=== PATIENT | female | born 1965 | race Caucasian/White ===

== ENCOUNTER 2024-10-17 13:40 | Outpatient (CLI) | payer MEDICARE, SELFPAY ==
--- OUTSIDE RECORDS SUMMARY | 2024-10-17 14:04 | XMS_ITS | Patient Health Record ---
Author Organization [facility] Address [address] [address] [place] [address] Care Team Providers Care Shipping Room Supervisor Name Role Phone Carlos Osborn Unavailable [phone] Reason For Referral No Information Medications Medication SIG (Take, Route, Frequency, Duration) Notes Start Date End Date Status Escitalopram Oxalate 10 mg TAKE ONE TABL ET BY MOUTH DAILY AT 9 AM; Duration: 90 Active Calcitriol 0.25 MCG 1 capsule Orally Onc e a day; Duration: 90 days 11/25/2023 01/14/2025 Active Vitamin D (Ergocalciferol) 1.25 MG (32245 UT) TAKE 1 CAPSULE BY MOUTH EVERY TUESDAY AT 9AM ONE TIME A WEEK; Duration: 88 Active Allopurinol 200 MG 1 tablet Orally Once a day; Duration: 90 days 11/25/2023 01/14/2025 Active Losartan Potassium 25 MG 1 tablet Orally Once a day; Duration: 90 days 06/16/2022 Active Problems Problem Type SNOMED Code ICD Code Onset Dates Problem Status W/U Status Risk Notes Problem Hyperglycemia due to type 2 diabetes mellitus (819760833048574) Type 2 diabetes mellitus with hyperglycemia (E11.65) Active confirmed Problem Vitamin D deficiency (35842816) Vitamin D deficiency, unspecified (E55.9) Active confirmed Problem Essential hypertension (83728361) Essential (primary) hypertension (I10) Active confirmed Problem Heart failure (62818901) Heart failure, unspecified (I50.9) Active confirmed Problem Chronic kidney disease stage 2 (345689316) Chronic kidney disease, stage 2 (mild) (N18.2) Active confirmed Problem Chronic kidney disease stage 3 (disorder) (804724814) Chronic kidney disease, stage 3 unspecified (N18.30) Active confirmed Problem Chronic kidney disease, stage 3b (N18.32) Active confirmed Encounters Encounter Location Date Provider Diagnosis [place] [facility] [address] [facility] [address] [place] [address] 10/21/2023 Carlos Osborn Chronic kidney disease, stage 3b N18.32 ; Essential (primary) hypertension I10 ; Type 2 diabetes mellitus with hyperglycemia E11.65 ; Heart failure, unspecified I50.9 and Vitamin D deficiency, unspecified E55.9 [facility] [address] [place] [address] 11/25/2023 Carlos sOborn Chronic kidney disease, stage 3 unspecified N18.30 ; Type 2 diabetes mellitus with hyperglycemia E11.65 ; Essential (primary) hypertension I10 ; Proteinuria, unspecified R80.9 ; Heart failure, unspecified I50.9 and Vitamin D deficiency, unspecified E55.9 [facility] [address] [place] [address] 01/20/2024 Carlos Osborn Essential (primary) hypertension I10 ; Chronic kidney disease, stage 3b N18.32 ; Heart failure, unspecified I50.9 ; Type 2 diabetes mellitus with hyperglycemia E11.65 ; Vitamin D deficiency, unspecified E55.9 ; Chronic kidney disease, stage 3 unspecified N18.30 and Chronic kidney disease, stage 2 (mild) N18.2 [facility] [address] [place] [address] 07/31/2024 Carlos Osborn [facility] [place] [facility] [address] [place] [address] 07/31/2024 Carlos Osborn [facility] [address] [place] [address] 11/25/2023 Carlos Osborn [facility] [address] [facility] [address] [place] [address] 01/20/2024 Carlos Osborn Assessments Encounter Date Diagnosis (ICD Code) Assessment Notes Treatment Notes Treatment Clinical Notes Section Notes 10/21/2023 Chronic kidney disease, stage 3b (ICD-10 - N18.32) 11/25/2023 Chronic kidney disease, stage 3 unspecified (ICD-10 - N18.30) 01/20/2024 Essential (primary) hypertension (ICD-10 - I10) 01/20/2024 Chronic kidney disease, stage 3b (ICD-10 - N18.32) 01/20/2024 Heart failure, unspecified (ICD-10 - I50.9) 11/25/2023 Type 2 diabetes mellitus with hyperglycemia (ICD-10 - E11.65) 10/21/2023 Essential (primary) hypertension (ICD-10 - I10) 10/21/2023 Type 2 diabetes mellitus with hyperglycemia (ICD-10 - E11.65) 11/25/2023 Essential (primary) hypertension (ICD-10 - I10) 01/20/2024 Type 2 diabetes mellitus with hyperglycemia (ICD-10 - E11.65) 01/20/2024 Vitamin D deficiency, unspecified (ICD-10 - E55.9) 11/25/2023 Proteinuria, unspecified (ICD-10 - R80.9) 10/21/2023 Heart failure, unspecified (ICD-10 - I50.9) 10/21/2023 Vitamin D deficiency, unspecified (ICD-10 - E55.9) 11/25/2023 Heart failure, unspecified (ICD-10 - I50.9) 01/20/2024 Chronic kidney disease, stage 3 unspecified (ICD-10 - N18.30) 01/20/2024 Chronic kidney disease, stage 2 (mild) (ICD-10 - N18.2) 11/25/2023 Vitamin D deficiency, unspecified (ICD-10 - E55.9) Plan Of Treatment No Information
--- OUTSIDE RECORDS SUMMARY | 2024-10-17 14:04 | XMS_ITS | Clinical Summary ---
Author Organization [facility] Address [address] [place] [address] Care Team Providers Care Utility Sales Representative Name Role Phone Ronnell Smith MD Primary Care Provider + [phone] Allergies No known active allergies Medications albuterol HFA (PROVENTIL HFA,VENTOLIN HFA,PROAIR HFA) 90 mcg/actuation inhaler albuterol sulfate HFA 90 mcg/actuation aerosol inhaler INHALE 2 PUFFS BY MOUTH EVERY 4 HOURS Active atorvastatin (LIPITOR) 20 mg tablet Take 20 mg by mouth daily with dinner 0 Active OneTouch Verio test strips strip USE TO TEST BS BID 0 Active blood-glucose meter (OneTouch Verio Meter) [facility] OneTouch Verio Meter USE TO TEST BS ONCE DAILY Active lancets 33 gauge [facility] OneTouch Delica Plus Lancet 33 gauge USE TO TEST BS BID Active aspirin 81 mg enteric coated tablet Take 81 mg by mouth daily with dinner Active dapagliflozin (FARXIGA) 10 mg tabletIndication s:type 2 diabetes mellitus and heart failure with reduced ejection fraction Take 1 tablet (10 mg total) by mouth daily before dinner 30 tablet 1 Active carvediloL (COREG) 6.25 mg tablet Take 6.25 mg by mouth daily with dinner 1 Active clopidogreL (PLAVIX) 75 mg tablet Take 75 mg by mouth daily with dinner 1 Active cholecalciferol (VITAMIN D-3) 25 mcg (1,000 unit) tablet Take 1,000 Units by mouth daily 0 Active ferrous gluconate (FERGON) 240 mg (27 mg of elemental iron) tablet Take 1 tablet by mouth daily 0 Active glucosamine-meghan droitin 500-400 mg tablet Take 1 tablet by mouth daily 0 Active TURMERIC ORAL Take 500 mg by mouth daily Active Lactobacillus acidophilus (PROBIOTIC ACIDOPHILUS ORAL) Take 1 capsule by mouth daily Active amiodarone (PACERONE) 200 mg tabletIndication s:Prevention of Recurrent Atrial Fibrillation Take 1 tablet (200 mg total) by mouth daily 30 tablet 1 Active meclizine (ANTIVERT) 25 mg tabletIndication s:Vertigo [The details of the medication are not available because there are pending changes by a home health clinician.] 30 tablet 1 Active Additional Information Patient taking differently:25 mg oral4 times daily PRN, dizziness, nausea, Indications: Vertigo, Reported on 06/11/2020 furosemide (LASIX) 40 mg tablet [The details of the medication are not available because there are pending changes by a home health clinician.] 30 tablet 1 Active Additional Information Patient taking differently: 20 mgoral Daily,Indications: Edema, Reported on 06/24/2020 Active Problems Problem Noted Date Diagnosed Date Coronary artery disease invo lving [place] heart without angina pectoris 05/26/2020 Overview (05/26/2020): Added automatically from request for surgery [id number] Lightheadedness 01/10/2020 Assessment & Plan (02/11/2020 9:22 AM NUTRITION THERAPIST): Patient has undergone MRA brain which demonstrates no evidence of large vessel vertebral basilar insufficiency. As per my initial note, I had recommended that if the MRA was unrevealing of large vessel vertebral basilar insufficiency, then I would recommend she follow-up with her PCP for consideration of referral for tilt- table testing for further investigation of potential autonomic neuropathy as the etiology for her lightheadedness. Assessment & Plan (01/10/2020 9:12 AM CDT): Patient reports a several month history of recurrent lightheadedness. Diagnostic considerations would include vertebrobasilar insufficiency and possible autonomic neuropathy associated with her diabetes. I will obtain an MRI and MR angiogram of the brain to screen for vertebrobasilar insufficiency. If unrevealing she may wish to pursue a tilt-table evaluation to evaluate for a potential autonomic neuropathy. Episodic tension-type headache, not intractable 01/10/2020 Assessment & Plan (02/11/2020 9:21 AM NUTRITION THERAPIST): Patient describes continued episodic headaches with clear historical characterization consistent with muscle contraction type headaches. She does have an upcoming MRI brain scheduled for February 21 to exclude structural abnormalities accounting for her headaches. I have asked that to upon its completion that she contact this office for the results and any further recommendations. Follow-up with me will be based on the MRI results and follow-up recommendations. Assessment & Plan (01/10/2020 9:11 AM CDT): Patient provides a historical description of headache consistent with muscle contraction type head pains. She does have a noncontrast CT scan of the brain which is normal. As part of further evaluation I will obtain an MRI and MR angiogram of the brain. Idiopathic peripheral neuropathy 01/10/2020 Assessment & Plan (02/11/2020 9:21 AM NUTRITION THERAPIST): Patient has history of peripheral neuropathy in the examination consistent demonstrating a reflexia in her ankle jerks and a sensory loss in a stocking distribution symmetrically. Assessment & Plan (01/10/2020 9:13 AM CDT): Patient has clinical evidence of peripheral neuropathy manifest as a stocking distribution sensory loss in addition to a reflexia and her ankle jerks. She is not having any pain issues at this time. Dyslipidemia 07/06/2019 Diabetes mellitus 05/11/2019 Immunizations Immunization Administration Dates Next Due Influenza, Quadrivalent, Spl it, Preservative Free, Intramuscular 02/24/2020 Surgical History Surgery Date Site/Laterality Comments LUNG SURGERY Left empyema TUBAL LIGATION Medical History Medical History Date Comments Smoking High cholesterol PONV (postoperative nausea and vomiting) Coronary artery disease Mitral valve disorder Wound, open, foot left heel, isaiah betic wound Pleural effusion on right Type 2 diabetes mellitus (HCC) Anemia Arthritis Family History Medical History Relation Name Comments Alcohol abuse Father Atrial fibrillation Mother Diabetes Mother No Known Problems Sister 1 Diabetes Sister 2 Heart attack Sister 2 Relation Name Status Comments Father Mother Alive Sister 1 Alive Sister 2 Social History Tobacco Use Types Packs/Day Years Used Date Smoking Tobacco: Every Day Smokeless Tobacco: Never Tobacco Cessation:Ready to Q uit: Yes; Counseling Given: Yes Comments:3 cigarettes daily Social Connection and Isolat ion Panel [NHANES] Answer Date Recorded In a typical week, how many times do you talk on the phone with family, friends, or neighbors? More than three times a week 05/22/2020 How often do you get togethe r with friends or relatives? More than three times a week 05/22/2020 How often do you attend chur ch or yazdanism services? Never 05/22/2020 Do you belong to any clubs o r organizations such as sabianist groups, unions, fraternal or athletic groups, or school groups? No 05/22/2020 How often do you attend meet ings of the clubs or organizations you belong to? Never 05/22/2020 Marital Status Not on file 05/22/2020 AUDIT-C Answer Date Recorded Q1: How often do you have a drink containing alc ohol? Monthly or less 05/30/2020 Q2: How many drinks containi ng alcohol do you have on a typical day when you are drinking? 3 or 4 05/30/2020 Frequency of Binge Drinking Not on file 05/19 Overall Financial Resource Strain (CARDIA) Answe r Date Recorded How hard is it for you to pa y for the very basics like food, housing, medical care, and heating? Not hard at all 05/22/2020 PRAPARE - Transportation Answer Date Re corded In the past 12 months, has l ack of transportation kept you from medical appointments or from getting medications? No 06/2020 In the past 12 months, has l ack of transportation kept you from meetings, work, or from getting things needed for daily living? No 05/22/2020 Comments No Sex and Gender Information Value Date Recorded Sex Assigned at Not on file Legal Sex Female 1:13 AM NUTRITION THERAPIST Gender Identity Not on file Sexual Orientation Not on file Obstetrics History Para Term AB IAB SAB Ectopic Multiple Livin g Live Births 2 2 2 Date Outcome GA Total Labor Labor/2nd/3rd Weight Sex Type Anes PTL Lissett A1 A5 Name Clin Term Term Last Filed Vital Signs Vital Sign Reading Time Taken Comments Blood Pressure 112/82 07/09/2020 1:41 PM CDT Pulse 82 07/09/2020 1:41 PM CDT Temperature 36.7 C (98 F) 07/09/2020 1:41 PM CDT Respiratory Rate 14 07/09/2020 1:41 PM CDT Oxygen Saturation 99% 07/09/2020 1:41 PM CDT Inhaled Oxygen Concentration - - Weight 69.9 kg (154 lb) 07/09/2020 1:41 PM CDT Height 157.5 cm (5' 2) 07/09/2020 1:41 PM CDT Body Mass Index 28.17 07/09/2020 1:41 PM CDT Plan of Treatment Not on file Medical Devices Implanted Type Area Automatic Head Sawyer Device Identifier Shelf Expiration Date Model / Serial / Lot [employer] [id number] Solia S 53cm Steroid Elute Bipolar Active Fixation Endocardial - [id number] - [id number] Implanted:Qty: 1 on 06/06/2020 by Omero Osullivan MD at [facility] Lead [employer] [id number] 02/17/2022 [id number] / [id number] 90 / [employer] [id number] Solia S 45cm Bipolar Active Fixation Lead Pacing Steroid Eluting - [id number] - [id number] Implanted:Qty: 1 on 06/06/2020 by Omero Osullivan MD at [facility] Lead [employer] [id number] 02/17/2022 [id number] / [id number] 97 / [employer] [id number] Edora Promri 47b67t2.5mm Dual Chamber Rate Adaptive Unipolar Bipolar - [id number] - [id number] Implanted:Qty: 1 on 06/06/2020 by Omero Osullivan MD at [facility] Pacemaker [employer] [id number] 08/18/2021 [id number] / [id number] / [employer] [id number] Didier-Naza rtgalilea-Smith Imr Etlogix 28mm 3d Reduced Curvature - [id number] - [id number] Implanted:Qty: 1 on 06/02/2020 by Hosea Carreon MD at [facility] N/A: Heart [employer] 02/16/2025 [id number] / [id number] / Description:Mitral ring [employer] [id number] Ozzy [facility] Physio 28mm Tricuspid Ring Annuloplasty Heart - [id number] - [id number] Implanted:Qty: 1 on 06/02/2020 by Hosea Carreon MD at [facility] N/A: Heart [employer] 02/04/2025 [id number] / [id number] / Description:Tricuspid ring Insurance [facility] MEDICARE ADVANTAGE IDPA IDPA [facility] MEDICARE ADVANTAGE IDPA Advance Directives For more information, please contact: [phone] * Full Code (Latest Code Status on File) Date Activated Date Inactivated Comments 06/02/2020 4:51 PM 06/09/2020 10:02 PM * Full Code Date Activated Date Inactivated Comments 05/21/2020 3:35 PM 05/24/2020 6:03 PM Care Teams Utility Sales Representative Relationship Specialty Start Date End Date Ronnell Smith MD PCP - General Internal Medicine 02/11/20
--- OUTSIDE RECORDS SUMMARY | 2024-10-17 14:04 | XMS_ITS | Continuity of Care Document ---
Author Organization [facility] Address [address] [facility] [address] [place] [address] Phone Care Team Providers Care Intelligence Support Officer Name Role Phone Cynthia Vang Unavailable Unavailable Advance Directives Directive Yes / No Effective Date File Name No Information Encounters Encounter Description Practice Location Reason(s) For Visit Diagnoses Date Provider Providers Copied on Encounter [facility], [address], [place], [place], [address], [place] tel:[phone] [facility] [place] No Information Sep-0 4-200 1 Ciera Marie. [address] [facility] , [address], [place], [address], [place]. tel:[phone] Family History Family Member Type Diagnosis Age At Onset No Information Payers Payer name Insurance type Covered alliance party ID Authoriza tion(s) No Information Social History Type Description Quantity Date Captured Comments Sex Female Smoking Status No Information Chief Complaint And Reason For Visit No Information Reason For Referral Reason For Referral No Information History Of Present Illness Encounter Date Complaint History Of Prese nt Illness No Information Functional Status Date Functional Assessmen t No Information Instructions Date Instruction Additional Infor mation No Information Assessments Type Assessment Date No Information Patient Care Teams Name Effective Dates (start - stop) Status Members No Information
--- OUTSIDE RECORDS SUMMARY | 2024-10-17 14:04 | XMS_ITS | Referral Summary ---
Author Organization [facility] Address [address] [place] [address] Care Team Providers Care Electric Motorman Name Role Phone Ronnell Smith MD Primary Care Provider + [phone] Allergies No known active allergies Medications albuterol HFA (PROVENTIL HFA,VENTOLIN HFA,PROAIR HFA) 90 mcg/actuation inhaler albuterol sulfate HFA 90 mcg/actuation aerosol inhaler INHALE 2 PUFFS BY MOUTH EVERY 4 HOURS Active atorvastatin (LIPITOR) 20 mg tablet Take 20 mg by mouth daily with dinner 0 Active OneTouch Verio test strips strip USE TO TEST BS BID 0 Active blood-glucose meter (OneTouch Verio Meter) [facility] OneTouch Verio Meter USE TO TEST BS ONCE DAILY Active lancets 33 gauge [facility] OneTouch Delica Plus Lancet [...] Diagnosed Date Coronary artery disease invo lving [place] heart without angina pectoris 05/26/2020 Overview (05/26/2020): Added automatically from request for surgery [id number] Lightheadedness 01/10/2020 Assessment & Plan (02/11/2020 9:22 AM VIDEO PRODUCTION SPECIALIST): Patient has undergone MRA brain which demonstrates [...] 01/10/2020 Assessment & Plan (02/11/2020 9:21 AM VIDEO PRODUCTION SPECIALIST): Patient describes continued episodic headaches with clear [...] 01/10/2020 Assessment & Plan (02/11/2020 9:21 AM VIDEO PRODUCTION SPECIALIST): Patient has history of peripheral neuropathy in [...] Quadrivalent, Spl it, Preservative Free, Intramuscular 02/24/2020 Social History Tobacco Use Types Packs/Day Years [...] often do you attend chur ch or zoroastrianism services? Never 05/22/2020 Do you belong to any clubs o r organizations such as restorationist groups, unions, fraternal or athletic groups, or [...] on file Legal Sex Female 1:13 AM VIDEO PRODUCTION SPECIALIST Gender Identity Not on file Sexual Orientation Not on file Last Filed Vital Signs Vital Sign Reading [...] on file Medical Devices Implanted Type Area Office Support Associate Device Identifier Shelf Expiration Date Model / Serial / Lot Bi[employer]ik Inc [id number] Solia S 53cm Steroid Elute Bipolar Active Fixation Endocardial - [id number] - [id number] Implanted:Qty: 1 on 06/06/2020 by Omero Osullivan MD at [facility] Lead [employer] [id number] 02/17/2022 [id number] / [id number] 90 / [employer] [id number] Solia S 45cm Bipolar Active Fixation Lead Pacing Steroid Eluting - [id number] - [id number] Implanted:Qty: 1 on 06/06/2020 by Omero Osullivan MD at [facility] Lead [employer] [id number] 02/17/2022 [id number] / [id number] 97 / [employer] [id number] Edora Promri 01c98e6.5mm Dual Chamber Rate Adaptive Unipolar Bipolar - [id number] - [id number] Implanted:Qty: 1 on 06/06/2020 by Omero Osullivan MD at [facility] Pacemaker [employer] [id number] 08/18/2021 [id number] / [id number] / [employer] [id number] Sue west-Smith Imr Etlogix 28mm 3d Reduced Curvature - [id number] - [id number] Implanted:Qty: 1 on 06/02/2020 by Hosea Carreon MD at [facility] N/A: Heart [employer] 02/16/2025 [id number] / [id number] / Description:Mitral ring [employer] [id number] Ozzy rds Physio 28mm Tricuspid Ring Annuloplasty Heart - [id number] - [id number] Implanted:Qty: 1 on 06/02/2020 by Hoesa Carreon MD at [facility] N/A: Heart [employer] 02/04/2025 [id number] / [id number] / Description:Tricuspid ring Insurance [facility] MEDICARE ADVANTAGE [facility] Address: [address] [address] [place] [address] IDPA [facility] MEDICARE ADVANTAGE [facility] Address: [facility] [address] [place] [address] IDPA Advance Directives For more information, please contact: [phone] * Full Code (Latest Code Status on File) Date Activated Date Inactivated Comments 06/02/2020 4:51 PM 06/09/2020 10:02 PM * Full Code Date Activated Date Inactivated Comments 05/21/2020 3:35 PM 05/24/2020 6:03 PM Care Teams Electric Motorman Relationship Specialty Start Date End Date Ronnell Smith MD PCP - General Internal Medicine 02/11/20
--- OUTSIDE RECORDS SUMMARY | 2024-10-17 14:04 | XMS_ITS ---
Author Organization [facility] Address [address] [facility] [address] [facility] [address] [place] [address] Care Team Providers Care Lathe Mechanic Name Role Phone Anurag Carlos Unavailable [phone] Encounters Encounter Location Date Provider Diagnosis [place] [facility] [address] [facility] [address] [place] [address] 03/30/2024 Carlos Osborn Plan Of Treatment No Information Progress Notes * SANJAY GUERRAB:1965 (59 yo M)Acc No.[id number]:03/30/2024 Progress Notes Patient: NANDA GLORIA Provider: Tiny RUFF MD, Tad.Phu.C.P, F.A.S.N. :1965 A ge:59 Y S ex:Male Date:03/30/2024 Address:[address] [place] [address] Subjective: * Chief Complaints: * * Medical History: Objective: * Vitals: Assessment: Plan: * Treatment: * Billing Information: * Visit Code: * Procedure Codes: * Electronic signature of Anand Osborn MD on 10/17/2024 at 02:04 PM CDT Sign off status: Pending * Provider: Tiny RUFF MD, F.Phu.C.P, F.A.S.N. Date: 0 03/30/2024 Generated for Printing/Faxing/eTransmitting on: 10/17/2024 02:04 PM CDT
--- OUTSIDE RECORDS SUMMARY | 2024-10-17 14:04 | XMS_ITS ---
Author Organization [facility] Address [address] [address] [place] [address] Care Team Providers Care Dredge Pipeman Name Role Phone Anurag Carlos Unavailable [phone] Medications Medication SIG (Take, Route, Frequency, Duration) Notes Start Date End Date Status Escitalopram Oxalate 10 mg TAKE ONE TABL ET BY MOUTH DAILY AT 9 AM; Duration: 90 Active Vitamin D (Ergocalciferol) 1.25 MG (41683 UT) TAKE 1 CAPSULE BY MOUTH EVERY TUESDAY AT 9AM ONE TIME A WEEK; Duration: 88 Active Losartan Potassium 25 MG 1 tablet Orally Once a day; Duration: 90 day(s) 06/16/2022 Active Problems Problem Type SNOMED Code ICD Code Onset Dates Problem Status W/U Status Risk Notes Problem Chronic kidney disease, stage 3 unspecified (N18.30) Active confirmed Encounters Encounter Location Date Provider Diagnosis [facility] [address] [facility] [address] [place] [address] 11/25/2023 Carlos Osborn Chronic kidney disease, stage [...] - E55.9) Plan Of Treatment No Information Progress Notes * SANJAY GUERRAB:1965 (59 yo M)Acc No.[id number]:[birth year]23 Progress Notes Patient: NANDA GLORIA Provider: Tiny RUFF MD, Mechelle.P, F.A.S.N. :1965 A ge:58 Y S ex:Male Date:11/25/2023 Address:[address] [place] [address] Subjective: * Chief Complaints: * * Medical History: * Medications: T aking Losartan Potassium 25 MG Tablet 1 tablet Orally Once a day , Taking Vitamin D (Ergocalciferol) 1.25 MG (71761 UT) Capsule TAKE 1 CAPSULE BY MOUTH [...] Treatment: * Billing Information: * Visit Code: 54640 Office Visit, Est Pt., Level 4. * Procedure Codes: * Electronic signature of Anand Osborn MD on 10/17/2024 at 02:03 PM CDT Sign off status: Pending * Provider: Tiny RUFF MD, Tad.Phu.Brant.P, F.A.S.N. Date: 11/25/2023 Generated for Printing/Faxing/eTransmitting on: 10/17/2024 02:03 PM CDT
--- OUTSIDE RECORDS SUMMARY | 2024-10-17 14:04 | XMS_ITS | Clinical Summary ---
Author Organization [facility] Address [address] [place] [address] Care Team Providers Care Anthropology Professor Name Role Phone Ronnell Smith MD Primary Care Provider [phone] Social History Tobacco Use Types Packs/Day Years Used Date Smoking Tobacco: Never Assessed Comments Unknown Sex and Gender Information Value Date Recorded Sex Assigned at Not on file Legal Sex Female 2:07 PM CDT Gender Identity Not on file Sexual Orientation Not on file Plan of Treatment Health Maintenance Due Date Last Done Comments Cervical Cancer Screening Pa p Smear (Age 30 to 64) Every 3 Years 1965 Colorectal Cancer Screening Colonoscopy (10 Years) 1965 Annual Physical 1968 Hepatitis C 1983 DTaP, Tdap and Td Vaccines ( 1 - Tdap) 1984 Cervical Cancer Screening Pa p with HPV Testing (Age 30 to 64) Every 5 Years 1995 Cervical Cancer Screening with HPV 1995 Mammogram Screening 2005 Pneumococcal Vaccine: 50+ Ye ars (1 of 1 - PCV) 2015 Zoster Vaccines (1 of 2) 2015 COVID-19 Vaccine (2023-2 5 season) 2023 Meningococcal B Vaccine Aged Out No l onger eligible based on patient's age to complete this topic Meningococcal Vaccine Aged Out No sayra solo eligible based on patient's age to complete this topic RSV Immunizations Under 20 Months Aged Out No longer eligible based on patient's age to complete this topic Insurance [facility] Care Teams Anthropology Professor Relationship Specialty Start Date End Date Ronnell Smith MD PCP - General INTERNAL MEDICINE 11/29/19
--- OUTSIDE RECORDS SUMMARY | 2024-10-17 14:05 | XMS_ITS | Clinical Summary ---
Author Organization [facility] Address [address] [facility], [place] [address] Phone Care Team Providers Care Proposal Lead Writer Name Role Phone Renzo Castañeda APRN, ART COORDINATOR Primary Care Provider + Allergies No known active allergies Medications meloxicam (MOBIC) 7.5 MG Tablet TK 1 T PO BID 3 09/04/2018 Active Family History Medical History Relation Name Comments Heart Disease Father Diabetes Mother Relation Name Status Comments Father Mother Social History Tobacco Use Types Packs/Day Years Used Date Smoking Tobacco: Every Day Cigarettes 0.5 37 Smokeless Tobacco: Never Alcohol Use Standard Drinks/Week Comments Yes 0 (1 standard drink = 0.6 oz pur e alcohol) occasional Comments Unknown Sex and Gender Information Value Date Recorded Sex Assigned at Not on file Legal Sex Female 11:41 AM CDT Gender Identity Not on file Sexual Orientation Not on file Plan of Treatment Health Maintenance Due Date Last Done Comments Hepatitis C Virus (HCV) Screening 1965 TdaP Immunization 1965 Pap Smear 1986 Cervical Cancer Screening (CCS) 1995 HPV/Cotest 1995 Cologuard 2010 Colonoscopy 2010 Colorectal Cancer Screening 2010 Immunochemical Fecal Occult Blood 2010 Pneumococcal Immunization (5 0+ years) (1 of 1 - PCV) 2015 Zoster Immunization (1 of 2) 2015 SARS-COV-2 Immunization (1 - 2023- season) 2023 Influenza Immunization (#1) 2024 04/11/2014 Respiratory Syncytial Virus (RSV) Immunization (Adult) (1 - 1-dose 75+ series) 2040 Hepatitis B Immunization Completed 001, 08/29/2000, 06/06/2000 Human Papillomavirus (HPV) Immunization Aged Out No longer eligible b ased on patient's age to complete this topic Meningococcal Immunization (ACWY) Aged Out No longer eligible b ased on patient's age to complete this topic Rotavirus Immunization Aged Out No lo nger eligible based on patient's age to complete this topic Insurance [address] [address] Care Teams Proposal Lead Writer Relationship Specialty Start Date End Date Renzo Castañeda, YARDING SUPERVISOR, ART COORDINATOR [address] [place] [address] [address] [place] [address] PCP - General Internal Medicine 09/22/18
--- OUTSIDE RECORDS SUMMARY | 2024-10-17 14:05 | XMS_ITS ---
Author Organization [facility] Address [address] [address] [place] [address] Care Team Providers Care Airborne Operations Name Role Phone Carlos Osborn Unavailable [phone] Medications Medication SIG (Take, Route, Frequency, Duration) [...] 90 Active Vitamin D (Ergocalciferol) 1.25 MG (78625 UT) TAKE 1 CAPSULE BY MOUTH EVERY TUESDAY AT 9AM ONE TIME A WEEK; Duration: 88 Active Losartan Potassium 25 MG 1 tablet Orally Once a day; Duration: 90 days 06/16/2022 Active Encounters Encounter Location Date Provider Diagnosis [place] [facility] 2043 [facility] 15 [place] [address] 01/20/2024 Carlos Osborn Essential (primary) hypertension I10 [...] (mild) (ICD-10 - N18.2) Plan Of Treatment No Information Progress Notes * SANJAY GUERRAB:1965 (59 yo M)Acc No.[id number]:01/20/2024 Progress Notes Patient: NANDA GLORIA Provider: Tiny RUFF MD, F.A.C.P, F.A.S.N. :1965 A ge:58 Y S ex:Male Date:01/20/2024 Address:[address] [place] [address] Subjective: * Chief Complaints: * * Medical History: * Medications: T aking Losartan Potassium 25 MG Tablet 1 tablet Orally Once a day , Taking Allopurinol 200 MG Tablet 1 tablet Orally Once a day , stop date 11/19/2024, Taking Calcitriol 0.25 MCG Capsule 1 capsule Orally Once a day , stop date 11/19/2024, Taking Vitamin D (Ergocalciferol) 1.25 MG (72349 UT) Capsule TAKE 1 CAPSULE BY MOUTH [...] Treatment: * Billing Information: * Visit Code: 78658 Office Visit, Est Pt., Level 4. * Procedure Codes: * Electronic signature of Anand Osborn MD on 10/17/2024 at 02:04 PM CDT Sign off status: Pending * Provider: Tiny RUFF MD, F.A.C.P, F.A.S.N. Date: 03/21/2023 Generated for Printing/Faxing/eTransmitting on: 0 10/17/2024 02:04 PM CDT
[2024-10-17 14:42] LABS: Hematocrit 32.0 % (37.0-47.0); Hemoglobin 9.8 g/dL (12.0-15.0); Immature Granulocyte Percent A 0.3 % (0-0.5); Lymphocytes Absolute Auto 0.82 K/mm3 (0.9-3.2); Mean Corpuscular HGB Conc 30.6 g/dl (32-36); Mean Corpuscular Hemoglobin 28.7 pg (26-34); Mean Corpuscular Volume 93.6 fl (80-100); Nucleated Red Blood Cells Absolute Auto 0.000 K/mm3 (0.0-0.012); Nucleated Red Blood Cells Perc 0.0 % (0.0-0.2); Platelet Count Result 206 k/mm3 (150-375); Red Blood Count 3.42 M/mm3 (4.2-5.4); White Blood Count 6.0 K/mm3 (4.5-10.0)
[2024-10-17 14:53] LABS: Add Urine Microscopic? YES; Appearance Urine Clear (Clear); Glucose Urine UA 2+ mg/dL (Negative); Leukocyte Esterase Ur 1+ LEU/UL (Negative); Nitrate Urine Negative (Negative); Non Pathogenic Casts 0-2; Specific Grav Ur 1.010 (1.001-1.035)
[2024-10-17 15:03] LABS: Alanine Aminotransferase 15 U/L (6-35); Albumin Level 4.0 g/dL (3.5-5.1); Alkaline Phosphatase 63 U/L (38-126); Anion Gap 8 mmol/L (4-12); Aspartate Amino Transferase 24 U/L (14-36); Bilirubin,Total 0.6 mg/dL (0.2-1.3); Blood Urea Nitrogen 48 mg/dL (7-17); Calcium 9.1 mg/dL (8.4-10.2); Carbon Dioxide 26 mmol/L (22-30); Chloride 102 mmol/L (98-107); Cholesterol 157 mg/dL (0-200); Estimated Glomerular Filt Rate 21; Glucose 126 mg/dL (65-110); HDL Direct 36 mg/dL; Potassium 5.0 mmol/L (3.4-5.0); Sodium 136 mmol/L (137-145); Total Protein 7.2 g/dL (6.3-8.2); Triglycerides 154 mg/dL (<150)
[2024-10-17 15:04] LABS: Uric Acid 7.6 mg/dL (2.5-7.5)
[2024-10-17 15:12] LABS: Parathyroid Intact 108.6 pg/mL (14.5-75.2)
[2024-10-17 15:41] LABS: Thyroid Stimulating Hormone 3.540 uIU/mL (0.465-4.680)
[2024-10-17 17:58] LABS: MALB Creatinine Ratio 2839.5 mg/g (0-30)
[2024-10-17 18:13] LABS: Hemoglobin A1C 7.4 % (<5.7)
== END 2024-10-17 13:41 | disposition home or self-care (01) ==
PROVIDERS: PCP Internal Medicine Infectious Disease; Referring Provider Internal Medicine Infectious Disease; Visit Provider Specialist
DX: I12.9 Hypertensive chronic kidney disease with stage 1 through stage 4 chronic kidney disease, or unspecified chronic kidney disease (principal); E11.22 Type 2 diabetes mellitus with diabetic chronic kidney disease; N18.30 Chronic kidney disease, stage 3 unspecified; E11.65 Type 2 diabetes mellitus with hyperglycemia; E55.9 Vitamin D deficiency, unspecified; R60.9 Edema, unspecified; E53.0 Riboflavin deficiency; E21.3 Hyperparathyroidism, unspecified; R94.6 Abnormal results of thyroid function studies; D64.9 Anemia, unspecified; Z51.81 Encounter for therapeutic drug level monitoring; Z79.899 Other long term (current) drug therapy
CPT/HCPCS: 36415; 80053; 80061; 81001; 82043; 82306; 83036; 83970; 84443; 84550; 85025; 87086

== ENCOUNTER 2025-01-31 13:19 | Outpatient (CLI) | payer MEDICARE, SELFPAY ==
--- OUTSIDE RECORDS SUMMARY | 2023-08-24 08:00 | XMS_ITS ---
Author Organization [facility] Office Address [address] [address] [place] [address] Care Team Providers Care Phonograph Needle Tip Maker Name Role Phone Anurag Carlos Unavailable [phone] Medications Medication SIG (Take, Route, Frequency, Duration) Notes Start Date End Date Status Lexapro 10 MG 1 tablet Orally Once a day; Duration: 90 days 12/01/2022 Active Vitamin D (Ergocalciferol) 1.25 MG (32576 UT) TAKE 1 CAPSULE BY MOUTH EVERY TUESDAY AT 9AM ONE TIME A WEEK; Duration: 88 Active Losartan Potassium 25 MG 1 tablet Orally Once a day; Duration: 90 day(s) 06/16/2022 Active Social History Sex Assigned At : Social History Observation Description Sex Assigned At Female Encounters Encounter Location Date Provider Diagnosis [place] [facility] 2043 [facility] 15 [place] [address] 08/24/2023 Carlos Osborn Chronic kidney disease, stage 2 (mild) N18.2 ; Essential (primary) hypertension I10 ; Heart failure, unspecified I50.9 ; Type 2 diabetes mellitus with hyperglycemia E11.65 and Vitamin D deficiency, unspecified E55.9 Assessments Encounter Date Diagnosis (ICD Code) Assessment Notes Treatment Notes Treatment Clinical Notes Section Notes 08/24/2023 Chronic kidney disease, stage 2 (mild) (ICD-10 - N18.2) 08/24/2023 Essential (primary) hypertension (ICD-10 - I10) 08/24/2023 Heart failure, unspecified (ICD-10 - I50.9) 08/24/2023 Type 2 diabetes mellitus with hyperglycemia (ICD-10 - E11.65) 08/24/2023 Vitamin D deficiency, unspecified (ICD-10 - E55.9) Plan Of Treatment Next Appt Details Provider Name:Carlos Anurag , 02/06/2025 04:30:00 PM, [address] Katie Amada, [facility], [place], [address], Progress Notes * SANJAY GUERRAB:1965 (59 yo M)Acc No.[id number]:08/24/2023 Progress Notes Patient: NANDA GLORIA Provider: Tiny RUFF MD, F.Phu.C.P, F.A.S.N. :1965 A ge:58 Y S ex:Male Date:08/24/2023 Address:[address] [place] [id number] Subjective: * Chief Complaints: * * Medical History: * Medications: T aking Losartan Potassium 25 MG Tablet 1 tablet Orally Once a day , Taking Lexapro 10 MG Tablet 1 tablet Orally Once a day , Taking Vitamin D (Ergocalciferol) 1.25 MG (55932 UT) Capsule TAKE 1 CAPSULE BY MOUTH EVERY TUESDAY AT 9AM ONE TIME A WEEK Objective: * Vitals: Assessment: * Assessment: 1. C hronic kidney disease, stage 2 (mild) - N18.2 (Primary) 2 . E ssential (primary) hypertension - I10 3 . H eart failure, unspecified - I50.9 4 . T ype 2 diabetes mellitus with hyperglycemia - E11.65 5 . V itamin D deficiency, unspecified - E55.9 Plan: * Treatment: * Billing Information: * Visit Code: 59401 Office Visit, Est Pt., Level 4. * Procedure Codes: * Electronic signature of Anand Osborn MD on 01/31/2025 at 02:04 PM INSTALLER APPRENTICE Sign off status: Pending * Provider: Tiny RUFF MD, F.Phu.C.P, F.A.S.N. Date: 0 08/24/2023 Generated for Printing/Faxing/eTransmitting on: 04/02/2024 02:04 PM INSTALLER APPRENTICE
--- OUTSIDE RECORDS SUMMARY | 2023-10-21 09:00 | XMS_ITS ---
Author Organization [facility] Address [address] [place] [address] Care Team Providers Care Tree Surgeon Name Role Phone Carlos Osborn Unavailable [phone] Social History Sex Assigned At : Social History Observation Description Sex Assigned At Female Problems Problem Type SNOMED Code ICD Code Onset Dates Problem Status W/U Status Risk Notes Problem Chronic kidney disease stage 3B (disorder) (393969307) Chronic kidney disease, stage 3b (N18.32) Active confirmed Encounters Encounter Location Date Provider Diagnosis [place] [facility] 2043 [facility] 15 [place] [address] 10/21/2023 Carlos Osborn Chronic kidney disease, stage [...] Next Appt Details Provider Name:Carlos Osborn , 02/06/2025 04:30:00 PM, 2043 [facility], [facility] 15, [place], [address], Progress Notes * CARMELO GUERRA:1965 (59 yo M)Acc No.[id number]:10/21/2023 Progress Notes Patient: NANDA GLORIA Provider: Tiny RUFF MD, F.A.C.P, F.A.S.N. :1965 A ge:58 Y S ex:Male Date:10/21/2023 Address:[address] [place], [place] [id number] Subjective: * Chief Complaints: * * Medical [...] Treatment: * Billing Information: * Visit Code: 65251 Office Visit, Est Pt., Level 4. * Procedure Codes: * Electronic signature of Anand Osborn MD on 01/31/2025 at 02:03 PM FURNITURE SALESPERSON Sign off status: Pending * Provider: Tiny RUFF MD, F.A.C.P, F.A.S.N. Date: 0 10/21/2023 Generated for Printing/Faxing/eTransmitting on: 1 04/02/2024 02:03 PM FURNITURE SALESPERSON
--- OUTSIDE RECORDS SUMMARY | 2023-11-25 09:00 | XMS_ITS ---
Author Organization [facility] Address [address] [place] [address] Care Team Providers Care Secondary School Principal Name Role Phone Anurag Carlos Unavailable [phone] Medications Medication SIG (Take, Route, Frequency, Duration) Notes Start Date End Date Status Escitalopram Oxalate 10 mg TAKE ONE TABL ET BY MOUTH DAILY AT 9 AM; Duration: 90 Active Vitamin D (Ergocalciferol) 1.25 MG (49679 UT) TAKE 1 CAPSULE BY MOUTH EVERY [...] Risk Notes Problem Chronic kidney disease stage 3 (disorder) (261200710) Chronic kidney disease, stage 3 unspecified (N18.30) Active confirmed Encounters Encounter Location Date Provider Diagnosis [place] [facility] 2043 [facility] 15 [place] [address] 11/25/2023 Carlos Osborn Chronic kidney disease, stage [...] Name:Carlos Osborn , 02/06/2025 04:30:00 PM, 2043 [facility], [facility] 15, [place], [address], Progress Notes * SANJAY GUERRAB:1965 (59 yo M)Acc No.[id number]:11/25/2023 Progress Notes Patient: NANDA GLORIA Provider: Tiny RUFF MD, F.A.C.P, F.A.S.N. :1965 A ge:58 Y S ex:Male Date:11/25/2023 Address:[address] [place], [place] [id number] Subjective: * Chief Complaints: * * Medical History: * Medications: T aking Losartan Potassium 25 MG Tablet 1 tablet Orally Once a day , Taking Vitamin D (Ergocalciferol) 1.25 MG (98355 UT) Capsule TAKE 1 CAPSULE BY MOUTH [...] Treatment: * Billing Information: * Visit Code: 22003 Office Visit, Est Pt., Level 4. * Procedure Codes: * Electronic signature of Anand Osborn MD on 01/31/2025 at 02:03 PM MEAT AND SEAFOOD CLERK Sign off status: Pending * Provider: Tiny RUFF MD, F.A.C.P, F.A.S.N. Date: 0 11/25/2023 Generated for Printing/Faxing/eTransmitting on: 1 04/02/2024 02:03 PM MEAT AND SEAFOOD CLERK
--- OUTSIDE RECORDS SUMMARY | 2024-01-20 07:45 | XMS_ITS ---
Author Organization [facility] Address [address] [address] [place] [address] Care Team Providers Care Communications Controller Name Role Phone Carlos Osborn Unavailable [phone] Medications Medication SIG (Take, Route, Frequency, Duration) Notes Start Date End Date Status Calcitriol 0.25 MCG 1 capsule Orally Onc e a day; Duration: 90 days 11/25/2023 11/19/2024 Active Allopurinol 200 MG 1 tablet Orally Once a day; Duration: 90 days 11/25/2023 11/19/2024 Active Escitalopram Oxalate 10 mg TAKE ONE TABL ET BY MOUTH DAILY AT 9 AM; Duration: 90 Active Vitamin D (Ergocalciferol) 1.25 MG (10886 UT) TAKE 1 CAPSULE BY MOUTH EVERY TUESDAY AT 9AM ONE TIME A WEEK; Duration: 88 Active Losartan Potassium 25 MG 1 tablet Orally Once a day; Duration: 90 days 06/16/2022 Active Social History Sex Assigned At : Social History Observation Description Sex Assigned At Female Encounters Encounter Location Date Provider Diagnosis [place] [facility] 2043 [facility] 15 [place] [address] 01/20/2024 Carlos Osborn Essential (primary) hypertension I10 ; Chronic kidney disease, stage 3b N18.32 ; Heart failure, unspecified I50.9 ; Type 2 diabetes mellitus with hyperglycemia E11.65 ; Vitamin D deficiency, unspecified E55.9 ; Chronic kidney disease, stage 3 unspecified N18.30 and Chronic kidney disease, stage 2 (mild) N18.2 Assessments Encounter Date Diagnosis (ICD Code) Assessment Notes Treatment Notes Treatment Clinical Notes Section Notes 01/20/2024 Essential (primary) hypertension (ICD-10 - I10) 01/20/2024 Chronic kidney disease, stage 3b (ICD-10 - N18.32) 01/20/2024 Heart failure, unspecified (ICD-10 - I50.9) 01/20/2024 Type 2 diabetes mellitus with hyperglycemia (ICD-10 - E11.65) 01/20/2024 Vitamin D deficiency, unspecified (ICD-10 - E55.9) 01/20/2024 Chronic kidney disease, stage 3 unspecified (ICD-10 - N18.30) 01/20/2024 Chronic kidney disease, stage 2 (mild) (ICD-10 - N18.2) Plan Of Treatment Next Appt Details Provider Name:Carlos Anurag , 02/06/2025 04:30:00 PM, 2043 [facility], [facility] 15, [place], [address], Progress Notes * MARCIARADHA SANJAYB:1965 (59 yo M)Acc No.[id number]:01/20/2024 Progress Notes Patient: NANDA GLORIA Provider: Tiny RUFF MD, F.A.C.P, F.A.S.N. :1965 A ge:58 Y S ex:Male Date:01/20/2024 Address:[address] [place], [place] [id number] Subjective: * Chief Complaints: * * Medical History: * Medications: T aking Losartan Potassium 25 MG Tablet 1 tablet Orally Once a day , Taking Allopurinol 200 MG Tablet 1 tablet Orally Once a day , stop date 11/19/2024, Taking Calcitriol 0.25 MCG Capsule 1 capsule Orally Once a day , stop date 11/19/2024, Taking Vitamin D (Ergocalciferol) 1.25 MG (54652 UT) Capsule TAKE 1 CAPSULE BY MOUTH EVERY TUESDAY AT 9AM ONE TIME A WEEK , Taking Escitalopram Oxalate 10 mg Tablet TAKE ONE TABLET BY MOUTH DAILY AT 9 AM Objective: * Vitals: Assessment: * Assessment: 1. C hronic kidney disease, stage 3b - N18.32 (Primary) 2 . E ssential (primary) hypertension - I10 3 . H eart failure, unspecified - I50.9 ?4. T ype 2 diabetes mellitus with hyperglycemia - E11.65 5 . V itamin D deficiency, unspecified - E55.9 6 . C hronic kidney disease, stage 3 unspecified - N18.30 7 . C hronic kidney disease, stage 2 (mild) - N18.2 Plan: * Treatment: * Billing Information: * Visit Code: 30898 Office Visit, Est Pt., Level 4. * Procedure Codes: * Electronic signature of Anand Osborn MD on 01/31/2025 at 02:04 PM TYPO MACHINE OPERATOR Sign off status: Pending * Provider: Tiny RUFF MD, F.A.C.P, F.A.S.N. Date: 03/21/2023 Generated for Printing/Faxing/eTransmitting on: 04/02/2024 02:04 PM TYPO MACHINE OPERATOR
--- OUTSIDE RECORDS SUMMARY | 2024-03-30 08:30 | XMS_ITS ---
Author Organization [facility] Address 1400 [facility] 61 [facility] [address] [place] [address] Care Team Providers Care Quiller Operator Name Role Phone Anurag Carlos Unavailable [phone] Social History Sex Assigned At : Social History Observation Description Sex Assigned At Female Encounters Encounter Location Date Provider Diagnosis [place] [facility] 2043 [facility] 15 [place] [address] 03/30/2024 Carlos Osborn Plan Of Treatment Next Appt Details Provider Name:Carlos Osborn , 02/06/2025 04:30:00 PM, [address] [address], [place], [address], Progress Notes * SANJAY GUERRAB:1965 (59 yo M)Acc No.[id number]:03/30/2024 Progress Notes Patient: NANDA GLORIA Provider: Tiny RUFF MD, AryaC.P, F.A.S.N. :1965 A ge:59 Y S ex:Male Date:03/30/2024 Address:[address] [place], [place] [id number] Subjective: * Chief Complaints: * * Medical History: Objective: * Vitals: Assessment: Plan: * Treatment: * Billing Information: * Visit Code: * Procedure Codes: * Electronic signature of Anand Osborn MD on 01/31/2025 at 02:04 PM SUPERVISOR PLASTIC SHEETS Sign off status: Pending * Provider: Tiny RUFF MD, Tad.Phu.C.P, F.A.S.N. Date: 0 03/30/2024 Generated for Printing/Tristen/Xochitlsmitting on: 1 04/02/2024 02:04 PM SUPERVISOR PLASTIC SHEETS
[2025-01-31 13:51] LABS: Hematocrit 32.6 % (37.0-47.0); Hemoglobin 10.2 g/dL (12.0-15.0); Immature Granulocyte Percent A 0.4 % (0-0.5); Lymphocytes Absolute Auto 0.79 K/mm3 (0.9-3.2); Mean Corpuscular HGB Conc 31.3 g/dl (32-36); Mean Corpuscular Hemoglobin 29.7 pg (26-34); Mean Corpuscular Volume 95.0 fl (80-100); Nucleated Red Blood Cells Absolute Auto 0.000 K/mm3 (0.0-0.012); Nucleated Red Blood Cells Perc 0.0 % (0.0-0.2); Platelet Count Result 174 k/mm3 (150-375); Red Blood Count 3.43 M/mm3 (4.2-5.4); White Blood Count 4.5 K/mm3 (4.5-10.0)
--- OUTSIDE RECORDS SUMMARY | 2025-01-31 14:04 | XMS_ITS | Clinical Summary ---
Author Organization [facility] Address [address] [place] [address] Care Team Providers Care Director Of Child Welfare Services Name Role Phone Ronnell Smith MD Primary Care Provider [phone] Social History Tobacco Use Types Packs/Day Years [...] Vaccines (1 of 2) 2015 COVID-19 Vaccine (2024-2 6 season) 2024 Influenza Adult (#1) 2024 Hepatitis A Vaccines Aged Out No long er eligible based on patient's age to complete this topic Meningococcal B Vaccine Aged Out No l onger eligible based on patient's age to complete this topic Meningococcal Vaccine Aged Out No sayra solo eligible based on patient's age to complete this topic RSV Immunizations Under 20 Months Aged Out No longer eligible based on patient's age to complete this topic Insurance [facility] Care Teams Director Of Child Welfare Services Relationship Specialty Start Date End Date Ronnell Smith MD PCP - General INTERNAL MEDICINE 11/29/19
--- OUTSIDE RECORDS SUMMARY | 2025-01-31 14:04 | XMS_ITS | Patient Health Record ---
Author Organization [facility] Address [address] [place] [address] Care Team Providers Care Gang Tailer Name Role Phone Carlos Osborn Unavailable [phone] Reason For Referral No Information Medications Medication SIG (Take, Route, Frequency, Duration) Notes Start Date End Date Status Escitalopram Oxalate 10 mg TAKE ONE TABL ET BY MOUTH DAILY AT 9 AM; Duration: 90 Active Losartan Potassium 25 mg TAKE ONE TABLET BY MOUTH DAILY AT 9 AM; Duration: 90 Active Vitamin D (Ergocalciferol) 1.25 MG (81763 UT) TAKE 1 CAPSULE BY MOUTH EVERY TUESDAY AT 9AM ONE TIME A WEEK; Duration: 88 Active Calcitriol 0.25 mcg TAKE ONE CAPSULE BY MOUTH ONCE DAILY; Duration: 90 Active Social History Sex Assigned At : Social History Observation Description Sex Assigned At Female Problems Problem Type SNOMED Code ICD Code Onset Dates Problem Status W/U Status Risk Notes Problem Hyperglycemia due to type 2 diabetes mellitus (838166898858651) Type 2 diabetes mellitus with hyperglycemia (E11.65) Active confirmed Problem Vitamin D deficiency (24235187) Vitamin D deficiency, unspecified (E55.9) Active confirmed Problem Essential hypertension (25560452) Essential (primary) hypertension (I10) Active confirmed Problem Heart failure (87440139) Heart failure, unspecified (I50.9) Active confirmed Problem Chronic kidney disease stage 2 (487315867) Chronic kidney disease, stage 2 (mild) (N18.2) Active confirmed Problem Chronic kidney disease stage 3 (disorder) (244032852) Chronic kidney disease, stage 3 unspecified (N18.30) Active confirmed Problem Chronic kidney disease stage 3B (disorder) (923419399) Chronic kidney disease, stage 3b (N18.32) Active confirmed Encounters Encounter Location Date Provider Diagnosis [facility] [place] [facility] [address] [place] [address] 07/31/2024 Carlos Osborn [facility] [place] [facility] [address] [place] [address] 07/31/2024 Carlos Osborn [place] [facility] 2043 [facility] 15 [place] [address] 11/23/2024 Carlos Osborn Plan Of Treatment Next Appt Details Provider Name:Carlos Osborn , 02/06/2025 04:30:00 PM, 2043 [facility], [facility], [place], [address],
--- OUTSIDE RECORDS SUMMARY | 2025-01-31 14:04 | XMS_ITS | Clinical Summary ---
Author Organization [facility] Address [address] [facility], [place] [address] Phone Care Team Providers Care Snubber Name Role Phone Renzo Castañeda APRN, CURB WORKER Primary Care Provider + Allergies No known [...] 2015 Zoster Immunization (1 of 2) 2015 Influenza Immunization (#1) 2024 04/11/2014 SARS-COV-2 Immunization (1 - season) 2024 Respiratory Syncytial Virus (RSV) Immunization (Adult) (1 [...] patient's age to complete this topic [place] [address] [place] [address] Care Teams Snubber Relationship Specialty Start Date End Date Renzo Castañeda, MANAGER SOCIAL SERVICES, CURB WORKER [address] [place] [address] [address] [place] [address] PCP - General Internal Medicine 09/22/18
--- OUTSIDE RECORDS SUMMARY | 2025-01-31 14:04 | XMS_ITS | Clinical Summary ---
Author Organization [facility] Address [address] [place] [address] Care Team Providers Care Rail Switch Operator Name Role Phone Ronnell Smith MD Primary Care Provider [phone] Allergies No known active allergies Medications albuterol HFA (PROVENTIL HFA,VENTOLIN HFA,PROAIR HFA) 90 mcg/actuation inhaler albuterol sulfate HFA 90 mcg/actuation aerosol inhaler INHALE 2 PUFFS BY MOUTH EVERY 4 HOURS Active atorvastatin (LIPITOR) 20 mg tablet Take 20 mg by mouth daily with dinner 0 Active OneTouch Verio test strips strip USE TO TEST BS BID 0 Active blood-glucose meter (OneTouch Verio Meter) [facility] OneTouch Verio Meter USE TO TEST BS ONCE DAILY Active lancets 33 gauge [facility] OneTouch Delica Plus Lancet 33 gauge USE [...] Diagnosed Date Coronary artery disease invo lving [place] heart without angina pectoris 05/26/2020 Overview (05/26/2020): Added automatically from request for surgery [id number] Lightheadedness 01/10/2020 Assessment & Plan (02/11/2020 9:22 AM DIRECTOR OF PUBLIC SAFETY): Patient has undergone MRA brain which demonstrates [...] 01/10/2020 Assessment & Plan (02/11/2020 9:21 AM DIRECTOR OF PUBLIC SAFETY): Patient describes continued episodic headaches with clear [...] 01/10/2020 Assessment & Plan (02/11/2020 9:21 AM DIRECTOR OF PUBLIC SAFETY): Patient has history of peripheral neuropathy in [...] effusion on right Type 2 diabetes mellitus Anemia Arthritis Family History Medical History Relation [...] Yes Comments:3 cigarettes daily Social Connection and Isolation Panel Answer Date Recorded In a typical week, how many times do you talk on the phone with family, friends, or neighbors? More than three times a week 05/22/2020 How often do you get togethe r with friends or relatives? More than three times a week 05/22/2020 How often do you attend chur ch or voodoo services? Never 05/22/2020 Do you belong to any clubs o r organizations such as anabaptism groups, unions, fraternal or athletic groups, or [...] on file Legal Sex Female 1:13 AM DIRECTOR OF PUBLIC SAFETY Gender Identity Not on file Sexual Orientation Not on file Obstetrics History Para Term AB IAB SAB Ectopic Multiple Livin g Live Births 2 2 2 Date Outcome GA Total Labor Labor/3rd Weight Sex Type Anes PTL Lissett A1 [...] on file Medical Devices Implanted Type Area Woven Paper Hat Mender Device Identifier Shelf Expiration Date Model / Serial / Lot [employer] [id number] Solia S 53cm Steroid Elute Bipolar Active Fixation Endocardial - [id number] - [id number] Implanted:Qty: 1 on 06/06/2020 by Omero Osullivan MD at [facility] Lead [employer] [id number] 02/17/2022 [id number] / [id number] 90 / [employer] [id number] Solia S 45cm Bipolar Active Fixation Lead Pacing Steroid Eluting - [id number] - [id number] Implanted:Qty: 1 on 06/06/2020 by Omero Osullivan MD at [facility] Lead [employer] [id number] 02/17/2022 [id number] / [id number] 97 / [employer] [id number] Edora Promri 23p70g3.5mm Dual Chamber Rate Adaptive Unipolar Bipolar - [id number] - [id number] Implanted:Qty: 1 on 06/06/2020 by Omero Osullivan MD at [facility] Pacemaker [employer] [id number] 08/18/2021 [id number] / [id number] / [employer] [id number] Didier-Mcca rthy-Smith Imr Etlogix 28mm 3d Reduced Curvature - [id number] - [id number] Implanted:Qty: 1 on 06/02/2020 by Hosea Carreon MD at [facility] N/A: Heart [employer] 02/16/2025 [id number] / [id number] / Description:Mitral ring [employer] [id number] Ozzy soriano Physio 28mm Tricuspid Ring Annuloplasty Heart - [id number] - [id number] Implanted:Qty: 1 on 06/02/2020 by Hosea Carreon MD at [facility] N/A: Heart [employer] 02/04/2025 [id number] / [id number] / Description:Tricuspid ring Insurance [facility] MEDICARE ADVANTAGE [facility] Address: [facility] [address] [place] [address] IDPA IDPA [facility] MEDICARE ADVANTAGE [facility] Address: [address] [address] [place] [address] IDPA Advance Directives For more information, please contact: [phone] * Full Code (Latest Code Status on File) Date Activated Date Inactivated Comments 06/02/2020 4:51 PM 06/09/2020 10:02 PM * Full Code Date Activated Date Inactivated Comments 05/21/2020 3:35 PM 05/24/2020 6:03 PM Care Teams Rail Switch Operator Relationship Specialty Start Date End Date Ronnell Smith MD PCP - General Internal Medicine 02/11/20
[2025-01-31 14:14] LABS: Alanine Aminotransferase 11 U/L (6-35); Albumin Level 4.1 g/dL (3.5-5.1); Alkaline Phosphatase 82 U/L (38-126); Anion Gap 6 mmol/L (4-12); Aspartate Amino Transferase 25 U/L (14-36); Bilirubin,Total 0.5 mg/dL (0.2-1.3); Blood Urea Nitrogen 39 mg/dL (7-17); Calcium 8.7 mg/dL (8.4-10.2); Carbon Dioxide 24 mmol/L (22-30); Chloride 108 mmol/L (98-107); Estimated Glomerular Filt Rate 29; Glucose 134 mg/dL (65-110); Potassium 4.2 mmol/L (3.4-5.0); Sodium 138 mmol/L (137-145); Total Protein 7.4 g/dL (6.3-8.2); Uric Acid 8.2 mg/dL (2.5-7.5)
[2025-01-31 14:25] LABS: Parathyroid Intact 83.9 pg/mL (14.5-75.2)
[2025-01-31 15:24] LABS: Add Urine Microscopic? YES; Appearance Urine Cloudy (Clear); Glucose Urine UA 3+ mg/dL (Negative); Leukocyte Esterase Ur 1+ LEU/UL (Negative); Nitrate Urine Negative (Negative); Specific Grav Ur 1.019 (1.001-1.035)
[2025-01-31 15:59] LABS: Thyroid Stimulating Hormone 2.940 uIU/mL (0.465-4.680)
[2025-01-31 16:56] LABS: Total Protein Urine Random 363 mg/dL; Ur Ttl Prot Creatinine Ratio 5.36 mg/mg (0-0.20)
== END 2025-01-31 13:20 | disposition home or self-care (01) ==
PROVIDERS: PCP Internal Medicine Infectious Disease; Visit Provider Specialist
DX: E11.65 Type 2 diabetes mellitus with hyperglycemia (principal); N18.30 Chronic kidney disease, stage 3 unspecified; R94.6 Abnormal results of thyroid function studies; E21.3 Hyperparathyroidism, unspecified; E55.9 Vitamin D deficiency, unspecified; R35.0 Frequency of micturition
CPT/HCPCS: 36415; 80053; 81001; 82043; 82306; 82570; 83970; 84156; 84443; 84550; 85025; 85652; 87086

== ENCOUNTER 2025-02-26 17:05 | Emergency (ER) | payer MEDICARE, SELFPAY ==
--- OUTSIDE RECORDS SUMMARY | 2023-10-21 09:00 | XMS_ITS ---
Author Organization [facility] Address [address] [place] [address] Care Team Providers Care Aircraft Load Controller Name Role Phone Jarod Osbornjit Unavailable [phone] Social History Sex Assigned At : Social History Observation Description Sex Assigned At Female Problems Problem Type SNOMED Code ICD Code Onset Dates Problem Status W/U Status Risk Notes Problem Chronic kidney disease stage 3B (disorder) (457095330) Chronic kidney disease, stage 3b (N18.32) Active confirmed Encounters Encounter Location Date Provider Diagnosis [place] [facility] [address] [facility] 15 [place] [address] 10/21/2023 Carlos Osborn Chronic kidney disease, stage 3b N18.32 ; Essential (primary) hypertension I10 ; Type 2 diabetes mellitus with hyperglycemia E11.65 ; Heart failure, unspecified I50.9 and Vitamin D deficiency, unspecified E55.9 Assessments Encounter Date Diagnosis (ICD Code) Assessment Notes Treatment Notes Treatment Clinical Notes Section Notes 10/21/2023 Chronic kidney disease, stage 3b (ICD-10 - N18.32) 10/21/2023 Essential (primary) hypertension (ICD-10 - I10) 10/21/2023 Type 2 diabetes mellitus with hyperglycemia (ICD-10 - E11.65) 10/21/2023 Heart failure, unspecified (ICD-10 - I50.9) 10/21/2023 Vitamin D deficiency, unspecified (ICD-10 - E55.9) Plan Of Treatment Next Appt Details Provider Name:Carlos Osborn , 03/08/2025 02:45:00 PM, 2043 [facility], [facility], [place], [address], Progress Notes * CARMELO GUERRA:1965 (59 yo M)Acc No.[id number]:10/21/2023 Progress Notes Patient: NANDA GLORIA Provider: Tiny RUFF MD, F.A.C.P, F.A.S.N. :1965 A ge:58 Y S ex:Male Date:10/21/2023 Address:[address] [place], [place] [id number] Subjective: * Chief Complaints: * * Medical History: Objective: * Vitals: Assessment: * Assessment: 1. C hronic kidney disease, stage 3b - N18.32 2 . E ssential (primary) hypertension - I10 3 . T ype 2 diabetes mellitus with hyperglycemia - E11.65 ? 4 . H eart failure, unspecified - I50.9 5 . V itamin D deficiency, unspecified - E55.9 Plan: * Treatment: * Billing Information: * Visit Code: 08010 Office Visit, Est Pt., Level 4. * Procedure Codes: * Electronic signature of Anand Osborn MD on 02/26/2025 at 07:04 PM MAIL DISTRIBUTION SCHEME EXAMINER Sign off status: Pending * Provider: Tiny RUFF MD, F.A.C.P, F.A.S.N. Date: 0 10/21/2023 Generated for Printing/Faxing/eTransmitting on: 1 04/29/2024 07:04 PM MAIL DISTRIBUTION SCHEME EXAMINER
--- OUTSIDE RECORDS SUMMARY | 2023-11-25 09:00 | XMS_ITS ---
Author Organization [facility] Address [address] [address] [place] [address] Care Team Providers Care Primary Counselor Name Role Phone Anurag Carlos Unavailable [phone] Medications Medication SIG (Take, Route, Frequency, Duration) Notes Start Date End Date Status Escitalopram Oxalate 10 mg TAKE ONE TABL ET BY MOUTH DAILY AT 9 AM; Duration: 90 Active Vitamin D (Ergocalciferol) 1.25 MG (51087 UT) TAKE 1 CAPSULE BY MOUTH EVERY TUESDAY AT 9AM ONE TIME A WEEK; Duration: 88 Active Losartan Potassium 25 MG 1 tablet Orally Once a day; Duration: 90 day(s) 06/16/2022 Active Social History Sex Assigned At : Social History Observation Description Sex Assigned At Female Encounters Encounter Location Date Provider Diagnosis [place] [facility] [address] [facility] [address] [place] [address] 11/25/2023 Carlos Osborn Chronic kidney disease, stage [...] Appt Details Provider Name:Carlos Anurag , 03/08/2025 02:45:00 PM, [address] Katie Ybarra, [facility] [address], [place], [address], Progress Notes * SANJAY GUERRAB:1965 (59 yo M)Acc No.[id number]:11/25/2023 Progress Notes Patient: NANDA GLORIA Provider: Tiny RUFF MD, F.Phu.C.P, F.A.S.N. :1965 A ge:58 Y S ex:Male Date:11/25/2023 Address:[address] [place] [address] [id number] Subjective: * Chief Complaints: * * Medical History: * Medications: T aking Losartan Potassium 25 MG Tablet 1 tablet Orally Once a day , Taking Vitamin D (Ergocalciferol) 1.25 MG (70392 UT) Capsule TAKE 1 CAPSULE BY MOUTH [...] Treatment: * Billing Information: * Visit Code: 32438 Office Visit, Est Pt., Level 4. * Procedure Codes: * Electronic signature of Anand Osborn MD on 02/26/2025 at 07:05 PM REVENUE SETTLEMENTS ADMINISTRATOR Sign off status: Pending * Provider: Tiny RUFF MD, Tad.Phu.C.P, F.A.S.N. Date: 0 11/25/2023 Generated for Printing/Faxing/eTransmitting on: 1 04/29/2024 07:05 PM REVENUE SETTLEMENTS ADMINISTRATOR
--- OUTSIDE RECORDS SUMMARY | 2024-01-20 07:45 | XMS_ITS ---
Author Organization [facility] Address [address] [place] [address] [place] [address] Care Team Providers Care Cold Working Supervisor Name Role Phone Carlos Osborn Unavailable [phone] Medications Medication SIG (Take, Route, Frequency, Duration) [...] 90 Active Vitamin D (Ergocalciferol) 1.25 MG (21626 UT) TAKE 1 CAPSULE BY MOUTH EVERY TUESDAY AT 9AM ONE TIME A WEEK; Duration: 88 Active Losartan Potassium 25 MG 1 tablet Orally Once a day; Duration: 90 days 06/16/2022 Active Social History Sex Assigned At : Social History Observation Description Sex Assigned At Female Encounters Encounter Location Date Provider Diagnosis [place] [facility] 2043 [facility] 15 [place] [address] 01/20/2024 Carlos Osborn Essential (primary) hypertension I10 [...] Name:Carlos Anurag , 03/08/2025 02:45:00 PM, 2043 [facility], [facility] [address], [address], Progress Notes * MIGUELOCTAVIO NESSALFB:1965 (59 yo M)Acc No.[id number]:01/20/2024 Progress Notes Patient: NANDA GLORIA Provider: Tiny RUFF MD, F.A.C.P, F.A.S.N. :1965 A ge:58 Y S ex:Male Date:01/20/2024 Address:[address] [place], [place] [id number] Subjective: * Chief Complaints: * * Medical History: * Medications: T aking Losartan Potassium 25 MG Tablet 1 tablet Orally Once a day , Taking Allopurinol 200 MG Tablet 1 tablet Orally Once a day , stop date 11/19/2024, Taking Calcitriol 0.25 MCG Capsule 1 capsule Orally Once a day , stop date 11/19/2024, Taking Vitamin D (Ergocalciferol) 1.25 MG (63470 UT) Capsule TAKE 1 CAPSULE BY MOUTH [...] Treatment: * Billing Information: * Visit Code: 66335 Office Visit, Est Pt., Level 4. * Procedure Codes: * Electronic signature of Anand Osborn MD on 02/26/2025 at 07:06 PM STATIONARY ENGINEER Sign off status: Pending * Provider: Tiny RUFF MD, F.A.C.P, F.A.S.N. Date: 03/21/2023 Generated for Printing/Faxing/eTransmitting on: 04/29/2024 07:06 PM STATIONARY ENGINEER
--- OUTSIDE RECORDS SUMMARY | 2024-03-30 08:30 | XMS_ITS ---
Author Organization [facility] Address 1400 [facility], [facility] 61 [facility] [address] [place] [address] Care Team Providers Care Bb Shot Packer Name Role Phone Anurag Carlos Unavailable [phone] Social History Sex Assigned At : Social History Observation Description Sex Assigned At Female Encounters Encounter Location Date Provider Diagnosis [place] [facility] 2043 [facility] 15 [place] [address] 03/30/2024 Carlos Osborn Plan Of Treatment Next Appt Details Provider Name:Carlos Osborn , 03/08/2025 02:45:00 PM, 2043 [facility] 15, [place], [address], Progress Notes * SANJAY GUERRAB:1965 (59 yo M)Acc No.[id number]:03/30/2024 Progress Notes Patient: NANDA GLORIA Provider: Tiny RUFF MD, AryaC.P, F.A.S.N. :1965 A ge:59 Y S ex:Male Date:03/30/2024 Address:[address] [place], [place] [phone] Subjective: * Chief Complaints: * * Medical History: Objective: * Vitals: Assessment: Plan: * Treatment: * Billing Information: * Visit Code: * Procedure Codes: * Electronic signature of Anand Osborn MD on 02/26/2025 at 07:05 PM RESEARCH BIOSTATISTICIAN Sign off status: Pending * Provider: Tiny RUFF MD, Tad.Phu.C.P, F.A.S.N. Date: 0 03/30/2024 Generated for Printing/Tristen/Chidiitting on: 1 04/29/2024 07:05 PM RESEARCH BIOSTATISTICIAN
--- OUTSIDE RECORDS SUMMARY | 2025-02-06 10:30 | XMS_ITS ---
Author Organization [facility] Address [address] [address] [place] [address] Care Team Providers Care Applied Behavior Science Specialist Name Role Phone Carlos Osborn Unavailable [phone] REASON FOR VISIT suresh Social History Sex Assigned At : Social History Observation Description Sex Assigned At Female Problems Problem Type SNOMED Code ICD Code Onset Dates Problem Status W/U Status Risk Notes Problem Metabolic disorder (57499880) Metabolic disorder, unspecified (E88.9) Active confirmed Problem Tobacco use (902422118) Tobacco use (Z72.0) Active confirmed Problem Amputated below knee (872206847) 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) Active confirmed Problem Sick sinus syndrome (63901606) Sick sinus syndrome (I49.5) Active confirmed Problem Cardiac pacemaker in situ (855911639) Presence of cardiac pacemaker (Z95.0) Active confirmed Problem Premature rupture of membranes (85636862) premature rupture of membranes, unspecified as to length of time between rupture and onset of labor, unspecified trimester (O42.919) Active confirmed Encounters Encounter Location Date Provider Diagnosis [place] [facility] 2043 [facility] 15 [place] [address] 02/06/2025 Carlos Osborn Chronic kidney disease, stage 3b N18.32 ; Essential (primary) hypertension I10 ; Heart failure, unspecified I50.9 ; Type 2 diabetes mellitus with hyperglycemia E11.65 ; Vitamin D deficiency, unspecified E55.9 ; Metabolic disorder, unspecified E88.9 ; Tobacco use Z72.0 ; Acquired absence of right leg below knee Z89.511 ; Sick sinus syndrome I49.5 and Presence of cardiac pacemaker Z95.0 Assessments Encounter Date Diagnosis (ICD Code) Assessment Notes Treatment Notes Treatment Clinical Notes Section Notes 02/06/2025 Chronic kidney disease, stage 3b (ICD-10 - N18.32) 02/06/2025 Essential (primary) hypertension (ICD-10 - I10) 02/06/2025 Heart failure, unspecified (ICD-10 - I50.9) 02/06/2025 Type 2 diabetes mellitus with hyperglycemia (ICD-10 - E11.65) 02/06/2025 Vitamin D deficiency, unspecified (ICD-10 - E55.9) 02/06/2025 Metabolic disorder, unspecified (ICD-10 - E88.9) 02/06/2025 Tobacco use (ICD-10 - Z72.0) 02/06/2025 Acquired absence of right leg below knee (ICD-10 - Z89.511) 02/06/2025 Sick sinus syndrome (ICD-10 - I49.5) 02/06/2025 Presence of cardiac pacemaker (ICD-10 - Z95.0) Plan Of Treatment Next Appt Details Provider Name:Carlos Osborn , 03/08/2025 02:45:00 PM, 2043 [facility] [address], [address], Progress Notes * SANJAY GUERRAB:1965 (59 yo M)Acc No.[id number]:02/06/2025 Progress Notes Patient: NANDA GLORIA Provider: Tiny RUFF MD, F.A.C.P, F.A.S.N. :1965 A ge:59 Y S ex:Male Date:02/06/2025 Address:[address] [place], [place] [id number] Subjective: * Chief Complaints: * 1 . Suresh. * Medical History: Objective: * Vitals: Assessment: * Assessment: 1. C hronic kidney disease, stage 3b - N18.32 2 . E ssential (primary) hypertension - I10 3 . H eart failure, unspecified - I50.9 4 . T ype 2 diabetes mellitus with hyperglycemia - E11.65 5 . V itamin D deficiency, unspecified - E55.9 6 . M etabolic disorder, unspecified - E88.9 ?7. T obacco use - Z72.0 8 . A cquired absence of right leg below knee - Z89.511 9 . S ick sinus syndrome - I49.5 1 0. P resence of cardiac pacemaker - Z95.0 Plan: * Treatment: * Billing Information: * Visit Code: 30320 Office Visit, New Pt., Level 5. * Procedure Codes: * Electronic signature of Anand Osborn MD on 02/26/2025 at 07:05 PM SCRIPT SUPERVISOR Sign off status: Pending * Provider: Tiny RUFF MD, F.A.C.P, F.A.S.N. Date: 04/08/2024 Generated for Printing/Faxing/eTransmitting on: 04/29/2024 07:05 PM SCRIPT SUPERVISOR
--- OUTSIDE RECORDS SUMMARY | 2025-02-22 13:30 | XMS_ITS ---
Author Organization [facility] Address [address] [facility] [address] [facility] [address] [place] [address] Care Team Providers Care Pattern Filer Name Role Phone Anurag Carlos Unavailable [phone] Social History Sex Assigned At : Social History Observation Description Sex Assigned At Female Encounters Encounter Location Date Provider Diagnosis [place] [facility] 2043 [place] [address] 02/22/2025 Carlos Osborn Plan Of Treatment Next Appt Details Provider Name:Carlos Osborn , 03/08/2025 02:45:00 PM, [address], [address], Progress Notes * SANJAY GUERRAB:1965 (59 yo M)Acc No.[id number]:02/22/2025 Progress Notes Patient: NNADA GLORIA Provider: Tiny RUFF MD, Tad.Phu.C.P, F.A.S.N. :1965 A ge:59 Y S ex:Male Date:02/22/2025 Address:[address] [place], [place] [id number] Subjective: * Chief Complaints: Objective: Assessment: Plan: * Billing Information: * Visit Code: * Procedure Codes: * Electronic signature of Anand Osborn MD on 02/26/2025 at 07:05 PM SALES SPECIAL AGENT Sign off status: Pending * Provider: Tiny RUFF MD, Tad.Phu.C.P, F.A.S.N. Date: 04/25/2024 Generated for Printing/Faxing/eTransmitting on: 1 04/29/2024 07:05 PM SALES SPECIAL AGENT
--- NOTE | ~2025-02-26 | XR_ITS ---
EXAMINATION: XR shoulder RT min 2V DATE: 02/26/2025 18:10 INDICATION: Trauma due to fall. TECHNIQUE: 3 views of right shoulder and proximal humerus were obtained. COMPARISON: None. FINDINGS: Osteopenic bones. Acute impacted fracture of the neck of the humerus right shoulder. IMPRESSION: 1. Acute impacted fracture of the neck of the humerus at the right shoulder. Osteopenic bones. Please correlate with DEXA densitometry. Incidentally noted is suggestion of 1.5 cm nodule in the mid right lung field probable central calcification. Elective further evaluation recommended. Reviewed, dictated and finalized at location T. ENGINEER IMPRESSION: 1. Acute impacted fracture of the neck of the humerus at the right shoulder. Os teopenic bones. Please correlate with DEXA densitometry. Incidentally noted is suggestion of 1.5 cm nodule in the mid right lung field p robable central calcification. Elective further evaluation recommended.
[2025-02-26 17:45] VITALS: BP 130/84; PULSE 77; RESP 18; TEMP 36.3; O2SAT 100
--- NOTE | 2025-02-26 18:02 | ED_ITS ---
HPI - Extremity Injury (Upper) General Chief Complaint: Extremity Injury, Upper <Emmanuelle Rose PA-C - Last Filed: 02/26/25 18:03> Stated Complaint: shoulder pain <Emmanuelle Rose PA-C - Last Filed: 02/26/25 18:03> Time Seen by Provider: 02/26/25 18:00 <BARBARA Rueda Last Filed: 02/26/25 18:03> Focused HPI: Patient to female who presents the ED via EMS with report of right shoulder pain. Patient reports she was transferring from her bedside commode back to bed when she rolled off the bed and landed directly on her right shoulder. She did not hit her head or lose consciousness. Complains of pain to her right shoulder. Limited range of motion. EMS was called. EMS place maria eugenia hernandez in an arm sling. She denies any other areas of pain. Denies elbow pain. Denies numbness, tingling. GENERAL: Well-appearing, well-nourished, and in no acute distress. HEAD: Normocephalic, atraumatic. CHEST: Clear to auscultation. ?No respiratory distress. HEART: Regular rate and rhythm.? MSK: Fullness throughout right anterior shoulder, fraction versus dislocation deformity. Focal tenderness to palpation. Sensation intact throughout right upper extremity. No bony tenderness throughout right elbow or right wrist joint. Radial pulses intact. NEURO: ?Alert and oriented x3. Patient screened in triage and initial orders placed.? ?Additional care and disposition to be based upon?diagnostic testing and treatment. <Emmanuelle Rose PA-C - Last Filed: 02/26/25 18:03> Source: patient <Emmanuelle Rose PA-C - Last Filed: 02/26/25 18:03> Mode of arrival: EMS <Emmanuelle Rose PA-C - Last Filed: 02/26/25 18:03> Limitations: no limitations <BARBARA Rueda Last Filed: 02/26/25 18:03> History of Present Illness HPI narrative: per HPI <Lynne Alvarado MD - Last Filed: 02/26/25 19:48> Related Data Allergies/Adverse Reactions: Allergies Allergy/AdvReac Type Severity Reaction Status Date / Time No Known Allergies Allergy Verified 02/26/25 17:12 <Emmanuelle Rose PA-C - Last Filed: 02/26/25 18:03> Review of Systems Review of Systems: All systems reviewed & are unremarkable except as noted in HPI and below <Lynne Alvarado MD - Last Filed: 02/26/25 19:48> Exam Narrative: EXAMINATION OF ORGAN SYSTEMS/BODY AREAS: Constitutional: Vital signs per nursing GENERAL:No acute distress, non-toxic appearing. HEAD: Normal with no signs of head trauma. EYES: EOMI, conjunctiva normal ENT: Hearing grossly intact LUNGS: Nonlabored breathing. HEART: Normal radial pulse on right ABD: No distension EXT: Tenderness to the right upper humerus SKIN: Bruising to the right upper humerus NEURO: Alert. No gross focal sensory or strength deficits. PSYCH: Normal affect <Lynne Alvarado MD - Last Filed: 02/26/25 19:48> Course Vital Signs Vital signs: Vital Signs Temperature 97.4 F L 02/26/25 17:45 Pulse Rate 77 02/26/25 17:45 Respiratory Rate 18 02/26/25 17:45 Blood Pressure 130/84 02/26/25 17:45 Pulse Oximetry 100 02/26/25 17:45 Oxygen Delivery Room Air 02/26/25 17:45 Temperature 98.3 F 02/26/25 19:20 Pulse Rate 78 02/26/25 19:20 Respiratory Rate 20 02/26/25 19:20 Blood Pressure 133/92 H 02/26/25 19:20 Pulse Oximetry 98 02/26/25 19:20 Oxygen Delivery Room Air 02/26/25 17:45 <Emmanuelle Rose PA-C - Last Filed: 02/26/25 18:03> Vital Signs Temperature 97.4 F L 02/26/25 17:45 Pulse Rate 77 02/26/25 17:45 Respiratory Rate 18 02/26/25 17:45 Blood Pressure 130/84 02/26/25 17:45 Pulse Oximetry 100 02/26/25 17:45 Oxygen Delivery Room Air 02/26/25 17:45 Temperature 98.3 F 02/26/25 19:20 Pulse Rate 78 02/26/25 19:20 Respiratory Rate 20 02/26/25 19:20 Blood Pressure 133/92 H 02/26/25 19:20 Pulse Oximetry 98 02/26/25 19:20 Oxygen Delivery Room Air 02/26/25 17:45 <Lynne Alvarado MD - Last Filed: 02/26/25 19:48> [facility] MDM Narrative Medical decision making narrative: MSE by SURYA in triage <Emmanuelle Rose PA-C - Last Filed: 02/26/25 18:03> MSE by SURYA in triage Patient presents after falling out of her bed and landing on her right shoulder, denies hitting her head or anything else. Pain to right shoulder. She is neurovascularly intact, does have bruising and tenderness have right upper humerus, x-ray unfortunately does show proximal humerus fracture. Given pain medication here, she tolerating the pain well, agreeable to outpatient management with orthopedist and return precautions. <Lynne Alvarado MD - Last Filed: 02/26/25 19:48> Differential Diagnosis Differential Diagnosis: Fracture, sprain, contusion <Lynne Alvarado MD - Last Filed: 02/26/25 19:48> Imaging Data Radiologist's impression: ITS Impressions Shoulder X-Ray 02/26/25 18:13 IMPRESSION: 1. Acute impacted fracture of the neck of the humerus at the right shoulder. Osteopenic bones. Please correlate with DEXA densitometry. Incidentally noted is suggestion of 1.5 cm nodule in the mid right lung field probable central calcification. Elective further evaluation recommended. <Emmanuelle Rose PA-C - Last Filed: 02/26/25 18:03> ITS Impressions Shoulder X-Ray 02/26/25 18:13 IMPRESSION: 1. Acute impacted fracture of the neck of the humerus at the right shoulder. Osteopenic bones. Please correlate with DEXA densitometry. Incidentally noted is suggestion of 1.5 cm nodule in the mid right lung field probable central calcification. Elective further evaluation recommended. <Lynne Alvarado MD - Last Filed: 02/26/25 19:48> Discharge Plan Discharge Clinical Impression: Fracture, humerus <Emmanuelle Rose PA-C - Last Filed: 02/26/25 18:03> Patient Disposition: Home <Emmanuelle Rose PA-C - Last Filed: 02/26/25 18:03> Condition: Stable <BARBARA Rueda Last Filed: 02/26/25 18:03> Instructions: Arm Fracture in Adults (ED), How to Use a Sling (ED) <BARBARA Rueda Last Filed: 02/26/25 18:03> Additional Instructions: You can take the medications as prescribed, and follow up with the orthopedic surgeon. If your pain worsens or anything else concerning, please come back to the emergency room. <Emmanuelle Rose PA-C - Last Filed: 02/26/25 18:03> Patient Language: Maltese <BARBARA Rueda Last Filed: 02/26/25 18:03> Prescriptions: New methocarbamol 750 mg tablet 750 mg PO TID PRN (Reason: muscle spasm) Qty: 30 0RF oxycodone 5 mg tablet 5 mg PO Q8H PRN (Reason: pain) Qty: 14 0RF <Emmanuelle Rose PA-C - Last Filed: 02/26/25 18:03> Follow-up/Referrals: Leena,Christina Gross [Primary Care Provider] Roberto Mays MD [Physician, Orthopedics] - 3 Days <BARBARA Rueda Last Filed: 02/26/25 18:03>
--- OUTSIDE RECORDS SUMMARY | 2025-02-26 19:05 | XMS_ITS | Patient Health Record ---
Author Organization [facility] Address [address] [facility] [address] [place] [address] Care Team Providers Care Occupational Health And Safety Adviser Name Role Phone Carlos Osborn Unavailable [phone] Reason For Referral No Information Medications Medication SIG (Take, Route, Frequency, Duration) Notes Start Date End Date Status Escitalopram Oxalate 10 mg TAKE ONE TABL ET BY MOUTH DAILY AT 9 AM; Duration: 90 Active Losartan Potassium 25 mg TAKE ONE TABLET BY MOUTH DAILY AT 9 AM; Duration: 90 Active Calcitriol 0.25 mcg TAKE ONE CAPSULE BY MOUTH ONCE DAILY orally daily; Duration: 90 days Active Vitamin D (Ergocalciferol) 1.25 MG (18675 UT) TAKE 1 CAPSULE BY MOUTH EVERY TUESDAY AT 9AM ONE TIME A WEEK Orally daily; Duration: 90 days Active Social History Sex Assigned At : Social History Observation Description Sex Assigned At Female Problems Problem Type SNOMED Code ICD Code Onset Dates Problem Status W/U Status Risk Notes Problem Hyperglycemia due to type 2 diabetes mellitus (685491134484936) Type 2 diabetes mellitus with hyperglycemia (E11.65) Active confirmed Problem Vitamin D deficiency (91212625) Vitamin D deficiency, unspecified (E55.9) Active confirmed Problem Metabolic disorder (32197004) Metabolic disorder, unspecified (E88.9) Active confirmed Problem Essential hypertension (82148438) Essential (primary) hypertension (I10) Active confirmed Problem Sick sinus syndrome (58125053) Sick sinus syndrome (I49.5) Active confirmed Problem Heart failure (27595156) Heart failure, unspecified (I50.9) Active confirmed Problem Premature rupture of membranes (15146777) premature rupture of membranes, unspecified as to length of time between rupture and onset of labor, unspecified trimester (O42.919) Active confirmed Problem Tobacco use (289494206) Tobacco use (Z72.0) Active confirmed Problem Amputated below knee (474009666) 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) Active confirmed Problem Cardiac pacemaker in situ (178110758) Presence of cardiac pacemaker (Z95.0) Active confirmed Problem Chronic kidney disease stage 3B (disorder) (346651005) Chronic kidney disease, stage 3b (N18.32) Active confirmed Encounters Encounter Location Date Provider Diagnosis [facility] [address] [place] [address] 02/06/2025 Carlos Osborn Chronic kidney disease, stage 3b N18.32 ; Essential (primary) hypertension I10 ; Heart failure, unspecified I50.9 ; Type 2 diabetes mellitus with hyperglycemia E11.65 ; Vitamin D deficiency, unspecified E55.9 ; Metabolic disorder, unspecified E88.9 ; Tobacco use Z72.0 ; Acquired absence of right leg below knee Z89.511 ; Sick sinus syndrome I49.5 and Presence of cardiac pacemaker Z95.0 [facility] [place] [facility] [address] [place] [address] 07/31/2024 Carlos Osborn [facility] [place] [facility] [address] [place] [address] 07/31/2024 Carlos [facility] [address] [place] [address] 11/23/2024 Carlos [facility] [address] [address] 02/06/2025 Carlos Osborn Assessments Encounter Date Diagnosis (ICD [...] Name:Carlos Osborn , 03/08/2025 02:45:00 PM, [address] [facility], [facility], [place], [address],
--- OUTSIDE RECORDS SUMMARY | 2025-02-26 19:05 | XMS_ITS | Clinical Summary ---
Author Organization [facility] Address [address] [facility] [place] [address] Phone Care Team Providers Care Commodity Specialist Name Role Phone Renzo Castañeda APRN, TEACHER ASSISTANT Primary Care Provider + Allergies No known [...] patient's age to complete this topic Insurance [place] [address] Care Teams Commodity Specialist Relationship Specialty Start Date End Date Renzo Castañeda, DOLL DRESSER, TEACHER ASSISTANT [address] [place] [address] [address] [place] [address] PCP - General Internal Medicine 09/22/18
[2025-02-26 19:20] VITALS: BP 133/92; PULSE 78; RESP 20; TEMP 36.8; O2SAT 98
[2025-02-26] MEDS: HYDROcodone/acetaminophen (*CRX) 5-325 MG TABLET 1 TAB PO (19:23)
--- OUTSIDE RECORDS SUMMARY | 2025-02-26 19:28 | XMS_ITS | Clinical Summary ---
Author Organization [facility] Address [address] [place] [address] Care Team Providers Care Tube Mill Operator Name Role Phone Ronnell Smith MD Primary Care Provider [phone] Social History Tobacco Use Types Packs/Day Years [...] patient's age to complete this topic Insurance [facility] Care Teams Tube Mill Operator Relationship Specialty Start Date End Date Ronnell Smith MD PCP - General INTERNAL MEDICINE 11/29/19
--- OUTSIDE RECORDS SUMMARY | 2025-02-26 19:28 | XMS_ITS | Data Portability ---
Author Organization [facility] [employer], Main Office Address [address] [place] [address] Assessment No assessment recorded. Plan of Treatment Reminders Order Date Submit Date Provider Last Modified By Organization Details Last Modified Time Details Appointments None record ed. Lab None record ed. Referral None record ed. Procedures None record ed. Surgeries None record ed. Imaging None record ed. Medication Orders None record ed. Patient TargetsNo targets recorded. Patient InstructionsNo instructions recorded. Reason for Referral None Reported. Results Created Date Observation Date Name Description Value Unit Range Abnormal Flag Note LastModifiedBy Organization Detail LastModifiedTime 01/26/2001/25/2023 US, duple x, arter ial, lower extre mity No observ ation record ed. [email or web address] [facility] [address], [place], [address], 01/25/2023 15:30:09 01/27/2001/25/2023 vascu lar exami natio n (PROC ) No observ ation record ed. [email or web address] [facility] [address], [place], [address], 01/26/2023 14:12:55 Result Notes None recorded. Problems Name Problem SNOMED Code Status Onset Date Resolution Date Notes Provider Name and Address Organization Details Recorded Time Amputated below knee 336702810 Active Not Available [facility] 3 11:14:13 Vertigo 955799816 Active Not Available [facility] 11:14:13 Infection of tooth 376666719 Active Not Available [facility] 3 11:14:14 Uncontrol led type 2 diabetes mellitus 294632983 Active Not Available [facility] 3 11:14:14 Tobacco user 234236300 Active 2018 Not Available [facility] 3 11:14:13 Pain in left knee Active 2018 Not Available [facility] 3 11:14:13 Computed tomograph y result abnormal 488919196 Active 2018 Not Available [facility] 3 11:14:13 Vitamin D deficienc y 31926497 Active 2018 Not Available [facility] 3 11:14:13 History of tricuspid valve repair 02902916839 9104 Active 2020 Not Available [facility] 3 11:14:13 History of coronary artery bypass grafting 791370393 Active 2020 Not Available [facility] 3 11:14:13 Congestiv e heart failure 16387016 Active 2020 Not Available [facility] 3 11:14:13 History of repair of mitral valve 417748869 Active 2020 Not Available [facility] 3 11:14:14 Cardiac pacemaker in situ 822763870 Active 2020 Not Available [facility] 3 11:14:14 Nicotine dependenc e 30753686 Active 2020 Not Available [facility] 3 11:14:14 Pressure injury of heel 206532457 Completed 202103/26/2021 Not Available [facility] 3 22:23:42 Periphera l arterial occlusive disease 855794697 Active 2021 Not Available [facility] 3 11:14:13 Diabetic periphera l neuropath y 618895413 Active 2021 Not Available [facility] 3 11:14:14 Smoker 62258804 Active 2021 Not Available [facility] 3 11:14:14 Open wound of foot 604622747 Active 2021 Not Available [facility] 3 11:14:13 Open wound of foot 020392978 Active 2021 Not Available [facility] 3 11:14:13 Cigarette smoker 73580867 Active 2021 Not Available [facility] 3 11:14:14 Open wound of toe 590221003 Active 2022 Not Available [facility] 3 11:14:13 Foot callus 222536185 Active 2022 Not Available [facility] 3 11:14:13 Well controlle d type 2 diabetes mellitus 422833305 Active 2022 Not Available [facility] 3 11:14:14 Mixed hyperlipi demia 404229354 Active 2022 Not Available [facility] 3 11:14:13 Problem Notes None recorded. Procedures Surgical History Date Name Laterality Status Provider Name and Address Organization Details Recorded Time Stent Placement completed Not Available [facility] 22:22:49 ligation of bilateral fallopian tubes completed Not Available [facility] 05/19/2022 22:22:49 Lung Surgery completed [facility] Available [facility] 22:22:49 Imaging Results None recorded. Procedure Notes None recorded. Medical Equipment None Reported. Medications Name Sig Start Date Stop Date Status Note LastModified by Organization Details LastModified Time Santyl 250 unit/gram topical ointment APPLY TO CLEANSED AFFECTED AREA BY TOPICAL ROUTE ONCE DAILY 05/07 completed Not Available Not Available Not Available furosemide 40 mg tablet TAKE 1 TABLET BY MOUTH EVERY DAY DIRECTED active Not Available Not Available No t Available silver sulfadiazin e 1 % topical cream APPLY A 1/16 INCH (1.5 MM) THICK LAYER TO ENTIRE wound AREA BY TOPICAL ROUTE 2 TIMES PER DAY 05/07 completed Not Available Not Available Not Available metformin 500 mg tablet Take 1 tablet every day by oral route for 30 days. 11/01 completed Not Available Not Available Not Available carvedilol 6.25 mg tablet TAKE 1 TABLET BY MOUTH TWICE DAILY active Not Available Not Available No t Available atorvastati n 20 mg tablet TAKE 1 TABLET BY MOUTH EVERY DAY active Not Available Not Available No t Available atorvastati n 10 mg tablet 09/29 completed Not Available Not Available Not Available azithromyci n 250 mg tablet TAKE 2 TABLETS (500 MG) BY ORAL ROUTE ONCE DAILY FOR 1 DAY THEN 1 TABLET (250 MG) BY ORAL ROUTE ONCE DAILY FOR 4 DAYS active Not Available Not Available No t Available amiodarone 200 mg tablet TAKE 1 TABLET BY MOUTH EVERY DAY 05/07 completed Not Available Not Available Not Available cephalexin 250 mg capsule 09/29 completed Not Available Not Available Not Available hydrocodone 5 mg-acetamin ophen 325 mg tablet 09/29 completed Not Available Not Available Not Available ondansetron HCl 4 mg tablet 09/18 completed Not Available Not Available Not Available clindamycin HCl 150 mg capsule TAKE 1 CAPSULE BY MOUTH THREE TIMES A DAY FOR 14 DAYS 03/26 completed Not Available Not Available Not Available clopidogrel 75 mg tablet TAKE 1 TABLET BY MOUTH EVERY DAY active Not Available Not Available No t Available ciprofloxac in 250 mg tablet Take 1 tablet every 12 hours by oral route as directed for 10 days. 09/29 completed Not Available Not Available Not Available levofloxaci n 250 mg tablet TAKE 1 TAB PO Q 12 HRS DIRECTED FOR 10DAYS 05/07 completed Not Available Not Available Not Available ciprofloxac in 500 mg tablet 09/18 completed Not Available Not Available Not Available sulfamethox azole 800 mg-trimetho prim 160 mg tablet TAKE 1 TABLET BY MOUTH EVERY 12 HOURS FOR 7 DAYS DIRECTED 05/07 completed Not Available Not Available Not Available aspirin 81 mg tablet,elke yed release Take 1 tablet every day by oral route as directed for 90 days. 2020 active Not Available Not Available Not Avai lable tramadol 50 mg tablet TAKE 1 TABLET BY MOUTH EVERY 6 HOURS NEEDED FOR PAIN 09/29 completed Not Available Not Available Not Available spironolact one 25 mg tablet TAKE 1/2 (ONE HALF) TABLET BY MOUTH ONCE DAILY 09/25 completed Not Available Not Available Not Available glimepiride 2 mg tablet TAKE up to 1 TABLET BY MOUTH TWICE DAILY WITH FOOD active Not Available Not Available No t Available carvedilol 3.125 mg tablet TAKE 1 TABLET BY MOUTH TWICE DAILY. HOLD FOR SYSTOLIC BLOOD PRESSURE LESS THAN 110 OR HEART RATE LESS THAN 60. 09/29 completed Not Available Not Available Not Available glimepiride 1 mg tablet TAKE 1 TABLET BY MOUTH EVERY DAY WITH MEALS 09/29 completed Not Available Not Available Not Available meloxicam 7.5 mg tablet TAKE 1 TABLET BY MOUTH TWICE DAILY 05/07 completed Not Available Not Available Not Available ofloxacin 0.3 % ear drops INSTILL 10 DROPS (1.5 MG) INTO AFFECTED EAR(S) BY OTIC ROUTE 2 TIMES PER DAY (Right ear for 10 days) 09/18 completed Not Available Not Available Not Available potassium chloride ER 20 mEq tablet,exte nded release(par t/cryst) TAKE 1 TABLET BY MOUTH EVERY DAY 05/07 completed Not Available Not Available Not Available prednisolon e acetate 1 % eye drops,suspe nsion 09/04 completed Not Available Not Available Not Available magnesium oxide 400 mg (241.3 mg magnesium) tablet TAKE 1 TABLET BY MOUTH EVERY DAY 09/25 completed Not Available Not Available Not Available meclizine 25 mg tablet Take 1 tablet 3 times a day by oral route as needed for 15 days. 09/25 completed Not Available Not Available Not Available cephalexin 500 mg capsule TAKE 1 CAPSULE BY MOUTH EVERY 6 HOURS FOR 7 DAYS DIRECTED 09/29 completed Not Available Not Available Not Available metformin 1,000 mg tablet Take 1 tablet twice a day by oral route. 10/03 completed Not Available Not Available Not Available glimepiride 4 mg tablet TAKE 1/2 TO 1 TABLET BY MOUTH TWICE DAILY DEPENDING ON PREMEAL SUGARS active Not Available Not Available No t Available losartan 25 mg tablet TAKE 1 TABLET BY MOUTH EVERY DAY 09/25 completed Not Available Not Available Not Available gentamicin 0.1 % topical cream APPLY A SMALL AMOUNT TO THE AFFECTED AREA of heel ulcer BY TOPICAL ROUTE 3 TIMES PER DAY active Not Available Not Available No t Available mupirocin 2 % topical ointment APPLY A SMALL AMOUNT TO THE AFFECTED AREA OF Heel ULCER BY TOPICAL ROUTE 3 TIMES PER DAY active Not Available Not Available No t Available furosemide 20 mg tablet TAKE 1 TABLET BY MOUTH EVERY DAY active Not Available Not Available No t Available gabapentin 100 mg capsule TAKE 1 CAPSULE BY MOUTH THREE TIMES DAILY 05/07 completed Not Available Not Available Not Available ergocalcife rol (vitamin D2) 1,250 mcg (50,000 unit) capsule TAKE 1 CAPSULE BY MOUTH EVERY WEEK 2021 active Not Available Not Available Not Avai lable albuterol sulfate HFA 90 mcg/actuati on aerosol inhaler INHALE 2 PUFFS BY MOUTH EVERY 4 HOURS active Not Available Not Available No t Available atropine 1 % eye drops 09/04 completed Not Available Not Available Not Available metformin ER 500 mg tablet,exte nded release 24 hr TAKE 1 TABLET BY MOUTH EVERY DAY active Not Available Not Available No t Available naproxen 500 mg tablet Take 1 tablet twice a day by oral route. 09/25 completed Not Available Not Available Not Available diazepam 5 mg tablet TAKE 1/2 (ONE HALF) TABLET BY MOUTH TWICE A DAY NEEDED 09/25 completed Not Available Not Available Not Available amoxicillin 500 mg-leopoldou m clavulanate 125 mg tablet TAKE 1 TABLET BY MOUTH EVERY 12 HOURS UNTIL ALL TAKEN 05/07 completed Not Available Not Available Not Available Vitamin D3 25 mcg (1,000 unit) tablet Take 1 tablet every day by oral route as directed for 30 days. 2020 active Not Available Not Available Not Avai lable metformin ER 1,000 mg tablet,exte nded release 24hr (osmotic) Take 1 tablet every day by oral route. 11/01 completed Not Available Not Available Not Available metformin ER 500 mg 24 hr tablet,exte nded release (gastric retention) Take 2 tablets every day by oral route. 09/25 completed Not Available Not Available Not Available Januvia 100 mg tablet Take 1 tablet every day by oral route. 10/30 completed Not Available Not Available Not Available metformin ER 1,000 mg 24 hr tablet,exte nded release (gastric reten.) TAKE 1 TABLET BY MOUTH EVERY DAY 11/01 completed Not Available Not Available Not Available fenofibrate 54 mg tablet TAKE ONE TABLET BY MOUTH DAILY AT 9 AM IN THE MORNING active Not Available Not Available No t Available Trueresult Blood Glucose System kit 2021 active Not Available Not Available Not Avai lable OneTouch Verio test strips TEST BLOOD SUGARS TWICE DAILY DIRECTED active Not Available Not Available No t Available Farxiga 10 mg tablet 05/07 completed Not Available Not Available Not Available Farxiga 5 mg tablet TK 1 T PO QD 09/25 completed Not Available Not Available Not Available Jardiance 25 mg tablet TAKE 1 TABLET BY MOUTH EVERY DAY active Not Available Not Available No t Available Trulicity 1.5 mg/0.5 mL subcutaneou s pen injector ADMINISTE R 1.5 MG UNDER THE SKIN EVERY WEEK AT DINNER 2022 active Not Available Not Available Not Avai lable Trulicity 0.75 mg/0.5 mL subcutaneou s pen injector ADMINISTE R 0.75 MG UNDER THE SKIN EVERY WEEK AT DINNER 05/07 completed Not Available Not Available Not Available OneTouch Verio Meter USE TO TEST BLOOD SUGAR TWICE DAILY 2018 active Not Available Not Available Not Avai lable magnesium 400 mg (as magnesium oxide) tablet Take 1 tablet every day by oral route as directed for 30 days. 05/07 completed Not Available Not Available Not Available OneTouch Delica Plus Lancet 33 gauge USE TO TEST BS BID active Not Available Not Available No t Available FreeStyle Deepika 2 Sensor kit 2022 active Not Available Not Available Not Avai lable FreeStyle Deepika 2 Grandin active Not Available Not Available Not Available Trulicity 3 mg/0.5 mL subcutaneou s pen injector Inject 3 mg every week by subcutane ous route at dinner for 90 days. active Not Available Not Available No t Available Vitals Date Recorded Body height Oxygen saturation Heart rate Respiratory rate Body temperature Systolic And Diastolic Provider Name and Address Organization Details Last Updated DateTime 3 157.48 cm 100 % 80 /min 16 /min 97.9 [degF] 91/49 mm[Hg] Not Available [facility] 3 22:23:00 Date Recorded Body height Oxygen saturation Heart rate Respiratory rate Body temperature Systolic And Diastolic Provider Name and Address Organization Details Last Updated DateTime 3 157.48 cm 100 % 76 /min 16 /min 98.4 [degF] 106/44 mm[Hg] Not Available [facility] 3 22:23:00 Date Recorded Body height Oxygen saturation Heart rate Respiratory rate Body temperature Systolic And Diastolic Provider Name and Address Organization Details Last Updated DateTime 3 157.48 cm 99 % 82 /min 18 /min 97.9 [degF] 95/62 mm[Hg] Not Available [facility] 3 22:23:00 Date Recorded Body mass index (BMI) Body height Oxygen saturation Heart rate Respiratory rate Body temperature Body weight Systolic And Diastolic Provider Name and Address Organization Details Last Updated DateTime 3 28.3 kg/m2 157.48 cm 99 % 80 /min 16 /min 97.6 [degF] 26674.8 2 g 100/66 mm[Hg] Not Available [facility] 3 22:23:00 Social History Question Answer Notes LastModified by [email or web address] Details LastModified Time Tobacco Smoking Status Current Every Day Smoker Not Available [facility] 05/19/2022 22:22:37 Do You Have An Advance Directive? No [id number] Information not available 05/19/2022 What Is Your Level Of Caffeine Consumption? Moderate [id number] Information not available 05/19/2022 How Much Tobacco Do You Chew? None [id number] Information not available 05/19/2022 In The 14 Days Before Symptom Onset, Have You Had Close Contact With A Laboratory-confir med COVID-19 While That Case Was Ill? No [id number] Information not available 05/19/2022 In The 14 Days Before Symptom Onset, Have You Had Close Contact With A Person Who Is Under Investigation For COVID-19 While That Person Was Ill? No [id number] Information not available 05/19/2022 What Type Of Diet Are You Following? REGULAR [id number] Information not available 05/19/2022 Which Illicit Or Recreational Drugs Have You Used? Cannabis Every Night [id number] Information not available 05/19/2022 Are There Any Guns Present In Your Home? No [id number] Information not available 05/19/2022 At What Age Did You Start Smoking Tobacco? 14 [id number] Information not available 05/19/2022 How Much Tobacco Do You Smoke? 0.25 PPD [id number] Information not available 05/19/2022 Do You Use Sunscreen Routinely? No [id number] Information not available 05/19/2022 Sex: Unknown Functional Status Question Answer Note LastModified by [email or web address] Details LastModified Time What is your level of alcohol consumption? Occasional [id number] Information not available 05/19/2022 Do you or have you ever used smokeless tobacco? 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 Never used electronic cigarettes [id number] Information not available 05/19/2022 What is your exercise level? Moderate [id number] Information not available 05/19/2022 Mental Status None recorded. Family History Relationship Description Onset Age of this Age Resolved Age Notes LastModified by Organization Details LastModified Time Mother Diabetes mellitus [id number] Not available 05/19/2022 22:22:50 Mother Asthma [id number] Not available 05/19/2022 22:22:50 Mother Cardiac pacemaker in situ [id number] Not available 05/19/2022 22:22:50 Sister Diabetes mellitus deceas ed [id number] Not available 05/19/2022 22:22:50 Sister Asthma [id number] Not available 05/19/2022 22:22:50 Sister Asthma [id number] Not available 05/19/2022 22:22:50 Medical History Condition Response BLINDNESS N NERVE DISEASE N RHEUMATIC FEVER N BLADDER PROBLEMS N KIDNEY STONES N MRSA N OTHER # 1 N POLIO N LUNG DISEASE/DISORDER N RADIATION / CHEMOTHERAPY N COPD N Other # 2 N BLOOD DISEASES N SURGERY N EAR OR HEARING PROBLEMS N MUMPS N BOWEL PROBLEMS N DEPRESSION (INCLUDING POST ) N STROKE/TIA N ULCERS Y BENIGN PROSTATIC HYPERPLASIA N MEASLES N MYOCARDIAL INFARCTION N OBESITY N GERD/NAUSEA N ANEURYSM N URINARY/BLADDER/KIDNEY PROBLEMS N CORONARY ARTERY DISEASE (CAD) Y ADDICTION CONCERNS N ENDOMETRIOSIS N Impotence N USE OF BLOOD THINNERS Y SKIN PROBLEMS N GASTROINTESTINAL DISORDER N PERIPHERAL VASCULAR DISEASE Y MUSCLE,JOINT OR BONE PROBLEMS N GASTROINTESTINAL BLEEDING N BLOOD CLOTS N ASTHMA N CATARACTS N ERECTILE DYSFUNCTION N VARICOSITIES N GI PROBLEMS N Low Testosterone N INFERTILITY N AIDS/HIV N CHEMOTHERAPY / RADIATION N LIVER DISEASE N MALE HYPOGONADISM N HYPERTENSION N Deficiency N ANXIETY DISORDER N BLOOD TRANSFUSION N ANEMIA/BLOOD DISORDER N CHRONIC EAR INFECTIONS N BRONCHITIS N TUBERCULOSIS N GLAUCOMA N FOOT PROBLEM N DIVERTICULITIS N SLEEP APNEA N CHICKENPOX N INFECTIOUS DISEASE N HEART ARRHYTHMIA N PROSTATE N INSOMNIA N HIGH CHOLESTEROL / HYPERLIPIDEMIA Y HYPERTHYROIDISM N EYE PROBLEMS N NEUROLOGICAL PROBLEMS N EDEMA N CHRONIC PAIN SYNDROME N HYPOTHYROIDISM N CAROTID BLOCKAGE Y CONSTIPATION N BACK / NECK PROBLEMS N ATHEROSCLEROSIS N BREAST PROBLEMS N DIALYSIS N ECZEMA N OSTEOPOROSIS N ARTHRITIS Y APPENDICITIS N DIABETES, TYPE Y BAD TEETH N ENT N HEARTBURN / REFLUX N AFIB N AUTISM SPECTRUM DISORDER (ASD) N HEPATITIS / LIVER DISEASE N GOUT N SLEEP DISORDER N ALZHEIMER'S DISEASE N Brain Problems N HERPES N DEMENTIA N HEADACHES/MIGRAINES N SEIZURES/EPILEPSY N VASCULAR DISEASE N PACEMAKER N Blood Disorder N DIZZINESS N HEART DISEASE/HEART PROBLEMS N KIDNEY DISEASE N MULTIPLE SCLEROSIS N CARDIAC ARRHYTHMIA N CANCER: SPECIFY N ATRIAL FIBRILLATION N Gall Stones N PULMONARY EMBOLISM N AUTOIMMUNE DISEASE N Gynecological HistoryNo gynecological history recorded. Obstetrics History GPAL:G 0 P 0 0 0 0 Immunizations Vaccine Type Date Status Note Provider Nam e and Address Organization Details Recorded Time Tdap 1 completed Not Available [facility] 12/15/2022 11:14:14 pneumococcal polysaccharide PPV23 1 completed Not Available [facility] 12/15/2022 11:14:14 Influenza, split virus, trivalent, preservative 5 completed Not Available [facility] 12/15/2022 11:14:14 Past Encounters Encounter ID Performer Location Encounter Start Date Encounter Closed Date Diagnosis/Indication Diagnosis SNOMED-CT Code Diagnosis ICD10 Code Diagnosis IMO Codes Diagnosis Note [id number] [facility] [facility] [address] [place] [address] 05/28/2020 00:00:00 06/23/2020 15:53:17 [id number] Pradeep Burdick DPM [facility] [address] [place] [address] 06/18/2020 00:00:00 06/23/2020 14:58:00 [id number] [facility] [facility] [address] [place] [address] 10/01/2020 00:00:00 10/01/2020 13:36:55 [id number] [place] [facility] [place] [address] [address] 03/26/2021 00:00:00 03/26/2021 15:02:17 [id number] [facility] [facility] [address] [place] [address] 04/01/2021 00:00:00 04/01/2021 14:18:01 [id number] [facility] [address] [place] [address] 04/08/2021 00:00:00 04/08/2021 14:01:30 [id number] [facility] [address] [place] [address] 05/11/2021 00:00:00 05/11/2021 16:30:54 [id number] MD [facility] [address] [place] [address] 05/18/2021 00:00:00 05/18/2021 16:36:35 [id number] MD [facility] [address] [place] [address] 05/25/2021 00:00:00 05/26/2021 18:12:09 [id number] MD [facility] [address] [place] [address] 06/15/2021 00:00:00 06/15/2021 16:21:46 [id number] MD [facility] [address] [place] [address] 07/13/2021 00:00:00 07/13/2021 16:30:18 [id number] MD [facility] [address] [place] [address] 08/31/2021 00:00:00 08/31/2021 18:26:20 [id number] MD [facility] [address] [place] [address] 09/07/2021 00:00:00 09/07/2021 17:22:48 [id number] MD [facility] [address] [place] [address] 09/14/2021 00:00:00 09/14/2021 20:49:28 [id number] MD [facility] [address] [place] [address] 09/28/2021 00:00:00 09/28/2021 18:08:11 [id number] Milli Dunlap MD _ADDISON_M IGRATION_ DEFAULT_1 _1 , 10/01/2021 00:00:00 10/01/2021 14:06:47 [id number] MD [facility] [address] [place] [address] 10/05/2021 00:00:00 10/05/2021 18:54:31 [id number] MD [facility] [address] [place] [address] 10/19/2021 00:00:00 10/19/2021 17:37:22 [id number] MD [facility] [address] [place] [address] 10/26/2021 00:00:00 10/26/2021 19:05:27 [id number] MD [facility] [address] [place] [address] 10/28/2021 00:00:00 11/02/2021 16:30:01 [id number] MD [facility] [address] [place] [address] 10/30/2021 00:00:00 11/02/2021 16:29:38 [id number] MD [facility] [address] [place] [address] 11/02/2021 00:00:00 11/02/2021 17:36:02 [id number] Rosalio lopez MD [facility] [address] [place] [address] 11/09/2021 00:00:00 11/09/2021 18:02:57 [id number] Rosalio lopez MD [facility] [address] [place] [address] 11/16/2021 00:00:00 11/16/2021 18:38:50 [id number] Pradeep Burdick DPM [facility] [address] [place] [address] 11/25/2021 00:00:00 11/25/2021 16:56:21 [id number] Pradeep Burdick DPM [facility] [address] [place] [address] 12/02/2021 00:00:00 12/03/2021 12:59:14 [id number] Pradeep Burdick DPM [facility] [address] [place] [address] 12/09/2021 00:00:00 12/09/2021 16:59:11 [id number] Pradeep Burdick DPM [facility] [address] [place] [address] 12/23/2021 00:00:00 01/06/2022 12:52:52 [id number] Pradeep Burdick DPM [facility] [address] [place] [address] 12/30/2021 00:00:00 01/04/2022 14:03:13 [id number] Pradeep Burdick DPM [facility] [address] [place] [address] 01/13/2022 00:00:00 01/13/2022 14:58:34 [id number] Pradeep Burdick DPM [facility] [address] [place] [address] 01/20/2022 00:00:00 01/21/2022 12:02:25 [id number] Pradeep Burdick DPM [facility] [address] [place] [address] 01/28/2022 00:00:00 01/28/2022 10:13:26 [id number] [facility] [address] [place] [address] 02/04/2022 00:00:00 02/04/2022 16:51:03 [id number] [facility] [address] [place] [address] 02/24/2022 00:00:00 02/25/2022 11:54:58 [id number] Pradeep Burdick DPM [facility] [address] [place] [address] 2022 00:00:00 03/04/2022 08:41:17 [id number] Pradeep Burdick DPM [facility] [address] [place] [address] 03/10/2022 00:00:00 03/11/2022 08:51:33 [id number] Pradeep Burdick DPM [facility] [address] [place] [address] 03/24/2022 00:00:00 04/01/2022 10:57:30 [id number] Pradeep Burdick DPM [facility] [address] [place] [address] 03/31/2022 00:00:00 04/01/2022 10:56:14 [id number] VENKATA LazoM [facility] [address] [place] [address] 04/14/2022 00:00:00 04/14/2022 13:24:01 [id number] VENKATA LazoM [facility] [address] [place] [address] 04/21/2022 00:00:00 04/21/2022 09:52:32 [id number] Pradeep Burdick DPM [facility] [address] [place] [address] 05/05/2022 00:00:00 05/06/2022 13:25:09 [id number] Milli Dunlap MD [facility] [address] [place] [address] 05/07/2022 00:00:00 05/07/2022 10:27:18 Health Concerns Section Related Observation LastModified by Organization Detai ls LastModified Time None Recorded Concern Status LastModified by Organization Details LastModified Time None Recorded Advance Directives Directive N: Payers Insurance Date Sequence Insurance Name Policy Number Policy [place] Covered Member ID [place] Member ID Guarantor Name 10/29/2023 1 [facility] (MEDICARE REPLACEMENT/A DVANTAGE - HMO) [id number] Audrey Stuart [id number] Audrey Stuart 09/05/2023 1 [place] Audrey Stuart [id number] Audrey Stuart 10/29/2023 2 [place] [employer]MENT [employer] Audrey Stuart [id number] Audrey Stuart OBGyn Episode No OBEpisode recorded.
--- OUTSIDE RECORDS SUMMARY | 2025-02-26 19:28 | XMS_ITS | Clinical Summary ---
Author Organization [facility] Address [address] [facility] [place] [address] Phone Care Team Providers Care Churn Drill Operator Name Role Phone Renzo Castañeda APRN, LEATHER STITCHER Primary Care Provider + Allergies No known [...] patient's age to complete this topic [place] [address] [address] [place] [address] Care Teams Churn Drill Operator Relationship Specialty Start Date End Date Renzo Castañeda, INCUBATOR MACHINE OPERATOR, LEATHER STITCHER [address] [place] [address] [address] [place] [address] PCP - General Internal Medicine 09/22/18
--- OUTSIDE RECORDS SUMMARY | 2025-02-26 19:28 | XMS_ITS | Clinical Summary ---
Author Organization [facility] Address [address] [place] [address] Care Team Providers Care Manager Fine Dining Name Role Phone Ronnell Smith MD Primary Care Provider + [phone] Allergies No known active allergies Medications albuterol HFA (PROVENTIL HFA,VENTOLIN HFA,PROAIR HFA) 90 mcg/actuation inhaler albuterol sulfate HFA 90 mcg/actuation aerosol inhaler INHALE 2 PUFFS BY MOUTH EVERY 4 HOURS Active atorvastatin (LIPITOR) 20 mg tablet Take 20 mg by mouth daily with dinner 0 Active OneTouch Verio test strips strip USE TO TEST BS BID 0 Active blood-glucose meter (OneTouch Verio Meter) [facility] OneTouch Verio Meter USE TO TEST BS ONCE DAILY Active lancets 33 gauge [facility] OneTouch Delica Plus Lancet 33 gauge USE [...] Diagnosed Date Coronary artery disease invo lving [place] heart without angina pectoris 05/26/2020 Overview (05/26/2020): Added automatically from request for surgery [id number] Lightheadedness 01/10/2020 Assessment & Plan (02/11/2020 9:22 AM MUSIC PUBLICIST): Patient has undergone MRA brain which demonstrates [...] 01/10/2020 Assessment & Plan (02/11/2020 9:21 AM MUSIC PUBLICIST): Patient describes continued episodic headaches with clear [...] 01/10/2020 Assessment & Plan (02/11/2020 9:21 AM MUSIC PUBLICIST): Patient has history of peripheral neuropathy in [...] often do you attend chur ch or mosque services? Never 05/22/2020 Do you belong to any clubs o r organizations such as mormon groups, unions, fraternal or athletic groups, or [...] on file Legal Sex Female 1:13 AM MUSIC PUBLICIST Gender Identity Not on file Sexual Orientation [...] on file Medical Devices Implanted Type Area Instructor Kindergarten Device Identifier Shelf Expiration Date Model / Serial / Lot [employer] [id number] Solia S 53cm Steroid Elute Bipolar Active Fixation Endocardial - [id number] - [id number] Implanted:Qty: 1 on 06/06/2020 by Omero Osullivan MD at [facility] Lead [employer] [id number] 02/17/2022 [id number] / [id number] 90 / [employer] [id number] Solia S 45cm Bipolar Active Fixation Lead Pacing Steroid Eluting - [id number] - [id number] Implanted:Qty: 1 on 06/06/2020 by Omero Osulilvan MD at [facility] Lead [employer] [id number] 02/17/2022 [id number] / [id number] 97 / [employer] [id number] Edora Promri 27s94t3.5mm Dual Chamber Rate Adaptive Unipolar Bipolar - [id number] - [id number] Implanted:Qty: 1 on 06/06/2020 by Omero Osullivan MD at [facility] Pacemaker [employer] [id number] 08/18/2021 [id number] / [id number] / [employer] [id number] Didier-Mcca rthy-Smith Imr Etlogix 28mm 3d Reduced Curvature - [id number] - [id number] Implanted:Qty: 1 on 06/02/2020 by Hosea Carreon MD at [facility] N/A: Heart [employer] 02/16/2025 [id number] / [id number] / Description:Mitral ring [employer] [id number] Ozzy soriano Physio 28mm Tricuspid Ring Annuloplasty Heart - [id number] - [id number] Implanted:Qty: 1 on 06/02/2020 by Hosea Carreon MD at [facility] N/A: Heart [employer] 02/04/2025 [id number] / [id number] / Description:Tricuspid ring Insurance [facility] MEDICARE ADVANTAGE [facility] Address: [facility] [address] [place] [address] IDPA IDPA [facility] MEDICARE ADVANTAGE [facility] Address: [address] [address] [place] [address] IDPA Advance Directives For more information, please contact: [phone] * Full Code (Latest Code Status on File) Date Activated Date Inactivated Comments 06/02/2020 4:51 PM 06/09/2020 10:02 PM * Full Code Date Activated Date Inactivated Comments 05/21/2020 3:35 PM 05/24/2020 6:03 PM Care Teams Manager Fine Dining Relationship Specialty Start Date End Date Ronnell Smith MD PCP - General Internal Medicine 02/11/20
--- OUTSIDE RECORDS SUMMARY | 2025-02-26 19:28 | XMS_ITS | Data Portability ---
Author Organization [facility] [place] Address [address] [facility] [place] [address] Care Team Providers Care Health Services Administrator Name Role Phone BAMBI STEINER Soil Surveyor DALLAS MARIE Camera Person MARILU PATTERSON Cuff Stitcher Assessment Encounter Date Assessment Date Assessment LastModified by Organization Details LastModified Time 01/26/2024 01/26/2024 Late entry Podiatry RF oajao Not available 01/27/2024 10:27:19 Plan of Treatment Reminders Order Date Submit Date Provider Last Modified By Organization Details Last Modified Time Details Appointments None recorded . Lab CBC w/ auto diff 2024 025 [facility], [address] [place] [address], [facility], [place], [address], 5 16:44:46 CMP, serum or plasma 2024 025 [facility], [address] [facility], [facility], [place], [address], 5 16:44:46 HbA1c (hemoglo bin A1c), blood 2024 025 [facility], [address] [place] [address], [facility], [place], [address], 5 05:43:02 lipid panel, serum 2024 025 [facility], [address] [place] [address], [address], [place], [address], 5 16:44:46 microalb umin/cre atinine, mass ratio, urine 2024 025 [facility], [address] [facility], [address], [place], [address], 5 17:57:31 TSH, ultra-se nsitive, serum 2023 024 [facility], [address], [address], [place], [address], 4 07:14:20 HbA1c (hemoglo bin A1c), blood 2023 024 [facility], [address], [address], [place], [address], 4 11:06:19 lipid panel, serum 2023 024 [facility], [address], [address], [place], [address], 4 07:14:17 microalb umin/cre atinine, mass ratio, urine 2023 024 [facility], [address], [address], [place], [address], 4 17:34:07 hemoglob in + hematocr it, blood 2022 023 [facility], [address], [address], [place], [address], 4 13:23:31 CMP, serum or plasma 2022 023 [facility], [address], [address], [place], [address], 4 13:23:31 vitamin D, 25-hydro xy, total, serum 2022 023 [facility], [address], [address], [place], [address], 4 13:23:31 HbA1c (hemoglo bin A1c), blood 2022 023 [facility], [address], [address], [place], [address], 4 13:14:46 lipid panel, serum 2022 023 [facility], [address], [address], [place], [address], 4 10:19:59 noninvas niyah colorect al cancer DNA + occult blood screenin g, QL, stool 2022 023 [facility], [address], [address], [place], [address], 4 10:04:34 glucose, fingerst ick, blood 2022 023 [email or web address] In-Office Order, Internal Use Only DO Not Attach Compendium DO Not Attach Compendium, Do Not Delete/merge, [id number] 3 14:35:27 Referral cardiolo gist referral 2024 025 ADDISON Steiner MD, [address], [address], [place], [address], 5 04:49:14 diabetic ophthalm ology referral 2024 025 ADDISON Ramirez MD, [address], [place], [address], 5 07:40:05 endocrin ology, diabetes & metaboli sm speciali st referral 2024 025 [facility] End[facility]ology , [address], [address], [place], [address], 5 04:13:[address] referral - DM 2023 024 [facility], [address], [place], [address], 5 16:28:[address] referral - Weight loss, chronic anemia and a history of abdomina l pain 2023 024 shruti Mcneal MD, [address], [address], [place], [address], 4 10:27:28 diabetic ophthalm ology referral 2023 024 shruti Ramirez MD, [address] , [place], [address], 5 11:07:16 endocrin ology, diabetes & metaboli sm speciali st referral - Uncontro lled DM 2023 024 [facility] Rachael López [facility], [address] [facility] , [address], [place], [address], 5 09:38:58 gynecolo gist referral 2022 023 [facility]- Upholstery Restorer, [address] [facility], [place], [address], 4 16:08:15 diabetic ophthalm ology referral - HBA1C 6.1 2022 023 shruti Ramirez MD, [address] , [place], [address], 4 19:27:49 Procedures None recorded . Surgeries None recorded . Imaging LDCT, chest, for lung cancer screenin g [address] (Imaging), [address], [place], [address], 5 09:28:24 XR, chest - Smoker with weight loss 2023 024 [facility] (Imaging), [address] [facility] [address], [place], [address], 5 16:34:07 MAMMO, screenin g, bilatera l 2023 024 [facility] (Mammography) , [address], [place], [address], 5 17:41:00 MAMMO, screenin g, bilatera l 2023 024 [facility] (One Call Scheduling), [address] [place], [address], 4 09:15:44 XR, chest 2022 023 [facility] (Radiology), [address] [place], [address], 4 13:02:29 US, abdomen, complete - Nausea 2022 023 [facility] (One Call Scheduling), [address] [place], [address], 4 09:30:11 MAMMO, screenin g, bilatera l 2022 023 [facility] (One Call Scheduling), [address] [place], [address], 3 16:43:52 Medication Orders Trulicit y 0.75 mg/0.5 mL subcutan eous pen injector 2023 024 [id number], [address] , [place], [place], [id number], 15:05:19 Patient TargetsNo targets recorded. Patient Instructions Encounter Date Encounter Id Patient Instructions Last Modified By Organization Details Last Modified Time 12/10/2022 [id number] influenza (flu) vaccine: care instructions oajao Not available 12/10/2022 14:35:27 Peripheral Arterial Disease (PAD): Care Instructions oajao Not available 12/10/2022 19:43:42 nausea and vomiting: care instructions oajao Not available 12/10/2022 14:39:17 learning about breast cancer screening oajao Not available 12/10/2022 14:44:06 type 2 diabetes: care instructions oajao Not available 12/10/2022 14:35:27 Labs Ophthalmolo gy COVID booster (Declined) Cardiology follow up Endocrinology follow up [facility] US WIRE DRAWING DIE MAKER Follow up in 3 months oajao Not available 12/10/2022 14:44:49 Detailed visit oajao Not available 0 12/10/2022 19:53:08 03/02/2023 [id number] Quitting Tobacco : Care Instructions oajao Not available 03/02/2023 15:03:53 Complete 2 D ech o report from [facility] Labs as previously ordered. WIRE DRAWING DIE MAKER CXR Shingrix at her local pharmacy as we do not stock this. Stop smoking Cologard as ordered Follow up in 6 months oajao Not available 03/02/2023 15:04:06 09/01/2023 [id number] learning about breast cancer screening oajao Not available 09/01/2023 15:14:42 type 2 diabetes: care instructions oajao Not available 09/01/2023 14:49:03 Restart Trulicit y 0.75 mg weekly Endocrinology Labs in December, GI Tree Inspector as referred Ophthalmology Stop smoking Follow up in 5 months oajao Not available 09/01/2023 15:15:14 Detaied visit oajao Not available 16:40:00 01/26/2024 [id number] Quitting Tobacco : Care Instructions oajao Not available 01/26/2024 15:16:21 influenza (flu) vaccine: care instructions oajao Not available 01/26/2024 14:56:31 Labs as previous ly ordered CXR [facility] Endocrinology as referred Follow up in 4 months and PRN Addendum GI as referred oajao Not available 01/26/2024 16:49:39 10/16/2024 [id number] [facility] LDCT Labs Ophthalmology Cardiology Endocrinology Follow up in 6 weeks for a CLAUDETTE bahena Not available 10/16/2024 16:28:34 Reason for Referral Diabetic Ophthalmology Refer ral for Uncontrolled type 2 diabetes mellitus HBA1C 6.1 Referring Physician: Renato [facility], Encounter Date: 12/10/2022 Credit Portfolio Advisor Referral for Sc reening for malignant neoplasm of cervix Referring Physician: Renato Stern [facility], Encounter Date: 03/02/2023 Diabetic Ophthalmology Refer ral for Uncontrolled type 2 diabetes mellitus Referring Physician: Renato Stern [facility], Encounter Date: 09/01/2023 Endocrinology, Diabetes & Me tabolism Specialist Referral for Uncontrolled type 2 diabetes mellitus Uncontrolled DM Uncontrolled DM Referring Physician: Janet Bonilla Medicine, Encounter Date: 09/01/2023 Inspector Finishing Referral for Chronic anemia Weight loss, chronic anemia and a history of abdominal pain Weight loss, chronic anemia and a history of abdominal pain Referring Physician: Renato [facility], Encounter Date: 09/01/2023 Washer Assembler Referral for Unco ntrolled type 2 diabetes mellitus DM, HBA1C 7.8% DM Referring Physician: Janet Bonilla Medicine, Encounter Date: 01/26/2024 Diabetic Ophthalmology Refer ral for Uncontrolled type 2 diabetes mellitus HBA1C 7.9% Referring Physician: Janet Bonilla Medicine, Encounter Date: 10/16/2024 Soil Surveyor Referral for Hi story of coronary artery bypass grafting Follow up Referring Physician: Renato [facility], Encounter Date: 10/16/2024 Endocrinology, Diabetes & Me tabolism Specialist Referral for Uncontrolled type 2 diabetes mellitus Uncontrolled DM Referring Physician: Janet Bonilla Medicine, Encounter Date: 10/16/2024 Results Created Date Observation Date Name Description Value Unit Range Abnormal Flag Note LastModifiedBy Organization Detail LastModifiedTime 11/28/1911/27/2022 COLOG UARD cologuard result CANCEL LED - ORDER D not applic able Not Available [facility] [address], [place], [address], 11/27/2022 08:33:22 03/03/20 22 2022 COLOG UARD cologuard result CANCEL LED - DUPLIC ATE ORDER not applic able Not Available [facility] [address], [place], [address], 2022 08:36:28 11/25/1911/25/2022 IRON AND TIBC iron bind.cap.(TI BC) 487 ug/dL 250-45 0 above high normal Not Available [facility] ([facility]) [address] [place], [address], 11/25/2022 09:15:48 11/25/19 23 11/25/2022 IRON AND TIBC UIBC 452 ug/dL 131-42 5 above high normal Speci men recei andre hemol yzed. Value may be incre ased by hemol ysis. Clini jayashree corre latio n indic ated. Not Available [facility] ([facility]) [address] [facility], [place], [address], 11/25/2022 09:15:48 11/25/19 23 11/25/2022 IRON AND TIBC iron 35 ug/dL 27-159 Not Available [facility] ([facility]) [address] [place], [address], 11/25/2022 09:15:48 11/25/19 23 11/25/2022 IRON AND TIBC iron saturation 7 % 15-55 alert low Not Available [facility] ([facility]) [address] [place], [address], 11/25/2022 09:15:48 11/25/19 23 11/25/2022 VITAM IN B12 vitamin B12 820 pg/mL 232-12 45 Not Available [facility] ([facility]) [address] [facility], [place], [address], 11/25/2022 09:15:48 11/25/19 23 11/25/2022 NATHALIE TIN ferritin 145 NG/mL 15-150 Not Available [facility] ([facility]) [address] [facility], [place], [address], 11/25/2022 09:15:49 11/25/19 23 11/24/2022 HGB+H CT hemoglobin 9.1 g/dL 11.1-1 5.9 below low normal Not Available [facility] ([facility]) [address] [facility], [place], [address], 11/25/2022 09:15:50 11/25/19 23 11/24/2022 HGB[address]H [address] hematocrit 28.6 % 34.0-4 6.6 below low normal Not Available [facility] ([facility]) [address] [place], [address], 11/25/2022 09:15:50 12/11/19 23 12/10/2022 gluco se, finge rstic k, blood Blood Glucose: mg/dl 124 Not Available In-Off ice Order Internal Use Only DO Not Attach Compendium DO Not Attach Compendium, Do Not Delete/merge, [id number] 12/10/2022 14:19:56 04/25/19 24 04/25/2023 COLOG UARD cologuard result reportable NEGATI VE negati ve normal NEGAT NIYAH TEST RESUL T. A negat niyah Colog uard resul t indic ates a low likel ihood that a color ectal cance r (CRC) or advan calderon adeno ma (george omato us polyp s with more advan calderon pre-m align ant featu res) is prese nt. The [facility] e that a perso n with a negat niyah Colog uard test has a color ectal cance r is less than 1 in 1500 (nega tive predi ctive value >99.9 %) or has an advan calderon adeno ma is less than 5.3% (nega tive predi ctive value 94.7% ). These data are based on a prosp ectiv e cross -sect ional study of 10,00 0 indiv idual s at [facility] risk for color ectal cance r who were scree conrado with both Colog uard and colon oscop y. (Impe cheyenne Doty et al, N Engl J Med 2014; 370(1 4):12 86-12 97) The ayala l value (refe rence range ) for this assay is negat niyah. COLOG UARD RE-SC BRANDON ALLAN RECOM MENDA TION: Perio dic color ectal cance r scree vira is an impor tant part of preve ntive healt hcare for asymp tomat ic indiv idual s at [facility] risk for color ectal cance r. Follo wing a negat niyah Colog uard resul t, the Ameri can Cance r Socie ty and U.S. Multi -Soci ety Task Force scree vira guide lines recom mend a Colog uard re-sc brandon allan inter yashira of 3 years . Refer ences : Ameri can Cance r Socie ty Guide line for Color ectal Cance r Scree vira: https ://jason w.can cer.o rg/ca ncer/ colon -rect al-ca ncer/ detec tion- diagn osis- stagi ng/ac s-rec ommen datio ns.ht ml.; Gigi PALACIO, Amrik martinez CR, Rafael perales JK, Color ectal Cance r Scree vira: Recom menda tions for Physi cians and Patie nts from the U.S. Multi -Soci ety Task Force on Color ectal Cance r Scree vira , Salome suarezntharrison rolog y 2017; 112:1 016-1 030. TEST DESCR IPTIO N: [place] site algor ithmi c ryley sis of stool DNA-b reyna whitfield with hemog lobin immun oassa y. Quant itati ve value s of indiv idual bioma rkers are not repor table and are not assoc iated with indiv idual bioma rker resul t refer ence range s. Colog uard is inten ded for color ectal cance r scree vira of adult s of eithe r sex, 45 years or older , who are at [facility] for color ectal cance r (CRC) . Colog uard has been appro andre for use by the U.S. FDA. The perfo rmanc e of Colog uard was estab lishe d in a cross secti onal study of [facility] adult s aged 50-84 . Colog uard perfo rmanc e in patie nts ages 45 to 49 years was estim ated by coco-dot gregory ryley sis of near- age group s. Colon oscop ies perfo rmed for a posit niyah resul t may find as the most clini matteo signi ficjay t lesio n: color ectal cance r [4.0% ], advan calderon adeno ma (incl uding sessi le alida jaiden polyp s great er than or equal to 1cm diame ter) [20%] or non- advan calderon adeno ma [31%] ; or no color ectal neopl heike [45%] . These estim ates are deriv ed from a prosp ectiv e cross -sect ional scree vira study of 10,00 0 indiv idual s at [facility] risk for color ectal cance r who were scree conrado with both Colog uard and colon oscop y. (Deven Bill al, N Engl J Med 2014; 370(1 4):12 86-12 97.) Colog uard may produ ce a false negat niyah or false posit niyah resul t (no color ectal cance r or preca ncero us polyp prese nt at colon oscop y follo w up). A negat niyah Colog uard test resul t does not guara ntee the absen ce of CRC or advan calderon adeno ma (pre- cance r). The curre nt Colog uard scree vira inter yashira is every 3 years . (Amer ican Cance r Socie ty and U.S. Multi -Soci ety Task Force ). Colog uard perfo rmanc e data in a 10,00 0 patie nt pivot al study using colon oscop y as the refer ence metho d can be acces sed at the follo wing locat ion: www.e xactl abs.c om/re sults . Addit ional descr iptio n of the Colog uard test proce ss, warni ngs and preca ution s can be found at www.c ologu yovani.c om. Not Available [facility] [address], [place], [address], 05/03/2023 10:04:34 08/30/19 24 08/31/2023 LIPID PANEL cholesterol, total 139 mg/dL 100-19 9 Not Available [facility] ([facility]) [address] [place], [address], 08/31/2023 10:19:59 08/30/19 24 08/31/2023 LIPID PANEL triglyceride s 168 mg/dL 0-149 above high normal Not Available [facility] ([facility]) [address] [place], [address], 08/31/2023 10:19:59 08/30/19 24 08/31/2023 LIPID PANEL HDL cholesterol 31 mg/dL >39 below low normal Not Available [facility] ([facility]) [address] [place], [address], 08/31/2023 10:19:59 08/30/19 24 08/31/2023 LIPID PANEL VLDL cholesterol jayashree 29 mg/dL 5-40 Not Available [facility] ([facility]) [address] [place], [address], 08/31/2023 10:19:59 08/30/19 24 08/31/2023 LIPID PANEL LDL chol calc ([facility]) 79 mg/dL 0-99 Not Available [facility] ([facility]) [address] [place], [address], 08/31/2023 10:19:59 08/30/19 24 08/31/2023 COMP. METAB OLIC PANEL (14) glucose 193 mg/dL 70-99 above high normal Not Available [facility] ([facility]) [address] [facility] [place], [address], 08/31/2023 10:20:00 08/30/19 24 08/31/2023 COMP. METAB OLIC PANEL (14) BUN 32 mg/dL 6-24 above high normal Not Available [facility] ([facility]) [address] [facility] [place], [address], 08/31/2023 10:20:00 08/30/19 24 08/31/2023 COMP. METAB OLIC PANEL (14) creatinine 1.26 mg/dL 0.57-1 .00 above high normal Not Available [facility] ([facility]) [address] [facility] [place], [address], 08/31/2023 10:20:00 08/30/19 24 08/31/2023 COMP. METAB OLIC PANEL (14) eGFR 49 mL/mi n/1.7 3 >59 below low normal Not Available [facility] ([facility]) [address] [facility] [place], [address], 08/31/2023 10:20:00 08/30/19 24 08/31/2023 COMP. METAB OLIC PANEL (14) BUN/creatini ne ratio 25 9-23 above high normal Not Available [facility] ([facility]) [address] [facility] [place], [address], 08/31/2023 10:20:00 08/30/19 24 08/31/2023 COMP. METAB OLIC PANEL (14) sodium 142 mmol/ L 134-14 4 Not Available [facility] ([facility]) [address] [facility] [place], [address], 08/31/2023 10:20:00 08/30/19 24 08/31/2023 COMP. METAB OLIC PANEL (14) potassium 4.7 mmol/ L 3.5-5. 2 Not Available [facility] ([facility]) [address] [facility] [place], [address], 08/31/2023 10:20:00 08/30/19 24 08/31/2023 COMP. METAB OLIC PANEL (14) chloride 105 mmol/ L 96-106 Not Available [facility] ([facility]) [address] [facility], [place], [address], 08/31/2023 10:20:00 08/30/19 24 08/31/2023 COMP. METAB OLIC PANEL (14) carbon dioxide, total 24 mmol/ L 20-29 Not Available [facility] ([facility]) [address] [facility], [place], [address], 08/31/2023 10:20:00 08/30/19 24 08/31/2023 COMP. METAB OLIC PANEL (14) calcium 9.0 mg/dL 8.7-10 .2 Not Available [facility] ([facility]) [address] [facility], [place], [address], 08/31/2023 10:20:00 08/30/19 24 08/31/2023 COMP. METAB OLIC PANEL (14) protein, total 6.4 g/dL 6.0-8. 5 Not Available [facility] ([facility]) [address] [facility] [place], [address], 08/31/2023 10:20:00 08/30/19 24 08/31/2023 COMP. METAB OLIC PANEL (14) albumin 4.0 g/dL 3.8-4. 9 Not Available [facility] ([facility]) [address] [facility], [place], [address], 08/31/2023 10:20:00 08/30/19 24 08/31/2023 COMP. METAB OLIC PANEL (14) globulin, total 2.4 g/dL 1.5-4. 5 Not Available [facility] ([facility]) [address] [facility], [address], 08/31/2023 10:20:00 08/30/19 24 08/31/2023 COMP. METAB OLIC PANEL (14) A/G ratio 1.7 Not Available [facility] ([facility]) [address] [facility] [place], [address], 08/31/2023 10:20:00 08/30/19 24 08/31/2023 COMP. METAB OLIC PANEL (14) bilirubin, total 0.4 mg/dL 0.0-1. 2 Not Available [facility] ([facility]) [address] [place], [address], 08/31/2023 10:20:00 08/30/19 24 08/31/2023 COMP. METAB OLIC PANEL (14) alkaline phosphatase 92 IU/L 44-121 Not Available [facility]) [address] [facility] [place], [address], 08/31/2023 10:20:00 08/30/19 24 08/31/2023 COMP. METAB OLIC PANEL (14) AST (SGOT) 12 IU/L 0-40 Not Available [facility] ([facility]) [address] [facility] [place], [address], 08/31/2023 10:20:00 08/30/19 24 08/31/2023 COMP. METAB OLIC PANEL (14) ALT (SGPT) 8 IU/L 0-32 Not Available [facility] ([facility]) [address] [facility] [place], [address], 08/31/2023 10:20:00 08/30/19 24 08/31/20[address] H[address] hemoglobin 10.2 g/dL 11.1-1 5.9 below low normal Not Available [facility] ([facility]) [address] [facility], [place], [address], 08/31/2023 10:20:01 08/30/19 24 08/31/[address] hematocrit 32.3 % 34.0-4 6.6 below low normal Not Available [facility] ([facility]) [address] [facility], [place], [address], 08/31/2023 10:20:01 08/30/19 24 08/31/2023 HEMOG LOBIN A1C hemoglobin A1C 7.8 % 4.8-5. 6 above high normal Predi abete s: 5.7 - 6.4 Diabe oscar: >6.4 Glyce gui contr ol for adult s with diabe oscar: <7.0 Not Available [facility] ([facility]) [address] [facility], [place], [address], 08/31/2023 13:14:45 08/30/19 24 08/31/2023 VITAM IN D, 25-HY DROXY vitamin D, 25-hydroxy 36.9 NG/mL 30.0-1 00.0 Vitam in D defic iency has been defin ed by the Insti tute of Medic ine and an Endoc rine Socie ty pract ice guide line as a level of serum 25-OH vitam in D less than 20 ng/mL (1,2) . The Endoc rine Socie ty went on to [facility] defin e vitam in D insuf ficie ncy as a level betwe en 21 and 29 ng/mL (2). 1. IOM (Inst itute of Medic ine). 2010. Dieta ry refer ence intak es for calci um and D. Olimpia beltre [place]: The [facility] Press . 2. Wolfgang hawthorne MF, Jordan ya [place], Kelsey off-F aysha i CHEUNG, et al. Evalu ation , treat ment, and preve ntion of vitam in D defic iency : an Endoc rine Socie ty clini jayashree pract ice guide line. JCEM. 2010; 96(7) :1911 -30. Not Available [facility] ([facility]) [address] [place], [address], 08/31/2023 13:14:46 02/15/20 24 02/16/2024 ALBUM IN/CR EAT RATIO , RANDO M UR creatinine, urine 56.8 mg/dL notest ab. Not Available [facility] ([facility]) [address] [place], [address], 02/16/2024 07:14:16 02/15/20 24 02/16/2024 ALBUM IN/CR EAT RATIO , RANDO M UR albumin, urine 1054.3 ug/mL notest ab. Resul ts confi rmed on dilut ion. Not Available [facility] ([facility]) [address] [facility], [place], [address], 02/16/2024 07:14:16 02/15/20 24 02/16/2024 ALBUM IN/CR EAT RATIO , RANDO M UR alb/creat ratio 1856 mg/g_ creat 0-29 above high normal Ayala l: 0 - 29 Moder ately incre ased: 30 - 300 Sever liang incre ased: >300 Not Available [facility] ([facility]) [address] [place], [address], 02/16/2024 07:14:16 02/15/20 24 02/16/2024 LIPID PANEL cholesterol, total 143 mg/dL 100-19 9 Not Available [facility] ([facility]) [address] [place], [address], 02/16/2024 07:14:17 02/15/20 24 02/16/2024 LIPID PANEL triglyceride s 234 mg/dL 0-149 above high normal Not Available [facility] ([facility]) [address] [place], [address], 02/16/2024 07:14:17 02/15/20 24 02/16/2024 LIPID PANEL HDL cholesterol 27 mg/dL >39 below low normal Not Available [facility] ([facility]) [address] [place], [address], 02/16/2024 07:14:17 02/15/20 24 02/16/2024 LIPID PANEL VLDL cholesterol jayashree 39 mg/dL 5-40 Not Available [facility] ([facility]) [address] [place], [address], 02/16/2024 07:14:17 02/15/20 24 02/16/2024 LIPID PANEL LDL chol calc ([facility]) 77 mg/dL 0-99 Not Available [facility] Lab) [address] [facility], [place], [address], 02/16/2024 07:14:17 02/15/20 24 02/16/2024 HEMOG LOBIN A1C hemoglobin A1C 7.9 % 4.8-5. 6 above high normal Predi abete s: 5.7 - 6.4 Diabe oscar: >6.4 Glyce gui contr ol for adult s with diabe oscar: <7.0 Not Available [facility] ([facility]) [address] [facility], [place], [address], 02/16/2024 07:14:19 02/15/20 24 02/16/2024 TSH TSH 3.050 uIU/m L 0.450- 4.500 Not Available [facility] ([facility]) [address] [facility], [place], [address], 02/16/2024 07:14:20 01/26/20 23 01/25/2023 US, doppl er, arter ial No observ ation record ed. shruti [facility] [address], [place], [address], 03/02/2023 14:39:23 01/27/20 23 01/25/2023 trans -thor acic echoc ardio gram (TTE) (PROC ) No observ ation record ed. oaanita [facility] [address], [place], [address], 03/02/2023 14:39:22 02/03/20 23 02/01/2023 gillian MOYER bilat eral No observ ation record ed. [facility] [address] [place], [address], 03/02/2023 14:39:22 Result Notes None recorded. Problems Name Problem SNOMED Code Status Onset Date Resolution Date Notes Provider Name and Address Organization Details Recorded Time Uncontroll ed type 2 diabetes mellitus 852269392 Active Not Available [facility] 3 04:54:04 Vertigo 089926449 Active Not Available [facility] 3 04:54:04 Tobacco user 588001851 Active Not Available [facility] 3 04:54:03 Infection of tooth 248594189 Active Not Available [facility] 3 04:54:04 Tobacco user 630335677 Active 2018 Not Available [facility] 3 04:54:03 Pain in left knee Active 2018 Not Available [facility] 3 04:54:04 Computed tomography result abnormal 561135328 Active 2018 Not Available [facility] 3 04:54:03 Vitamin D deficiency 80760391 Active 2018 Not Available [facility] 3 04:54:04 Congestive heart failure 12241154 Active 2020 Not Available [facility] 3 04:54:04 History of coronary artery bypass grafting 558071577 Active 2020 Not Available [facility] 3 04:54:04 History of repair of mitral valve 110937570 Active 2020 Not Available [facility] 3 04:54:04 History of tricuspid valve repair 9165924442543 04 Active 2020 Not Available [facility] 3 04:54:03 Nicotine dependence 17566890 Active 2020 Not Available [facility] 3 04:54:04 Cardiac pacemaker in situ 385251930 Active 2020 Not Available [facility] 3 04:54:04 SARS-CoV-2 antigen vaccine declined 7595470174 Active 2021 Not Available [facility] 3 04:54:03 Phantom pain following amputation of lower limb 223585396 Active 2021 Not Available [facility] 3 04:54:04 Amputated below knee 435795413 Active 2021 Not Available [facility] 3 04:54:04 Coronary arterioscl erosis 96627315 Active 2021 Not Available [facility] 3 04:54:04 SARS-CoV-2 mRNA vaccine declined 9970789818 Active 2022 Not Available [facility] 3 04:54:03 Influenza vaccinatio n declined 773847130 Active 2022 Renato Stern MD Attn: Accounting ,[address] [facility], [place], [address] , [place] [facility] 3 14:40:32 Amputated right lower limb below knee 461457757 Active 2023 Renato Stern MD Attn: Accounting ,[address] [facility], [place], [address] , [place] [facility] 4 16:39:31 Problem Notes None recorded. Procedures Surgical History Date Name Laterality Status Provider Name and Address Organization Details Recorded Time 4 Diabetic Foot Exam completed Renato Stern MD Attn: Accounting,[address] [facility], [place], [address], [place] [facility] 01/26/2024 15:11:41 3 Diabetic Foot Exam completed Renato Stern MD Attn: Accounting,[address] [facility], [place], [address], [place] [facility] 12/10/2022 19:38:10 2 Generic Procedure completed Renato Stern MD Attn: Accounting,[address] [facility], [place], [address], [place] [facility] 06/12/2021 12:19:51 1 Pacemaker completed Renato Stern MD Attn: Accounting,[address] [facility], [place], [address], [facility] 09/25/2020 14:27:43 1 open heart surgery completed Verona Blevins [place] [facility] 09/25/2020 14:05:44 1 repair of tricuspid valve completed Renato Stern MD Attn: Accounting,[address] [facility], [place], [address], [place] [facility] 09/25/2020 14:28:06 1 repair of mitral valve completed Renato Stern MD Attn: Accounting,[address] [facility], [place], [address], [place] [facility] 09/25/2020 14:28:24 1 coronary artery bypass grafts x 3 completed Renato Stern MD Attn: Accounting,[address] [facility], [place], [address], [place] [facility] 09/25/2020 14:28:44 6 drainage of empyema completed Renato Stern MD Attn: Accounting,[address] [facility], [place], [address], [place] [facility] 09/25/2020 14:40:07 Other completed Teresa Witt [place] [facility] 09/19/19 15:36:21 Tubal Ligation completed Teresa Witt [place] [facility] 0 09/18/2018 15:36:21 amputation of lower limb through tibia and fibula completed Renato Stern MD Attn: Accounting,[address] [facility], [place], [address], [place] [facility] 09/01/2023 16:32:29 Imaging Results None recorded. Procedure Notes None recorded. Medical Equipment None Reported. Allergies Allergen ID Allergen Name Allergen Category Reaction Reaction Severity Criticality Documentation Date Start Date Code Code System Note Provider Name and Address Organization Details Recorded Time 531349 metformin medicatio n diarrhea severe Not available 10/03/2018 6809 RxNorm Renato Stern MD Attn: Hiram chris,[address], [place], [address], [facility] 2 14:42:57 [id number] No known allergy (situatio n) Not available Not available Not available Not available 11/27/2021 87712 [id number] SNOMED Renato Stern MD Attn: Hiram chris,[address], [place], [address], [facility] 2 14:47:35 Medications Name Sig Start Date Stop Date Status Note LastModified by Organization Details LastModified Time Prescript ion - New 09/18 completed Not Available Not Available Not Available furosemid e 40 mg tablet TAKE ONE TABLET BY MOUTH DAILY AT 9 AM DIRECTED 2024 active Not Available Not Available Not Avai lable atorvasta tin 40 mg tablet TAKE ONE TABLET BY MOUTH DAILY AT 5 PM EVERY EVENING active Not Available Not Available No t Available silver sulfadiaz ine 1 % topical cream APPLY A 1/16 INCH (1.5 MM) THICK LAYER TO ENTIRE WOUND AREA 2 TIMES PER DAY 12/10 completed Not Available Not Available Not Available metformin 500 mg tablet Take 1 tablet every day by oral route for 30 days. 11/01 completed Not Available Not Available Not Available cyanocoba anais (vit B-12) ER 1,000 mcg tablet,ex tended release Take 1 tablet by oral route. 12/10 completed OTC Not Available Not Available Not Available carvedilo l 6.25 mg tablet TAKE ONE TABLET BY MOUTH TWICE DAILY AT 9AM & 5PM DUE FOR FOLLOW UP active Not Available Not Available No t Available repaglini de 2 mg tablet Take by oral route for 30 days. 02/26 completed Not Available Not Available Not Available atorvasta tin 20 mg tablet TAKE 1 TABLET BY MOUTH EVERY DAY 03/02 completed Active as of 03/02/20 23, on 40 mg po daily Not Available Not Available Not Available protamine 10 mg/mL intraveno us solution 50 mg by intraven . route. 11/26 completed Not Available Not Available Not Available atorvasta tin 10 mg tablet 06/12 completed Not Available Not Available Not Available azithromy ifeoma 250 mg tablet TAKE 2 TABLETS (500 MG) BY ORAL ROUTE ONCE DAILY FOR 1 DAY THEN 1 TABLET (250 MG) BY ORAL ROUTE ONCE DAILY FOR 4 DAYS 09/18 completed Not Available Not Available Not Available amiodaron e 200 mg tablet TAKE ONE TABLET BY MOUTH DAILY AT 9 AM active Not Available Not Available No t Available cephalexi n 250 mg capsule 06/12 completed Not Available Not Available Not Available hydrocodo ne 5 mg-acetam inophen 325 mg tablet 08/14 completed Not Available Not Available Not Available ondansetr on HCl 4 mg tablet 09/18 completed Not Available Not Available Not Available clindamyc in HCl 150 mg capsule TAKE 1 CAPSULE BY MOUTH THREE TIMES A DAY FOR 14 DAYS 09/25 completed Not Available Not Available Not Available amoxicill in 250 mg-potass ium clavulana te 125 mg tablet Take 1 tablet by oral route. 11/27 completed Not Available Not Available Not Available clopidogr el 75 mg tablet TAKE ONE TABLET BY MOUTH DAILY AT 9 AM 2024 active Not Available Not Available Not Avai lable ciproflox acin 250 mg tablet TAKE 1 TABLET BY MOUTH EVERY 12 HOURS FOR 10 DAYS DIRECTED 06/12 completed Not Available Not Available Not Available allopurin ol 100 mg tablet TAKE ONE TABLET BY MOUTH DAILY AT 9 AM active Not Available Not Available No t Available ciproflox acin 500 mg tablet 09/18 completed Not Available Not Available Not Available sulfameth oxazole 800 mg-trimet hoprim 160 mg tablet TAKE 1 TABLET BY MOUTH EVERY 12 HOURS FOR 7 DAYS DIRECTED 08/28 completed Not Available Not Available Not Available aspirin 81 mg tablet,de layed release TAKE 1 TABLET BY MOUTH EVERY DAY DIRECTED active Not Available Not Available No t Available tramadol 50 mg tablet Take 2 tablets every 8 hours by oral route as needed for 5 days. 06/12 completed Not Available Not Available Not Available spironola ctone 25 mg tablet TAKE 1/2 (ONE HALF) TABLET BY MOUTH ONCE DAILY 09/25 completed Not Available Not Available Not Available glimepiri de 2 mg tablet TAKE 1 TABLET BY MOUTH EVERY DAY WITH MEALS active Not Available Not Available No t Available carvedilo l 3.125 mg tablet Take 1 tablet every day by oral route as directed . 03/02 completed On 6.25 mg BID, active as of 03/02/20 23 Not Available Not Available Not Available glimepiri de 1 mg tablet TAKE 1 TABLET BY MOUTH EVERY DAY WITH MEALS 02/17 completed Not Available Not Available Not Available meloxicam 7.5 mg tablet TAKE 1 TABLET BY MOUTH TWICE DAILY active Not Available Not Available No t Available ofloxacin 0.3 % ear drops INSTILL 10 DROPS (1.5 MG) INTO AFFECTED EAR(S) BY OTIC ROUTE 2 TIMES PER DAY (Right ear for 10 days) 09/18 completed Not Available Not Available Not Available potassium chloride ER 20 mEq tablet,ex tended release(p art/cryst ) TAKE 1 TABLET BY MOUTH EVERY DAY 02/17 completed Not Available Not Available Not Available prednisol one acetate 1 % eye drops,mukund pension 09/04 completed Not Available Not Available Not Available magnesium oxide 400 mg (241.3 mg magnesium ) tablet TAKE 1 TABLET BY MOUTH EVERY DAY DIRECTED FOR 30 DAYS 02/17 completed Not Available Not Available Not Available Xylocaine 10 mg/mL (1 %) injection solution 20 mL by injectio n route. 11/26 completed Not Available Not Available Not Available meclizine 25 mg tablet Take 1 tablet 3 times a day by oral route as needed for 15 days. 09/25 completed Not Available Not Available Not Available cephalexi n 500 mg capsule TAKE 1 CAPSULE BY MOUTH EVERY 6 HOURS FOR 7 DAYS DIRECTED 08/28 completed Not Available Not Available Not Available metformin 1,000 mg tablet Take 1 tablet twice a day by oral route. 10/03 completed 09/27/18 Dr. Vazquez said for pt to take Metformi n 1,000 mg take 1/2 tab 500 mg po BID d/t reported side effects of increase d dose. Not Available Not Available Not Available glimepiri de 4 mg tablet TAKE 1/2 TO 1 TABLET BY MOUTH TWICE DAILY DEPENDIN G ON PREMEAL SUGARS 12/10 completed Not Available Not Available Not Available losartan 25 mg tablet TAKE ONE TABLET BY MOUTH DAILY AT 9 AM active Not Available Not Available No t Available fentanyl (PF) 50 mcg/mL injection solution 50 microgra ms by injectio n route. 11/26 completed Not Available Not Available Not Available gentamici n 0.1 % topical cream APPLY EXTERNAL LY A SMALL AMOUNT TO THE AFFECTED AREA OF HEEL ULCER THREE TIMES DAILY DIRECTED . 06/12 completed Not Available Not Available Not Available aspirin 81 mg chewable tablet Chew 81 mg by oral route. 11/27 completed Not Available Not Available Not Available zinc gluconate 50 mg tablet Take 1 tablet by oral route. 08/31 completed OTC Not Available Not Available Not Available magnesium 250 mg tablet Take 1 tablet by oral route. 2021 active OTC Not Available Not Available Not Avai lable mupirocin 2 % topical ointment APPLY A SMALL AMOUNT TO THE AFFECTED AREA OF ULCER BY TOPICAL ROUTE 3 TIMES PER DAY 02/17 completed Not Available Not Available Not Available furosemid e 20 mg tablet TAKE 1 TABLET BY MOUTH EVERY DAY 06/12 completed Not Available Not Available Not Available gabapenti n 100 mg capsule TAKE 1 CAPSULE BY MOUTH THREE TIMES DAILY 02/26 completed Pt stopped due to mood swings Not Available Not Available Not Available sodium chloride 0.9 % intraveno us solution 1000 mL by intraven . route. 11/26 completed Not Available Not Available Not Available ergocalci ferol (vitamin D2) 1,250 mcg (50,000 unit) capsule TAKE 1 CAPSULE BY MOUTH EVERY TUESDAY AT 9AM ONE TIME A WEEK 10/16 completed Not Available Not Available Not Available albuterol sulfate HFA 90 mcg/actua tion aerosol inhaler INHALE TWO PUFFS BY MOUTH EVERY 4 HOURS active Not Available Not Available No t Available atropine 1 % eye drops 09/04 completed Not Available Not Available Not Available ondansetr on 4 mg disintegr ating tablet DISSOLVE 1 TABLET ON THE TONGUE EVERY 8 HOURS NEEDED FOR NAUSEA 10/16 completed Not Available Not Available Not Available metformin ER 500 mg tablet,ex tended release 24 hr TAKE 1 TABLET BY MOUTH EVERY DAY 03/02 completed I am not on Metformi n no more, my kidney doctor took me off of it Not Available Not Available Not Available heparin (porcine) 5,000 unit/mL injection solution 5000 unts by injectio n route. 11/26 completed Not Available Not Available Not Available calcitrio l 0.25 mcg capsule TAKE ONE CAPSULE BY MOUTH ONCE DAILY active Not Available Not Available No t Available glucosami ne-chondr oit-vit C-Mn 750 mg-600 mg-55 mg-5 mg tablet Take 1 tablet by oral route. 08/31 completed Not Available Not Available Not Available naproxen 500 mg tablet Take 1 tablet twice a day by oral route. 09/25 completed Not Available Not Available Not Available diazepam 5 mg tablet TAKE 1/2 (ONE HALF) TABLET BY MOUTH TWICE A DAY NEEDED 09/25 completed Not Available Not Available Not Available amoxicill in 500 mg-potass ium clavulana te 125 mg tablet TAKE 1 TABLET BY MOUTH EVERY 12 HOURS UNTIL ALL TAKEN 02/26 completed Not Available Not Available Not Available midazolam 1 mg/mL injection solution 2 mg by injectio n route. 11/26 completed Not Available Not Available Not Available iron 18 mg tablet Take 1 tablet by oral route. 11/27 completed Not Available Not Available Not Available escitalop lisa 10 mg tablet TAKE ONE TABLET BY MOUTH DAILY AT 9 AM active Not Available Not Available No t Available Vitamin D3 25 mcg (1,000 unit) tablet Take 1 tablet every day by oral route as directed for 30 days. 2020 active Not Available Not Available Not Avai lable metformin ER 1,000 mg tablet,ex tended release 24hr (osmotic) Take 1 tablet every day by oral route. 11/01 completed Not Available Not Available Not Available magnesium OTC once a day 12/10 completed Not Available Not Available Not Available iron Once a day (OTC) 11/27 completed Not Available Not Available Not Available Glucosami ne 08/14 completed Not Available Not Available Not Available apple cider vinegar 12/10 completed Not Available Not Available Not Available metformin ER 500 mg 24 hr tablet,ex tended release (gastric retention ) Take 1 tablet by oral route. 11/27 completed Not Available Not Available Not Available Januvia 100 mg tablet Take 1 tablet every day by oral route. 10/30 completed Not Available Not Available Not Available metformin ER 1,000 mg 24 hr tablet,ex tended release (gastric reten.) TAKE 1 TABLET BY MOUTH EVERY DAY 11/01 completed Changed to Metformi n ER 500 mg tabs- take 2 tabs 1,000 mg po QD d/t insuranc e coverage . Not Available Not Available Not Available heparin (porcine) (PF) 1,000 unit/500 mL in 0.9 % sodium chloride IV 1000 unts by intraven . route. 11/26 completed Not Available Not Available Not Available fenofibra te 54 mg tablet TAKE ONE TABLET BY MOUTH DAILY AT 9 AM IN THE MORNING active Not Available Not Available No t Available Trueresul t Blood Glucose System kit 08/14 completed Not Available Not Available Not Available D3-2000 50 mcg (2,000 unit) capsule 1 capsule by oral route. 2021 active Not Available Not Available Not Avai lable OneTouch Verio test strips TEST BLOOD SUGARS TWICE DAILY DIRECTED active Not Available Not Available No t Available Farxiga 10 mg tablet 12/05 completed Not Available Not Available Not Available Farxiga 5 mg tablet TK 1 T PO QD 09/25 completed Not Available Not Available Not Available guaifenes in ER 600 mg tablet, extended release 12 hr TAKE 1 TABLET BY MOUTH TWICE DAILY 10/16 completed Not Available Not Available Not Available Jardiance 25 mg tablet TAKE ONE TABLET BY MOUTH DAILY AT 9 AM 2024 active Not Available Not Available Not Avai lable Trulicity 1.5 mg/0.5 mL subcutane ous pen injector ADMINIST ER 1.5 MG UNDER THE SKIN EVERY WEEK AT DINNER 12/10 completed Not Available Not Available Not Available Trulicity 0.75 mg/0.5 mL subcutane ous pen injector Inject 0.75 mg every week by subcutan eous route as directed for 84 days, for Diabetes . 2023 active Not Available Not Available Not Avai lable OneTouch Verio Meter USE TO TEST BLOOD SUGAR TWICE DAILY 2018 active Not Available Not Available Not Avai lable magnesium 400 mg (as magnesium oxide) tablet Take 1 tablet every day by oral route as directed for 30 days. 12/05 completed Not Available Not Available Not Available turmeric 08/31 completed Not Available Not Available Not Available OneTouch Delica Plus Lancet 33 gauge USE TO TEST BLOOD SUGAR TWICE DAILY active Not Available Not Available No t Available FreeStyle Deepika 2 Sensor kit CHANGE EVERY 14 DAYS active Not Available Not Available No t Available Trulicity 3 mg/0.5 mL subcutane ous pen injector INJECT 3MG SUBCUTAN EOUSLY ONCE EVERY WEEK AT DINNER (BULK) 08/31 completed Not Available Not Available Not Available Vitals Date Recorded Body height Body mass index (BMI) Body weight Heart rate Oxygen saturation Respiratory rate Body temperature Systolic And Diastolic Provider Name and Address Organization Details Last Updated DateTime 4 157.48 cm 27.2 kg/m2 76654.9 g 84 /min 96 % 18 /min 98.3 [degF] 110/70 mm[Hg] Verona Blevisn MA [facility] 4 14:42:09 Date Recorded Body height Respiratory rate Heart rate Oxygen saturation Body temperature Systolic And Diastolic Provider Name and Address Organization Details Last Updated DateTime 5 157.48 cm 14 /min 82 /min 97 % 98 [degF] 140/76 mm[Hg] Verona Blevins MA [facility] 5 16:04:03 Date Recorded Body height Body mass index (BMI) Body weight Oxygen saturation Respiratory rate Heart rate Systolic And Diastolic Provider Name and Address Organization Details Last Updated DateTime 3 157.48 cm 27.9 kg/m2 87879.4 8 g 98 % 16 /min 70 /min 112/60 mm[Hg] Verona Blevins MA [facility] 3 14:06:03 Date Recorded Body height Respiratory rate Heart rate Oxygen saturation Systolic And Diastolic Provider Name and Address Organization Details Last Updated DateTime 4 157.48 cm 16 /min 80 /min 98 % 140/70 mm[Hg] Veorna Blevins [place] - [facility] 14:51:53 Date Recorded Body height Heart rate Oxygen saturation Systolic And Diastolic Provider Name and Address Organization Details Last Updated DateTime 03/02/2023 157.48 cm 76 /min 98 % 120/76 mm[Hg] Verona Blevins [place] [facility] 03/02/2023 14:37:27 Social History Question Answer Notes LastModified by Organizat ion Details LastModified Time Tobacco Smoking Status Former Smoker Quit 01/05/2024 Restarted 07/2024 Renato Stern MD Attn: Accounting,[address] [facility], [place], [address], [facility] 10/16/2024 16:14:17 Do You Have An Advance Directive? Yes Information not available 04/11/2014 What Is Your Level Of Caffeine Consumption? Moderate Information not available 04/11/2014 How Much Tobacco Do You Chew? None Information not available 04/11/2014 What Type Of Diet Are You Following? DIABETIC Information not available 04/11/2014 Which Illicit Or Recreational Drugs Have You Used? 20 Information not available 04/11/2014 Education 2 Year College Information not available 04/11/2014 Are There Any Guns Present In Your Home? No Information not available 04/11/2014 Hard Of Hearing Or Deaf In One Or Both Ears? No Information not available 04/11/2014 Legally Blind In One Or Both Eyes? No Information not available 04/11/2014 Marital Status Single Informatio n not available 04/11/2014 What Was The Date Of Your Most Recent Tobacco Screening? 01/26/2024 Information not available 01/26/2024 What Is Your Current Pack Years? 30ormorepack years Information not available 10/16/2024 Performs Monthly Self-breast Exam? Yes Information not available 04/11/2014 Seat Belts Used Routinely Yes Information not available 04/11/2014 Smoke Alarm In Home Yes Information not available 04/11/2014 At What Age Did You Start Smoking Tobacco? 19 Information not available 04/11/2014 How Much Tobacco Do You Smoke? 0.5 PPD Information not available 04/11/2014 General Stress Level Medium Information not available 04/11/2014 Do You Use Sunscreen Routinely? No Information not available 04/11/2014 Has Tobacco Cessation Counseling Been Provided? Yes Information not available 09/25/2020 On What Date Was Tobacco Cessation Counseling Provided? 01/26/2024 Information not available 01/26/2024 How Many Years Have You Smoked Tobacco? 40 Information not available 10/16/2024 Sex: Female Functional Status Question Answer Note LastModified by Organizat ion Details LastModified Time Do you or have you ever used any other forms of tobacco or nicotine? No Information not available 03/02/2023 What is your level of alcohol consumption? Occasional Information not available 04/11/2014 What is your occupation? [email or web address] Information not available 02/22/2024 What is your exercise level? Occasional Information not available 04/11/2014 Mental Status None recorded. Family History Relationship Description Onset Age of this Age Resolved Age Notes LastModified by Organization Details LastModified Time Mother Asthma asavala Not available 14:21:13 Mother Diabetes mellitus asavala Not available 2014 14:21:13 Mother Diabetes mellitus [email or web address] Not available 2018 15:36:18 Sister Asthma asavala Not available 14:21:13 Sister Diabetes mellitus asavala Not available 2014 14:21:13 Father Heart disease [email or web address] Not available 2018 15:36:18 Paternal Grandfather Heart disease [email or web address] Not available 2018 15:36:18 Medical History Condition Response Diabetes Y Other Y Obesity Y Hyperlipidemia Y Gynecological HistoryNo gynecological history recorded. Obstetrics History GPAL:G 0 P 0 0 0 0 Immunizations Vaccine Type Date Status Note Provider Nam e and Address Organization Details Recorded Time Influenza, split virus, quadrivalent, PF 0 completed Not Available [facility] 02/03/2023 04:54:04 Hep B, adult 1 completed Not Available [facility] 02/03/2023 04:54:04 Hep B, adult 1 completed Not Available [facility] 02/03/2023 04:54:04 Hep B, adult 1 completed Not Available [facility] 02/03/2023 04:54:04 Influenza, split virus, trivalent, preservative 5 completed Not Available [facility] 02/03/2023 04:54:04 Influenza, split virus, quadrivalent, preservative 0 completed Not Available [facility] 02/03/2023 04:54:04 pneumococcal polysaccharide PPV23 1 completed Renato Stern MD Attn: Accounting,[address] [place], [address], [facility] 09/25/2020 15:19:07 Tdap 1 completed Renato Stern MD Attn: Accounting,204 1 [place], [place], [address] [place] [address], [facility] 09/25/2020 15:21:44 Influenza, split virus, quadrivalent, preservative 1 completed Verona Blevins MA null, [place] - [facility] 12/05/2020 12:29:09 Influenza, split virus, quadrivalent, preservative 2 completed Verona Blevins [place] null, [place] [facility] 02/26/2022 10:35:34 Influenza, split virus, trivalent, preservative 4 completed Renato Stern MD Attn: Accounting,[address] [place], [place], [address] [place] [address], [facility] 01/27/2024 10:26:22 Pneumococcal conjugate PCV20, polysaccharide [id number] conjugate, adjuvant, PF 5 completed Verona Blevins MA null, [place] - [facility] 10/16/2024 16:53:43 Past Encounters Encounter ID Performer Location Encounter Start Date Encounter Closed Date Diagnosis/Indication Diagnosis SNOMED-CT Code Diagnosis ICD10 Code Diagnosis IMO Codes Diagnosis Note [id number] Reanto Stern MD [facility] (Adult Med) [address] [place] [address] [phone] 0 04/11/2014 13:55:25 04/11/2014 17:37:03 Influenza vaccine needed [id number] 106 Uncontroll ed type 2 diabetes mellitus 653726889 Check labs, schedule eye exam and she was given a handwritte n script for a glucometer , strips and supplies for once a day testing Vertigo [id number] On Meclizine, better but still needs to take Meclizine bid which is a reduction from the previous TID dose, her CT of the brain was normal. There is suggestion of right otitis media=/- externa. I will treat her with Floxin otic and a Z-renae. She may need further imaging of the brain if there is no improvemen t. General ex amination of patient [id number] Pap is due in September, last MMG 2011? Her old chart will be useful, she has a previous history of an empyema and we will need her old chart to verify whether or not she received the Pneumovax, she definitely needs Prevnar 13. Flu Vaccine today, old chart from storage and last discharge summary from the hospital. Tobacco user [id number] Anup lees was discussed Infection of tooth 805993224 She needs dental care! [id number] MD Mazin Hermosillo [address] [facility] [place] [address] 09/04/2018 15:13:20 09/14/2018 15:53:46 Adult health examination 990106698 Z00.00 Tobacco user 740952282 Z 72.0 Pain in left knee 958194 1122 76914 M25.562 Screening for malignant neoplasm of breast 364887783 Z12.31 Screening for malignant neoplasm of colon 133051996 Z12.11 [id number] MD Mazin Hermosillo [address] IM [address] [facility] [place] [address] 09/18/2018 15:37:36 09/20/2018 15:31:02 Pain in left knee 3054981193 01361 M25.562 Tobacco user 463160619 Z 72.0 Computed t omography result abnormal 766225903 R93.89 CT chest abnormal Vitamin D deficiency 347 87402 E55.9 Uncontroll ed type 2 diabetes mellitus 824630749 E11.65 [id number] MD Mazin Hermosillo [address] IM [address] [facility] [place] [address] 10/30/2018 16:02:10 11/02/2018 08:41:25 Uncontrolled type 2 diabetes mellitus 662474309 E11.65 Unable to take metformin due to severe diarrhea and cannot afford januvia [id number] [facility] [address] [place] [address] 09613[address] 0 09/25/2020 13:48:59 09/29/2020 12:12:55 General examination of patient 488676043 Z00.01 Uncontroll ed type 2 diabetes mellitus 254414207 E11.65 Check labsSchedu le eye examRestar t FarxigaSto p Glimepirid e History of coronary artery bypass grafting 395650070 Z95.1 History of repair of mitral valve 475577386 Z98.890 History of tricuspid valve repair 9960581214 13955 Z98.890 Administra tion of pneumococcal vaccine 42573189 Z23 Immunization advised 310 589501 Z71.9 Nicotine dependence 5629 4008 F17.200 Vitamin D deficiency 347 65709 E55.9 Cardiac pa cemaker in situ 243271395 Z95.0 Ulcer of heel 610966861 L97.409 Edema of l ower extremity 645352812 R60.0 Increase Furosemide back to 40 mg Medication monitoring 39 8835689 Z51.81 Pain of sh oulder region 74493839 M25.519 Screening for malignant neoplasm of colon 102637613 Z12.11 Congestive heart failure 33543863 I50.9 Administra tion of diphtheria, pertussis, and tetanus vaccine 302757795 Z23 [id number] [facility] [address] [place] [address] 78542-126 0 12/05/2020 11:34:50 12/06/2020 10:07:39 Cardiac pacemaker in situ 371935110 Z95.0 Uncontroll ed type 2 diabetes mellitus 730915429 E11.65 Schedule eye examContin ue JardianceL ow dose Glimepirid eEndocrino logist to see Needs infl uenza immunization 341127238 Z28.3 Screening for malignant neoplasm of breast 222352955 Z12.39 Screening for malignant neoplasm of colon 946104864 Z12.11 [id number] MD Gal Bonilla (Adult Med) [address] [place] [address] 01805-083 0 02/17/2021 11:19:24 02/17/2021 12:33:31 Screening for malignant neoplasm of cervix 353642025 Z12.4 Uncontroll ed type 2 diabetes mellitus 341549235 E11.65 Schedule eye examContin ue JardianceI ncrease Glimepirid e to 2 mg with meals, side effects were discussedE ndocrinolo gist to see, she should stop by their office to schedule an appointmen t Dyspnea on exertion 6084 5006 R06.09 Possiible COPDPFT reports from [facility] neededCont inue Albuterol Pain in coccyx 50598050 M53.3 [place] [id number] MD Gal Bonilla (Adult Med) [address] [place] [address] 36828-915 0 06/12/2021 09:34:23 06/15/2021 10:29:03 Bleeding from nose 654936541 R04.0 LabsPackin g in placeENT Uncontroll ed type 2 diabetes mellitus 745207495 E11.65 Schedule eye examContin ue Jardiance and Glimepirid e 2 mg with meals.Star t Repaglinid eShe cannot tolerate MetforminE ndocrinolo gist to see as referred. She has had a CABG X 3 and now a BKA.LabsFo llow up Amputated below knee 299 084038 Z89.519 Pain management , her need for Hydrocodon e is intermitte nt, phantom pain? AddendumXr ay right BKA stump Medication monitoring 39 3989300 Z51.81 HIV screening 383886533 Z11.4 SARS-CoV-2 antigen vaccine declined 4258458594 Z28.21 [id number] MD Gal Bonilla (Adult Med) [address] [place] [address]682-352 0 08/14/2021 09:54:00 08/18/2021 07:17:45 Wound of skin 533971909 T14.8XXS Start Bactrim/Ce phalexin pending the wound cultureWou wy clinic Non-compli ant behavior 745670850 R46.89 Ulcer of foot 10155844 L 97.683 [id number] Renato Stern MD [facility] (Adult Med) [address] [place] [address] 75912-037 0 08/28/2021 10:34:35 09/01/2021 09:20:45 Wound of skin 316411407 T14.8XXS She has completed the course of Bactrim/Ce phalexin and the wound culture was negative. Ulcer of foot 62036015 L 97.929 Improving Bradycardia 75420904 R00 .1 Most likely due to her BBShe has a PM in situ Amputated below knee 299 566840 Z89.519 She will benefit from prosthesis Uncontroll ed type 2 diabetes mellitus 977477109 E11.65 Continue Jardiance and Glimepirid e 2 mg with meals.Uncl ear why she never started the Repaglinid eShe cannot tolerate MetforminE ndocrinolo gist to see on 10/01/2021 s referred. She has had a CABG X 3 and now a BKA. [id number] MD Gal Bonilla (Adult Med) [address] [place] [address] 34117-625 0 11/27/2021 11:26:20 11/30/2021 18:02:21 Uncontrolled type 2 diabetes mellitus 916068592 E11.65 On Jardiance, Glimepirid e 2 mg with meals, Metformin and TrulicityU nder the care of the Endocrinol ogist.Labs have been ordered. History of coronary artery bypass grafting 705072707 Z95.1 Coronary arteriosclerosis 03349953 I25.10 Screening for malignant neoplasm of colon 608693091 Z12.11 Impaired mobility 861693 05 Z74.09 The handicappe d placard form was completed. [id number] Ren[facility] [address] [place] [address] 96236-638 0 02/26/2022 09:24:49 03/02/2022 14:31:34 Administration of influenza vaccine 45411950 Z23 Uncontroll ed type 2 diabetes mellitus 363752513 E11.65 HBA1C 8.6On Jardiance, Glimepirid e 2 mg with meals, Metformin and TrulicityU nder the care of the Endocrinol ogist.Labs have been ordered. Screening for malignant neoplasm of colon 366558638 Z12.11 Medication monitoring 39 0104264 Z51.81 Screening for malignant neoplasm of breast 769608317 Z12.39 Screening for malignant neoplasm of cervix 033210868 Z12.4 Amputated below knee 299 090176 Z89.519 She will benefit from right below knee prosthesis [id number] MD Gal Bonilla (Adult Med) [address] [place] [address] 01504-839 0 12/10/2022 13:28:20 12/14/2022 09:08:48 Uncontrolled type 2 diabetes mellitus 822210766 E11.65 Labs 02/26/2022 HBA1C 6.1% OV 02/26/2022 HBA1C 8.6On Jardiance, Glimepirid e 2 mg with meals, Metformin and TrulicityU nder the care of the Endocrinol ogist.Labs have been ordered. Screening for malignant neoplasm of colon 860291704 Z12.11 Chronic anemia 989919355 D64.9 Labs 11/24/2022 Hb 9.1, HCT 28 Note from 03/01/2022 Labs 02/26/2022 Hb 9.9 DIAGNOSIS/ Hct 30Labs 08/14/2021 Hb 10 / Hct 33Cologuar d ordered & eferr ed to GI 09/25/2020 & 12/05/2020 nemia workup Administra tion of influenza vaccine 02754934 Z23 Type 2 isaiah betes mellitus without complication 627822948 E11.9 Nausea 652685095 R11.0 DDX; Meds?, metabolic? , GI? Vitamin D deficiency 347 00840 E55.9 History of coronary artery bypass grafting 824930326 Z95.1 Chronic vertigo 90686734 11 9105 R42 Screening for malignant neoplasm of breast 523581542 Z12.39 SARS-CoV-2 mRNA vaccine declined 2983569346 Z28.21 Peripheral arterial occlusive disease 394734883 I73.9 Medication review done by doctor 019063185 Z76.89 All her medication s were confirmed except the Escitalopr am. [id number] MD Gal Bonilla (Adult Med) [address] [place] [address] 12423-987 0 03/02/2023 14:23:22 03/07/2023 11:25:06 Uncontrolled type 2 diabetes mellitus 160090003 E11.65 Labs as ordered OV 12/10/2022L abs 02/26/2022 HBA1C 6.1% OV 02/26/2022 HBA1C 8.6On Jardiance, Glimepirid e 2 mg with meals, Metformin and TrulicityU nder the care of the Endocrinol ogist.Labs have been ordered. Chronic anemia 831069964 D64.9 Labs as ordered OV 12/10/2022L abs 11/24/2022 Hb 9.1, HCT 28 Note from 03/01/2022 Labs 02/26/2022 Hb 9.9 DIAGNOSIS/ Hct 30Labs 08/14/2021 Hb 10 / Hct 33Cologuar d ordered & eferr ed to GI 09/25/2020 & 12/05/2020 nemia workup Medication review done by doctor 503876957 Z76.89 All her medication s were confirmed. Influenza vaccination declined 669001930 Z28.21 Immunization advised 310 245570 Z71.9 Shingrix at her local pharmacy as we do not stock this. Nicotine dependence 5629 4008 F17.200 Screening for malignant neoplasm of cervix 549724457 Z12.4 [id number] Renato Stern MD [facility] (Adult Med) [address] [place] [address] [phone] 0 09/01/2023 14:23:29 09/02/2023 09:23:26 Uncontrolled type 2 diabetes mellitus 423707883 E11.65 Uncontroll ed DM, HBA1C 7.8% on 08/30/2023S he stopped her Trulicity 3 mg weekly due to nauseaShe has no history of Thyroid cancerEndo crinologyR estart Trulicity at a lower dose 0.75 mg, GI side effects were discussed including pancreatit is. OV 03/02/2023 Labs as ordered OV 12/10/2022L abs 02/26/2022 HBA1C 6.1% OV 02/26/2022 HBA1C 8.6On Jardiance, Glimepirid e 2 mg with meals, Metformin and TrulicityU nder the care of the Endocrinol ogist.Labs have been ordered. Chronic anemia 101361843 D64.9 The DDX includes anemia from her CRF and a GI source. She has lost some weight as well and even though the Trulicity may explain that she needs a GI evaluation .Labs 08/30/2023 Hb 10, Hct 32Labs 11/24/2022 Hb 9.1, HCT 28Labs 02/26/[address] negative 4Re ferred to GI 09/25/2020 & 12/05/2020 Medication review done by doctor 324044916 Z76.89 All her medication s were confirmed, she did not have her Carvedilol with her Screening for malignant neoplasm of breast 229367758 Z12.31 Unexplaine d weight loss 857843311 R63.4 Trulicity? MMG -ve 02/01/2023 Cologuard -ve 04/25/2023 Amputated right lower limb below knee 831305953 Z89.246 [id number] Renato Stern MD [facility] (Adult Med) [address] [place] [address] 47378-853 0 01/26/2024 14:34:18 01/27/2024 07:43:18 Administration of influenza vaccine 57529496 Z23 Uncontroll ed type 2 diabetes mellitus 101657180 E11.65 Still unable to tolerate the lower dose of Trulicity, unfortunat liang, her HBA1C is now 7.8% and she is yet to establish care with the endocrinol ogist.Endo crinologyP odiatrist OV 09/01/2023U ncontrolle d DM, HBA1C 7.8% on 08/30/2023S he stopped her Trulicity 3 mg weekly due to nauseaShe has no history of Thyroid cancerEndo crinologyR estart Trulicity at a lower dose 0.75 mg, GI side effects were discussed including pancreatit is. OV 03/02/2023 Labs as ordered OV 12/10/2022L abs 02/26/2022 HBA1C 6.1% OV 02/26/2022 HBA1C 8.6On Jardiance, Glimepirid e 2 mg with meals, Metformin and TrulicityU nder the care of the Endocrinol ogist.Labs have been ordered. Chronic anemia 472840345 D64.9 Labs 01/17/2024 Hb 8.6, HCT 27 AddendumGI as referred OV 09/01/2023T he DDX includes anemia from her CRF and a GI source. She has lost some weight as well and even though the Trulicity may explain that, she needs a GI evaluation .Labs 08/30/2023 Hb 10, Hct 32Labs 11/24/2022 Hb 9.1, HCT 28Labs 02/26/[address] negative 4Re ferred to GI 09/25/2020 & 12/05/2020 Medication review done by doctor 025058079 Z76.89 All her medication s were confirmed. Unexplaine d weight loss 135063278 R63.4 OV 09/01/2023T rulicity?M MG -ve 02/01/2023 Cologuard -ve 04/25/2023 Amputated right lower limb below knee 438474543 Z89.511 Nicotine dependence 5629 4008 F17.200 Screening mammography of bilateral breasts 6329585730 98670 Z12.31 [id number] Renato Stern MD [facility] (Adult Med) [address] [place] [address] 37954-858 0 10/16/2024 15:51:00 10/17/2024 08:49:57 Uncontrolled type 2 diabetes mellitus 207655537 E11.65 Labs 02/15/2024 HBA1C 7.9%On Glimepirid e and Jardiance OV 01/26/2024 Still unable to tolerate the lower dose of Trulicity, unfortunat liang, her HBA1C is now 7.8% and she is yet to establish care with the endocrinol ogist.Endo crinologyP odiatrist OV 09/01/2023U ncontrolle d DM, HBA1C 7.8% on 08/30/2023S he stopped her Trulicity 3 mg weekly due to nauseaShe has no history of Thyroid cancerEndo crinologyR estart Trulicity at a lower dose 0.75 mg, GI side effects were discussed including pancreatit is. OV 03/02/2023 Labs as ordered OV 12/10/2022L abs 02/26/2022 HBA1C 6.1% OV 02/26/2022 HBA1C 8.6On Jardiance, Glimepirid e 2 mg with meals, Metformin and TrulicityU nder the care of the Endocrinol ogist.Labs have been ordered. Chronic anemia 065340862 D64.9 Labs OV 01/26/2024 Labs 01/17/2024 Hb 8.6, HCT 27 AddendumGI as referred OV 09/01/2023T he DDX includes anemia from her CRF and a GI source. She has lost some weight as well and even though the Trulicity may explain that, she needs a GI evaluation .Labs 08/30/2023 Hb 10, Hct 32Labs 11/24/2022 Hb 9.1, HCT 28Labs 02/26/[address] negative 04/25/2023e ferred to GI 09/25/2020 & 12/05/2020 History of nicotine dependence 5087430565 56296346 Z87.979 8618581 Requires v accination against Streptococcus pneumoniae 4594647494 Z23 662844 History of coronary artery bypass grafting 509081714 Z95.1 Therapeuti c drug monitoring assay 46562950 Z51.81 877449 Health Concerns Section Related Observation LastModified by Organization Detai ls LastModified Time None Recorded Concern Status LastModified by Organization Details LastModified Time None Recorded Advance Directives Directive Y: Payers Insurance Date Sequence Insurance Name Policy Number Policy [place] Covered Member ID [place] Member ID Guarantor Name 12/10/2022 1 [facility] PRIOR TO 10/19/2024 (MEDICAID REPLACEMENT - HMO) [id number] Audrey Stuart [id number] Audrey Stuart 12/10/2022 1 [place] Audrey Stuart [id number] Audrey Stuart 12/10/2022 1 [facility] (PPO) [id number] Audrey Stuart [id number] Audrey Stuart 12/10/2022 2 [facility] (MEDICAID HMO) [id number] Audrey Stuart [id number] Audrey Stuart 02/10/2025 2 [place]CON[place] WHEN MEDICARE OR MEDICARE REPLACEMENT PRIMARY) Audrey Stuart [id number] Audrey Stuart 12/14/2022 3 [place] Audrey Stuart [id number] Audrey Stuart 01/25/2023 2 [facility] Audrey Stuart [id number] uAdrey Stuart 02/10/2025 1 [facility] (MEDICARE REPLACEMENT/A DVANTAGE - HMO) [id number] Audrey Stuart [id number] Audrey Stuart Notes Date Note Type Note Provider Name and Address Organization Details Recorded Time 12/10/2022 text/html NauseaReported b y PatientHPIFor quality, patient reportsworsening. For severity, patient reportssevere. For duration, patient reportspresent for 6-12 months. For onset/timing, patient reportsstill present. For context, patient reportsno drug/alcohol abuse,no one else with similar symptoms,no recent camping,no recent picnic,no possible food sources, andno well water. For aggravating factors, patient reportsnothing makes it worse. For associated symptoms, patient reportsno abdominal pain,no excess gas,no fever,no cholesterol issues,no diarrhea,no vomiting,no dry heaves,no heartburn,no fatigue,no weakness,no weight loss,no weight gain,no muscle aches,no muscle weakness, andno nutrient deficiency. For alleviating factors, (pepsi). Diabetes F/UReported by PatientHPIFor context, patient reportsnormal range of home blood sugars (in the low 100s),seeing eye doctor regularly, andchecking feet regularly. For associated symptoms, patient reportsno weight gain,no weight loss,no dizziness,no sweats,no headaches,no confusion,no increased thirst,no increased appetite,no increased urination,no blurred vision,no numbness of feet, andno calluses on feet.ROS as noted in the HPI I just got nauseous all of a suddenI stay nauseousJust check up Ms Stuart returns, she has been doing relatively well but complains of chronic nausea without vomiting, abdominal pain or diarrhea. She has not identified any precipitating factors but Pepsi seems to be the only thing that helps. She is not on any new medications and takes nothing else other than what is on her list. She was recently seen by her food and beverage director and was advised to stop her Pepsi habit which she did. She has a history of vertigo although her nausea is unrelated to her central symptoms. She has not seen her furniture sprayer or cut off tender glass in a while. Renato Stern MD Attn: Accounting,[address] [facility], [place], [address], [facility] 12/10/2022 19:53:39 03/02/2023 text/html Diabetes F/URepo rted by PatientHPIFor review finger sticks, patient reportsfastin. For labs, patient reportslast a1c result: 6.1. For context, patient reportsnormal range of home blood sugars (in the low 100s),seeing eye doctor regularly,checking feet regularly,taking aspirin daily,not missing doses of medications, andno side effects from medications. For associated symptoms, patient reportsno weight gain,no weight loss,no dizziness,no sweats,no headaches,no confusion,no increased thirst,no increased appetite,no increased urination,no blurred vision,no numbness of feet, andno calluses on feet.ROS as noted in the HPI Here with a gentleman. Check up Ms Stuart is doing well, unfortunately, she has started smoking again. In the interim, she had abnormal arterial studies of the LE and will be seeing her furniture sprayer soon. Renato Stern MD Attn: Accounting,[address] [facility], [place], [address], [facility] 03/02/2023 15:04:43 09/01/2023 text/html Diabetes F/URepo rted by PatientHPIFor associated symptoms, patient reportsweight loss (3 lbs)but reportsno weight gain,no dizziness,no sweats,no headaches,no confusion,no increased thirst,no increased appetite,no increased urination,no blurred vision,no numbness of feet, andno calluses on feet. For labs, patient reportslast a1c result: 7.8. For context, patient reportsnormal range of home blood sugars (in the low 100s),seeing eye doctor regularly, andchecking feet regularly. Medicare Annual Wellness VisitReported by PatientSocial/Behavio ral HistoryFor physical activity, patient reportsdoes not exercise on a regular basisbut reportsgood physical condition. For diet and nutrition, patient reportshealthy diet. For fracture risk, patient reportsno history of fractures,no recent explained fracture,no sudden unexplained fractures, andno previous musculoskeletal injuries.Mental Status:For depression risk, patient reportsnever feels sad, empty, or tearful,no loss of interest in activities,no significant changes in weight,no sleep disturbances or insomnia,no agitation,no loss of energy,no feelings of worthlessness or guilt,no thoughts of suicide,no history of depression, andno history of mood disorders. For orientation, patient reportsno disorientation to time,no disorientation to date, andno disorientation to place. For concentration and memory, patient reportsno decreased concentrating ability,no memory lapses or loss, anddoes not forget words. For speech/motor difficulties, patient reportsno speech difficulties,no difficulty expressing formulated concepts,no difficulty with fine manipulative tasks,no difficulty writing/copying,no slowed reaction time, anddoes not knock things over when trying to pick them up.Functional AbilityFor instrumental activities of daily living, patient reportsunable to do house work without assistancebut reportsable to grocery shop with limited or no assistance,able to manage medications with limited or no assistance,able to manage money with limited or no assistance,able to prepare meals with limited or no assistance, andable to use the phone with limited or no assistance. For hearing, patient reportsno loss of hearing. For vision, patient reportsno vision problems. For activities of daily living, patient reportsable to bathe with limited or no assistance,able to contol urination and bowels,able to dress with limited or no assistance,able to feed self with limited or no assistance,able to get out of chair or bed with limited or no assistance,able to groom with limited or no assistance, andable to toilet with limited or no assistance. For falls risk assessment, patient reportsno fall in the past yearandno dizziness/vertigo. For home safety, patient reportsno unsafe stephane hazzards,no unsafe stairs,no unsafe gas appliances,working smoke/co detectors,wears protective head gear for biking/high velocity,use of seatbelts,no vision or hearing loss while driving,no fire arms,has hand bars in the bathroom/shower, andgood lighting in the home.ROS as noted in the HPI Accompanied by a gentleman I quit taking the Trulicity, I was in bed puking and ....Rachael López Ms Stuart is better, she developed vomiting and diarrhea on 3 mg of Trulicity, she stopped it a few weeks ago and she is back to her normal self. Her cut off tender glass is no longer in the local area and she would like to be referred to JULIO Holder who her friend recommended. Renato Stern MD Attn: Accounting,[address] [place], [address], [facility] 09/01/2023 16:40:23 01/26/2024 text/html Diabetes F/URepo rted by PatientHPIFor review finger sticks, patient reportsfasting: <150. For labs, patient reportslast a1c result: 7.8%. For context, patient reportstaking aspirin daily,not missing doses of medications, andno side effects from medications. For associated symptoms, patient reportsno weight gain,no weight loss,no dizziness,no sweats,no headaches,no confusion,no increased thirst,no increased appetite,no increased urination,no blurred vision,no numbness of feet, andno calluses on feet.ROS as noted in the HPI Here with a gentleman Just check up Renato Stern MD Attn: Accounting,[address] [place], [address], [facility] 01/27/2024 10:27:27 10/16/2024 text/html Diabetes F/URepo rted by PatientHPIFor labs, patient reportslast a1c result: 7.9%. For context, patient reportstaking aspirin dailyandnot missing doses of medications. For associated symptoms, patient reportsno weight gain,no weight loss,no dizziness,no sweats,no headaches,no confusion,no increased thirst,no increased appetite,no increased urination,no blurred vision,no numbness of feet, andno calluses on feet.ROS as noted in the HPI Ms Stuart has no complaints Renato Stern MD Attn: Accounting[address] [place], [address], [facility] 10/16/2024 18:09:36 OBGyn Episode No OBEpisode recorded.
[2025-02-26 19:44] VITALS: BP 134/87; PULSE 89; RESP 16; TEMP 36.9; O2SAT 98
== END 2025-02-26 19:47 | disposition home or self-care (01) ==
PROVIDERS: Emergency Provider Emergency Medicine; PCP Internal Medicine Infectious Disease
DX: S42.211A Unspecified displaced fracture of surgical neck of right humerus, initial encounter for closed fracture (principal); W06.XXXA Fall from bed, initial encounter
CPT/HCPCS: 73030; 99284; A4565; A9270

== ENCOUNTER 2025-03-05 11:46 | Outpatient (CLI) | payer MEDICARE, SELFPAY ==
--- OUTSIDE RECORDS SUMMARY | 2023-11-25 09:00 | XMS_ITS ---
Author Organization [facility] Address [address] [address] [place] [address] Care Team Providers Care Nurse Sane Name Role Phone Anurag Carlos Unavailable [phone] Medications Medication SIG (Take, Route, Frequency, Duration) Notes Start Date End Date Status Escitalopram Oxalate 10 mg TAKE ONE TABL ET BY MOUTH DAILY AT 9 AM; Duration: 90 Active Vitamin D (Ergocalciferol) 1.25 MG (43498 UT) TAKE 1 CAPSULE BY MOUTH EVERY TUESDAY AT 9AM ONE TIME A WEEK; Duration: 88 Active Losartan Potassium 25 MG 1 tablet Orally Once a day; Duration: 90 day(s) 06/16/2022 Active Social History Sex Assigned At : Social History Observation Description Sex Assigned At Female Encounters Encounter Location Date Provider Diagnosis [place] [facility] 2043 [facility] 15 [place] [address] 11/25/2023 Carlos Osborn Chronic kidney disease, stage 3 unspecified N18.30 ; Type 2 diabetes mellitus with hyperglycemia E11.65 ; Essential (primary) hypertension I10 ; Proteinuria, unspecified R80.9 ; Heart failure, unspecified I50.9 and Vitamin D deficiency, unspecified E55.9 Assessments Encounter Date Diagnosis (ICD Code) Assessment Notes Treatment Notes Treatment Clinical Notes Section Notes 11/25/2023 Chronic kidney disease, stage 3 unspecified (ICD-10 - N18.30) 11/25/2023 Type 2 diabetes mellitus with hyperglycemia (ICD-10 - E11.65) 11/25/2023 Essential (primary) hypertension (ICD-10 - I10) 11/25/2023 Proteinuria, unspecified (ICD-10 - R80.9) 11/25/2023 Heart failure, unspecified (ICD-10 - I50.9) 11/25/2023 Vitamin D deficiency, unspecified (ICD-10 - E55.9) Plan Of Treatment Next Appt Details Provider Name:Carlos Anurag , 03/08/2025 05:30:00 PM, [address] Katie Ybarra, [facility] 15, [place], [address], Progress Notes * SANJAY GUERRAB:1965 (60 yo M)Acc No.[id number]:11/25/2023 Progress Notes Patient: NANDA GLORIA Provider: Tiny RUFF MD, F.Phu.C.P, F.A.S.N. :1965 A ge:58 Y S ex:Male Date:11/25/2023 Address:[address] [place] [address] [id number] Subjective: * Chief Complaints: * * Medical History: * Medications: T aking Losartan Potassium 25 MG Tablet 1 tablet Orally Once a day , Taking Vitamin D (Ergocalciferol) 1.25 MG (09594 UT) Capsule TAKE 1 CAPSULE BY MOUTH EVERY TUESDAY AT 9AM ONE TIME A WEEK , Taking Escitalopram Oxalate 10 mg Tablet TAKE ONE TABLET BY MOUTH DAILY AT 9 AM Objective: * Vitals: Assessment: * Assessment: 1. C hronic kidney disease, stage 3 unspecified - N18.30 2 . T ype 2 diabetes mellitus with hyperglycemia - E11.65 3 . E ssential (primary) hypertension - I10 4 . P roteinuria, unspecified - R80.9 5 . H eart failure, unspecified - I50.9 6 . V itamin D deficiency, unspecified - E55.9 ? Plan: * Treatment: * Billing Information: * Visit Code: 41960 Office Visit, Est Pt., Level 4. * Procedure Codes: * Electronic signature of Anand Osborn MD on 03/05/2025 at 02:07 PM COMMUNITY INTEGRATION SPECIALIST Sign off status: Pending * Provider: Tiny RUFF MD, Tad.Phu.C.P, F.A.S.N. Date: 0 11/25/2023 Generated for Printing/Faxing/eTransmitting on: 1 05/06/2024 02:07 PM COMMUNITY INTEGRATION SPECIALIST
--- OUTSIDE RECORDS SUMMARY | 2025-02-06 10:30 | XMS_ITS ---
Author Organization [facility] Address [address] [address] [place] [address] Care Team Providers Care Vending Enterprises Supervisor Name Role Phone Anurag Carlos Unavailable [phone] REASON FOR VISIT suresh Social History Sex Assigned At : Social History Observation Description Sex Assigned At Female Problems Problem Type SNOMED Code ICD Code Onset Dates Problem Status W/U Status Risk Notes Problem Metabolic disorder (87912132) Metabolic disorder, unspecified (E88.9) Active confirmed Problem Tobacco use (514450450) Tobacco use (Z72.0) Active confirmed Problem Amputated below knee (103644831) 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) Active confirmed Problem Sick sinus syndrome (42436707) Sick sinus syndrome (I49.5) Active confirmed Problem Cardiac pacemaker in situ (783933152) Presence of cardiac pacemaker (Z95.0) Active confirmed Problem Premature rupture of membranes (26787384) premature rupture of membranes, unspecified as to length of time between rupture and onset of labor, unspecified trimester (O42.919) Active confirmed Encounters Encounter Location Date Provider Diagnosis [place] [facility] 2043 [facility] 15 [place] [address] 02/06/2025 Carlos Osborn Chronic kidney disease, stage [...] Appt Details Provider Name:Carlos Osborn , 03/08/2025 05:30:00 PM, [address], [address], Progress Notes * SANJAY GUERRAB:1965 (60 yo M)Acc No.[id number]:02/06/2025 Progress Notes Patient: NANDA GLORIA Provider: Tiny RUFF MD, F.A.C.P, F.A.S.N. :1965 A ge:59 Y S ex:Male Date:02/06/2025 Address:[address] [place], [place] [id number] Subjective: * Chief Complaints: * 1 . [...] Treatment: * Billing Information: * Visit Code: 84021 Office Visit, New Pt., Level 5. * Procedure Codes: * Electronic signature of Anand Osborn MD on 03/05/2025 at 02:08 PM AIR DEFENSE ARTILLERY OFFICER Sign off status: Pending * Provider: Tiny RUFF MD, F.A.C.P, F.A.S.N. Date: 04/08/2024 Generated for Printing/Faxing/eTransmitting on: 05/06/2024 02:08 PM AIR DEFENSE ARTILLERY OFFICER
--- OUTSIDE RECORDS SUMMARY | 2025-02-22 13:30 | XMS_ITS ---
Author Organization [facility] Address 1400 [facility] 61 [facility] [address] [place] [address] Care Team Providers Care Adult Basic Education Teacher Name Role Phone Anurag Carlos Unavailable [phone] Social History Sex Assigned At : Social History Observation Description Sex Assigned At Female Encounters Encounter Location Date Provider Diagnosis [place] [facility] 2043 [facility] 15 [place] [address] 02/22/2025 Carlos Osborn Plan Of Treatment Next Appt Details Provider Name:Carlos Osborn , 03/08/2025 05:30:00 PM, 2043 [facility] 15, [place], [address], Progress Notes * SANJAY GUERRAB:1965 (60 yo M)Acc No.[id number]:02/22/2025 Progress Notes Patient: NANDA GLORIA Provider: Tiny RUFF MD, Tad.Phu.C.P, F.A.S.N. :1965 A ge:59 Y S ex:Male Date:02/22/2025 Address:[address] [place], [place] [id number] Subjective: * Chief Complaints: Objective: Assessment: Plan: * Billing Information: * Visit Code: * Procedure Codes: * Electronic signature of Anand Osborn MD on 03/05/2025 at 02:08 PM CUFFER Sign off status: Pending * Provider: Tiny RUFF MD, Tad.Phu.C.P, F.A.S.N. Date: 04/25/2024 Generated for Printing/Faxing/eTransmitting on: 1 05/06/2024 02:08 PM CUFFER
[2025-03-05 12:31] LABS: Hematocrit 27.9 % (37.0-47.0); Hemoglobin 8.9 g/dL (12.0-15.0); Immature Granulocyte Percent A 0.5 % (0-0.5); Lymphocytes Absolute Auto 0.85 K/mm3 (0.9-3.2); Mean Corpuscular HGB Conc 31.9 g/dl (32-36); Mean Corpuscular Hemoglobin 30.8 pg (26-34); Mean Corpuscular Volume 96.5 fl (80-100); Nucleated Red Blood Cells Absolute Auto 0.000 K/mm3 (0.0-0.012); Nucleated Red Blood Cells Perc 0.0 % (0.0-0.2); Platelet Count Result 186 k/mm3 (150-375); Red Blood Count 2.89 M/mm3 (4.2-5.4); White Blood Count 6.1 K/mm3 (4.5-10.0)
[2025-03-05 12:51] LABS: Hemoglobin A1C 6.2 % (<5.7)
[2025-03-05 12:58] LABS: Add Urine Microscopic? YES; Alanine Aminotransferase 8 U/L (6-35); Albumin Level 3.8 g/dL (3.5-5.1); Alkaline Phosphatase 86 U/L (38-126); Anion Gap 8 mmol/L (4-12); Appearance Urine Turbid (Clear); Aspartate Amino Transferase 16 U/L (14-36); Bilirubin,Total 0.9 mg/dL (0.2-1.3); Blood Urea Nitrogen 31 mg/dL (7-17); Calcium 9.1 mg/dL (8.4-10.2); Carbon Dioxide 22 mmol/L (22-30); Chloride 108 mmol/L (98-107); Cholesterol 150 mg/dL (0-200); Estimated Glomerular Filt Rate 32; Glucose 146 mg/dL (65-110); Glucose Urine UA 2+ mg/dL (Negative); HDL Direct 37 mg/dL; Leukocyte Esterase Ur 2+ LEU/UL (Negative); Magnesium 2.0 mg/dL (1.6-2.3); Need Manual Microscopic Reviewed; Nitrate Urine Negative (Negative); Non Pathogenic Casts >20; Potassium 4.2 mmol/L (3.4-5.0); Sodium 138 mmol/L (137-145); Specific Grav Ur 1.031 (1.001-1.035); Total Protein 7.1 g/dL (6.3-8.2); Triglycerides 147 mg/dL (<150); Uric Acid 7.3 mg/dL (2.5-7.5)
[2025-03-05 13:09] LABS: Parathyroid Intact 41.5 pg/mL (14.5-75.2)
--- OUTSIDE RECORDS SUMMARY | 2025-03-05 14:08 | XMS_ITS | Clinical Summary ---
Author Organization [facility] Address [address] [facility] [place] [address] Phone Care Team Providers Care Wellness Ambassador Name Role Phone Renzo Castañeda APRN, NETWORK INTERN Primary Care Provider + Allergies No known [...] patient's age to complete this topic [place] [address] [place] [address] Care Teams Wellness Ambassador Relationship Specialty Start Date End Date Renzo Castañeda, SECOND WORKER, NETWORK INTERN [address] [place] [address] [address] [place] [address] PCP - General Internal Medicine 09/22/18
--- OUTSIDE RECORDS SUMMARY | 2025-03-05 14:08 | XMS_ITS | Clinical Summary ---
Author Organization [facility] Address [address] [place] [address] Care Team Providers Care Plate Cleaner Name Role Phone Ronnell Smith MD Primary Care Provider [phone] Social History Tobacco Use Types Packs/Day Years [...] patient's age to complete this topic Insurance [facility] Care Teams Plate Cleaner Relationship Specialty Start Date End Date Ronnell Smith MD PCP - General INTERNAL MEDICINE 11/29/19
--- OUTSIDE RECORDS SUMMARY | 2025-03-05 14:08 | XMS_ITS | Clinical Summary ---
Author Organization [facility] Address [address] [place] [address] Care Team Providers Care Boring Machine Set Up Operator Jig Name Role Phone Ronnell Smith MD Primary Care Provider + [phone] Allergies No known active allergies Medications albuterol HFA (PROVENTIL HFA,VENTOLIN HFA,PROAIR HFA) 90 mcg/actuation inhaler albuterol sulfate HFA 90 mcg/actuation aerosol inhaler INHALE 2 PUFFS BY MOUTH EVERY 4 HOURS Active atorvastatin (LIPITOR) 20 mg tablet Take 20 mg by mouth daily with dinner 0 Active OneTouch Verio test strips strip USE TO TEST BS BID 0 Active blood-glucose meter (OneTouch Verio Meter) [facility] OneTouch Verio Meter USE TO TEST BS ONCE DAILY Active lancets 33 gauge [facility] OneTouch Delica Plus Lancet 33 gauge USE [...] Diagnosed Date Coronary artery disease invo lving blackfeet heart without angina pectoris 05/26/2020 Overview (05/26/2020): Added automatically from request for surgery [id number] Lightheadedness 01/10/2020 Assessment & Plan (02/11/2020 9:22 AM FREIGHT UNLOADER): Patient has undergone MRA brain which demonstrates [...] 01/10/2020 Assessment & Plan (02/11/2020 9:21 AM FREIGHT UNLOADER): Patient describes continued episodic headaches with clear [...] 01/10/2020 Assessment & Plan (02/11/2020 9:21 AM FREIGHT UNLOADER): Patient has history of peripheral neuropathy in [...] any clubs o r organizations such as hinduism groups, unions, fraternal or athletic groups, or [...] on file Legal Sex Female 1:13 AM FREIGHT UNLOADER Gender Identity Not on file Sexual Orientation [...] on file Medical Devices Implanted Type Area Santa'S Helper Device Identifier Shelf Expiration Date Model / Serial / Lot [employer] [id number] Solia S 53cm Steroid Elute Bipolar Active Fixation Endocardial - [id number] - [id number] Implanted:Qty: 1 on 06/06/2020 by Omero Osullivan MD at [facility] Lead [employer] [id number] 02/17/2022 [id number] / [id number] 90 / [employer] [id number] Solia S 45cm Bipolar Active Fixation Lead Pacing Steroid Eluting - [id number] - [id number] Implanted:Qty: 1 on 06/06/2020 by Omero Osullivan MD at [facility] Lead [employer] [id number] 02/17/2022 [id number] / [id number] 97 / [employer] [id number] Edora Promri 34q72k8.5mm Dual Chamber Rate Adaptive Unipolar Bipolar - [id number] - [id number] Implanted:Qty: 1 on 06/06/2020 by Omero Osullivan MD at [facility] Pacemaker [employer] [id number] 08/18/2021 [id number] / [id number] / [employer] [id number] Didier-Mcca rthy-Smith Imr Etlogix 28mm 3d Reduced Curvature - [id number] - [id number] Implanted:Qty: 1 on 06/02/2020 by Hosea Carreon MD at [facility] N/A: Heart [employer] 02/16/2025 [id number] / [id number] / Description:Mitral ring [employer] [id number] Ozzy soriano Physio 28mm Tricuspid Ring Annuloplasty Heart - [id number] - [id number] Implanted:Qty: 1 on 06/02/2020 by Hosea Carreon MD at [facility] N/A: Heart [employer] 02/04/2025 [id number] / [id number] / Description:Tricuspid ring Insurance [facility] MEDICARE ADVANTAGE IDPA IDPA [facility] MEDICARE ADVANTAGE IDPA Advance Directives For more information, please contact: [phone] * Full Code (Latest Code Status on File) Date Activated Date Inactivated Comments 06/02/2020 4:51 PM 06/09/2020 10:02 PM * Full Code Date Activated Date Inactivated Comments 05/21/2020 3:35 PM 05/24/2020 6:03 PM Care Teams Boring Machine Set Up Operator Jig Relationship Specialty Start Date End Date Ronnell Smith MD PCP - General Internal Medicine 02/11/20
[2025-03-05 14:12] LABS: Total Protein Urine Random > 600 mg/dL
[2025-03-06 07:09] LABS: eGFR 22 (>59)
[2025-03-06 11:09] LABS: Chloride, Urine 31 mmol/L (Not Estab.)
[2025-03-06 23:07] LABS: Osmolality, Urine 478 mOsmol/kg (.)
== END 2025-03-05 11:47 | disposition home or self-care (01) ==
PROVIDERS: PCP Internal Medicine Infectious Disease; Visit Provider Specialist
DX: I12.9 Hypertensive chronic kidney disease with stage 1 through stage 4 chronic kidney disease, or unspecified chronic kidney disease (principal); N18.4 Chronic kidney disease, stage 4 (severe); E78.5 Hyperlipidemia, unspecified; E55.9 Vitamin D deficiency, unspecified; D64.9 Anemia, unspecified; E21.3 Hyperparathyroidism, unspecified; R82.90 Unspecified abnormal findings in urine; N39.0 Urinary tract infection, site not specified; R35.0 Frequency of micturition; Z79.4 Long term (current) use of insulin
CPT/HCPCS: 36415; 80053; 80061; 81001; 82043; 82306; 82436; 82570; 82610; 83036; 83735; 83935; 83970; 84133; 84156; 84300; 84550; 85025; 85652